=== PATIENT | male | born 1990 | race Two or more races ===

== ENCOUNTER 2017-12-25 10:52 | Inpatient (IN) | payer MEDICAID ==
[~2017-12-25] VITALS: Ht 165.1 cm; Wt 59.4 kg
[2017-12-25 11:51] LABS: BASOPHILS % (AUTO) 0.9 % (0.0-2.0); EOSINOPHILS % (AUTO) 0.2 % (0.0-3.0); HEMATOCRIT 38.4 % (42.0-52.0); HEMOGLOBIN 12.4 G/DL (14.2-18.0); LYMPHOCYTES % (AUTO) 24.7 % (20.0-45.0); MEAN CORPUSCULAR VOLUME 102 FL (80-99); MONOCYTES % (AUTO) 15.6 % (1.0-10.0); NEUTROPHILS % (AUTO) 58.5 % (45.0-75.0); PLATELET COUNT 434 K/UL (150-450); RED BLOOD COUNT 3.77 M/UL (4.70-6.10); RED CELL DISTRIBUTION WIDTH 13.9 % (11.6-14.8); WHITE BLOOD COUNT 6.6 K/UL (4.8-10.8)
[2017-12-25 12:06] LABS: ALANINE AMINOTRANSFERASE 23 U/L (12-78); ALBUMIN 3.9 G/DL (3.4-5.0); ALBUMIN/GLOBULIN RATIO 0.7 (1.0-2.7); ALKALINE PHOSPHATASE 308 U/L (46-116); ASPARTATE AMINO TRANSFERASE 33 U/L (15-37); BILIRUBIN,TOTAL 0.4 MG/DL (0.2-1.0); BLOOD UREA NITROGEN 68 mg/dL (7-18); CALCIUM 9.5 MG/DL (8.5-10.1); CHLORIDE 76 MMOL/L (98-107); CREATININE 1.4 MG/DL (0.55-1.30); SODIUM 133 MMOL/L (136-145)
[2017-12-25 12:25] LABS: POTASSIUM 2.5 MMOL/L (3.5-5.1)
[2017-12-25 12:27] LABS: CARBON DIOXIDE > 45 MMOL/L (21-32)
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
[2017-12-25] MEDS ORDERED: Morphine Sulfate 4mg/ml Inj IVP ONE (14:15)
[2017-12-25 14:47] VITALS: BP 93/63
[2017-12-25] MEDS ORDERED: BENADRYL25 MG ORAL (16:46)
[2017-12-25] MEDS ORDERED: ZYPREXA10 MG ORAL (16:46)
[2017-12-25] MEDS ORDERED: LORazepam Inj 2mg/ml 1ml IV PRN (18:00)
[2017-12-25] MEDS ORDERED: Mylanta II UD 30ml ORAL PRN (18:00)
[2017-12-25] MEDS ORDERED: Miralax 17gm pkt ORAL PRN (18:00)
[2017-12-25] MEDS ORDERED: Nitroglycerin Subl 0.4mg tab SL PRN (18:00)
[2017-12-25] MEDS: D5 1/2NS 1,000 ML IV SCH (18:47)
[2017-12-25 20:00] VITALS: BP 115/68
[2017-12-25] MEDS: Hydromorphone 0.5mg/0.5ml inj IVP PRN (21:36)
[2017-12-25] MEDS: Heparin 5000 units/ml inj SUBQ SCH (21:37)
[2017-12-26] VITALS: BP 135/69
[2017-12-26] MEDS: Hydromorphone 0.5mg/0.5ml inj IVP PRN ×7 (01:13→22:17)
[2017-12-26 04:00] VITALS: BP 120/71
[2017-12-26 07:23] LABS: ALANINE AMINOTRANSFERASE 12 U/L (12-78); ALBUMIN 2.8 G/DL (3.4-5.0); ALBUMIN/GLOBULIN RATIO 0.8 (1.0-2.7); ALKALINE PHOSPHATASE 219 U/L (46-116); AMYLASE 125 U/L (25-115); ASPARTATE AMINO TRANSFERASE 26 U/L (15-37); BILIRUBIN,TOTAL 0.4 MG/DL (0.2-1.0); BLOOD UREA NITROGEN 35 mg/dL (7-18); CALCIUM 7.9 MG/DL (8.5-10.1); CHLORIDE 93 MMOL/L (98-107); CREATININE 0.9 MG/DL (0.55-1.30); SODIUM 140 MMOL/L (136-145)
[2017-12-26 07:34] LABS: BASOPHILS % (AUTO) 1.6 % (0.0-2.0); EOSINOPHILS % (AUTO) 3.6 % (0.0-3.0); HEMATOCRIT 27.8 % (42.0-52.0); HEMOGLOBIN 9.2 G/DL (14.2-18.0); LYMPHOCYTES % (AUTO) 34.1 % (20.0-45.0); MEAN CORPUSCULAR VOLUME 102 FL (80-99); MONOCYTES % (AUTO) 12.1 % (1.0-10.0); NEUTROPHILS % (AUTO) 48.6 % (45.0-75.0); PLATELET COUNT 312 K/UL (150-450); RED BLOOD COUNT 2.72 M/UL (4.70-6.10); RED CELL DISTRIBUTION WIDTH 14.2 % (11.6-14.8); WHITE BLOOD COUNT 4.7 K/UL (4.8-10.8)
[2017-12-26 07:48] LABS: CARBON DIOXIDE > 45 MMOL/L (21-32); POTASSIUM 2.3 MMOL/L (3.5-5.1)
[2017-12-26] MEDS: D5 1/2NS 1,000 ML IV SCH (07:50)
[2017-12-26 08:11] VITALS: BP 127/71
[2017-12-26] MEDS: Pantoprazole Inj IV SCH (08:18)
[2017-12-26] MEDS: Heparin 5000 units/ml inj SUBQ SCH ×2 (08:18→22:19)
[2017-12-26] MEDS ORDERED: DiphenhydrAMINE 50mg/ml Inj IVP PRN (10:00)
[2017-12-26] MEDS: D5 1/2NS w/KCl 20mEq 1,000 ML IV SCH (10:31)
[2017-12-26 12:15] VITALS: BP 125/82
--- NOTE | 2017-12-26 12:43 | Diagnostic Imaging Report ---
Indication: Abdominal pain Technique: Multiplanar grayscale and color Doppler imaging of the abdomen Comparison: Correlation made to concurrent CT of the abdomen and pelvis Findings: Very limited exam given obscuration from overlying bandages. Only parts of the right lobe of the liver and right kidney were visualized. Right lobe liver measures 13 cm in length. Hepatic echogenicity is homogeneous. Portal vein is patent with normal direction of flow. No focal hepatic mass lesion is appreciated however evaluation is limited/incomplete. Right kidney measures 13.5 cm in length. Renal parenchymal echogenicity appears within normal limits. Simple appearing renal cysts are noted. No evidence of hydronephrosis. Color flow to the right kidney is normal. IMPRESSION: Markedly limited, incomplete exam. Per systems technologist, multiple areas of the abdomen were obscured by overlying bandages. Only portions of the right lobe of the liver and right kidney were visualized. No focal liver abnormality appreciated. Right kidney with simple appearing subcentimeter cysts.
[2017-12-26] MEDS ORDERED: Potassium Chloride 40 MEQ in Sodium Chloride 500ML 550 ML IVPB ONE (13:00)
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
[2017-12-26] MEDS: DiphenhydrAMINE 50mg/ml Inj IVP PRN ×2 (15:54→22:17)
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
[2017-12-26 16:00] VITALS: BP 133/87
[2017-12-26] MEDS: Metoclopramide 10mg/10ml Liq GT SCH ×2 (17:46→22:17)
[2017-12-26 20:00] VITALS: BP 145/74
[2017-12-26] MEDS ORDERED: Dyna-Hex 2% Top Sol 2oz TOPIC SCH (20:00)
[2017-12-27] VITALS: BP 128/79
[2017-12-27] MEDS: D5 1/2NS w/KCl 20mEq 1,000 ML IV SCH (00:23)
[2017-12-27] MEDS: Hydromorphone 0.5mg/0.5ml inj IVP PRN ×6 (01:28→17:01)
[2017-12-27 04:00] VITALS: BP 141/89
[2017-12-27] MEDS: DiphenhydrAMINE 50mg/ml Inj IVP PRN ×3 (04:24→16:53)
[2017-12-27] MEDS: Metoclopramide 10mg/10ml Liq GT SCH ×3 (05:41→18:23)
[2017-12-27 07:35] LABS: BASOPHILS % (AUTO) 1.1 % (0.0-2.0); EOSINOPHILS % (AUTO) 5.5 % (0.0-3.0); HEMATOCRIT 33.5 % (42.0-52.0); HEMOGLOBIN 11.2 G/DL (14.2-18.0); LYMPHOCYTES % (AUTO) 30.9 % (20.0-45.0); MEAN CORPUSCULAR VOLUME 102 FL (80-99); MONOCYTES % (AUTO) 16.4 % (1.0-10.0); NEUTROPHILS % (AUTO) 46.1 % (45.0-75.0); PLATELET COUNT 382 K/UL (150-450); RED BLOOD COUNT 3.28 M/UL (4.70-6.10); RED CELL DISTRIBUTION WIDTH 14.4 % (11.6-14.8); WHITE BLOOD COUNT 6.4 K/UL (4.8-10.8)
[2017-12-27 07:47] LABS: INR 1.1 (0.9-1.1)
[2017-12-27 07:53] LABS: AMYLASE 212 U/L (25-115); PHOSPHORUS 3.4 MG/DL (2.5-4.9)
[2017-12-27 08:08] LABS: ALANINE AMINOTRANSFERASE 20 U/L (12-78); ALBUMIN 3.2 G/DL (3.4-5.0); ALBUMIN/GLOBULIN RATIO 0.7 (1.0-2.7); ALKALINE PHOSPHATASE 257 U/L (46-116); ANION GAP 6 mmol/L (5-15); ASPARTATE AMINO TRANSFERASE 35 U/L (15-37); BILIRUBIN,TOTAL 0.4 MG/DL (0.2-1.0); BLOOD UREA NITROGEN 31 mg/dL (7-18); CALCIUM 8.2 MG/DL (8.5-10.1); CARBON DIOXIDE 35 MMOL/L (21-32); CHLORIDE 95 MMOL/L (98-107); FERRITIN 31 NG/ML (8-388); SODIUM 137 MMOL/L (136-145)
[2017-12-27 08:09] LABS: POTASSIUM 2.3 MMOL/L (3.5-5.1)
[2017-12-27 08:20] VITALS: BP 135/82
[2017-12-27 08:34] LABS: % IRON SATURATION 11 % (15-50); IRON 47 ug/dL (50-175); TOTAL IRON BINDING CAPACITY 441 ug/dL (250-450)
[2017-12-27] MEDS: Pantoprazole Inj IV SCH (08:36)
[2017-12-27] MEDS: Heparin 5000 units/ml inj SUBQ SCH (08:37)
[2017-12-27] MEDS ORDERED: Potassium Chloride 50 MEQ in Sodium Chloride 500ML 550 ML IVPB ONE (10:30)
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
[2017-12-27] MEDS ORDERED: Iron Sucrose 100 MG in NS 55 ML IV ONE (12:00)
[2017-12-27 12:20] VITALS: BP 130/91
[2017-12-27] MEDS ORDERED: D5NS w/KCl 40mEq 1000ml 1,000 ML IV SCH (13:00)
[2017-12-27] MEDS ORDERED: Iron Sucrose 200 MG in NS 110 ML IV ONE (13:00)
--- NOTE | 2017-12-27 13:03 | General Surgery Progress Note ---
General Surgery-Progress Note Subjective Additional Comments no acute events. doing well. Objective Last 24 Hour Vital Signs Date Time Temp Pulse Resp B/P (MAP) Pulse Ox O2 Delivery O2 Flow Rate FiO2 12/27/17 08:20 96.9 69 19 135/82 98 Room Air 96.9 12/27/17 04:00 98.3 57 19 141/89 99 Room Air 98.3 12/27/17 00:00 98.1 63 20 128/79 100 98.1 12/26/17 20:00 98.1 59 20 145/74 98 98.1 12/26/17 16:00 98.4 60 20 133/87 99 98.4 I&O Intake and Output 12/26/17 12/27/17 19:00 07:00 Intake Total 1635 ml 825 ml Output Total 400 ml Balance 1635 ml 425 ml Intake Oral 1560 ml IV Total 75 ml 825 ml Stool Total 400 ml # Voids 1 Cardiovascular: RSR Respiratory: clear Abdomen: soft, flat, non-tender Extremities: no cyanosis Laboratory Tests Test 12/27/17 06:00 White Blood Count 6.4 K/UL (4.8-10.8) Red Blood Count 3.28 M/UL (4.70-6.10) L Hemoglobin 11.2 G/DL (14.2-18.0) L Hematocrit 33.5 % (42.0-52.0) L Mean Corpuscular Volume 102 FL (80-99) H Mean Corpuscular Hemoglobin 34.2 PG (27.0-31.0) H Mean Corpuscular Hemoglobin Concent 33.5 G/DL (32.0-36.0) Red Cell Distribution Width 14.4 % (11.6-14.8) Platelet Count 382 K/UL (150-450) Mean Platelet Volume 6.9 FL (6.5-10.1) Neutrophils (%) (Auto) 46.1 % (45.0-75.0) Lymphocytes (%) (Auto) 30.9 % (20.0-45.0) Monocytes (%) (Auto) 16.4 % (1.0-10.0) H Eosinophils (%) (Auto) 5.5 % (0.0-3.0) H Basophils (%) (Auto) 1.1 % (0.0-2.0) Erythrocyte Sedimentation Rate 86 MM/HR (0-15) H Reticulocyte Count Pending Prothrombin Time 11.0 SEC (9.30-11.50) Prothromb Time International Ratio 1.1 (0.9-1.1) Activated Partial Thromboplast Time 24 SEC (23-33) Sodium Level 137 MMOL/L (136-145) Potassium Level 2.3 MMOL/L (3.5-5.1) *L Chloride Level 95 MMOL/L (98-107) L Carbon Dioxide Level 35 MMOL/L (21-32) H Anion Gap 6 mmol/L (5-15) Blood Urea Nitrogen 31 mg/dL (7-18) H Creatinine 1.0 MG/DL (0.55-1.30) Estimat Glomerular Filtration Rate > 60 mL/min (>60) Glucose Level 87 MG/DL (74-106) Calcium Level 8.2 MG/DL (8.5-10.1) L Phosphorus Level 3.4 MG/DL (2.5-4.9) Magnesium Level 2.1 MG/DL (1.8-2.4) Iron Level 47 ug/dL (50-175) L Total Iron Binding Capacity 441 ug/dL (250-450) Percent Iron Saturation 11 % (15-50) L Unsaturated Iron Binding 394 ug/dL (112-346) H Ferritin 31 NG/ML (8-388) Total Bilirubin 0.4 MG/DL (0.2-1.0) Aspartate Amino Transf (AST/SGOT) 35 U/L (15-37) Alanine Aminotransferase (ALT/SGPT) 20 U/L (12-78) Alkaline Phosphatase 257 U/L (46-116) H C-Reactive Protein, Quantitative < 0.4 mg/dL (0.00-0.90) Total Protein 8.0 G/DL (6.4-8.2) Albumin 3.2 G/DL (3.4-5.0) L Globulin 4.8 g/dL Albumin/Globulin Ratio 0.7 (1.0-2.7) L Amylase Level 212 U/L (25-115) H Lipase 104 U/L (73-393) Vitamin B12 Level 1331 PG/ML (193-986) H Folate 61.2 NG/ML (8.6-58.9) H Thyroid Stimulating Hormone (TSH) 3.381 uiU/mL (0.358-3.740) Free Thyroxine 0.95 NG/DL (0.76-1.46) Plan Problems: (1) Acute pancreatitis Assessment & Plan: 27M with complex medical / surgical history. GI intolerant on TPN dependancy. oral intake for comfort. CT very obscure. hx of pancreatitis with intermittent episodes. given history and findings can anticipate intermittent abd pain, nausea, emesis , pancreatitis. dehydration. etc. amylase elevated but clinically no pancreatitis. -TPN -hydration -pain medication -trend labs. no acute surgical intervention necessary. will follow with recs. Davi Dodd Dec 27, 2017 13:03
[2017-12-27 16:05] VITALS: BP 134/93
--- NOTE | 2017-12-27 16:35 | Pulmonology Progress Note ---
Assessment/Plan Problems: (1) Acute pancreatitis (2) Dehydration (3) Hypokalemia (4) Abdominal pain (5) History of nephrectomy (6) H/O splenectomy Assessment/Plan improving respiratory treatment oral feeding for comfort and pleasure pain is controlled K supplelement Subjective ROS Limited/Unobtainable: No Constitutional: Reports: no symptoms Respiratory: Reports: no symptoms Allergies: Coded Allergies: MEPERIDINE (Verified Allergy, Severe, 12/25/17) AMPHOTERICIN B (Verified Allergy, Intermediate, 12/25/17) VORICONAZOLE (Verified Allergy, Intermediate, 12/25/17) MORPHINE (Verified Allergy, Unknown, 12/25/17) Uncoded Allergies: CHAVA (Adverse Reaction, Unknown, 12/25/17) Objective Last 24 Hour Vital Signs Date Time Temp Pulse Resp B/P (MAP) Pulse Ox O2 Delivery O2 Flow Rate FiO2 12/27/17 16:05 98.3 59 21 134/93 99 Room Air 98.3 12/27/17 12:20 98.2 78 17 130/91 Room Air 98.2 12/27/17 12:20 98.4 78 17 130/91 100 Room Air 98.4 12/27/17 08:20 96.9 69 19 135/82 98 Room Air 96.9 12/27/17 04:00 98.3 57 19 141/89 99 Room Air 98.3 12/27/17 00:00 98.1 63 20 128/79 100 98.1 12/26/17 20:00 98.1 59 20 145/74 98 98.1 Intake and Output 12/26/17 12/27/17 19:00 07:00 Intake Total 1635 ml 825 ml Output Total 400 ml Balance 1635 ml 425 ml Intake Oral 1560 ml IV Total 75 ml 825 ml Stool Total 400 ml # Voids 1 General Appearance: WD/WN HEENT: normocephalic, atraumatic Respiratory/Chest: lungs clear, no respiratory distress Cardiovascular: normal peripheral pulses, regular rhythm Genitourinary: normal external genitalia Extremities: no clubbing Skin: no rash, no lesions Laboratory Tests 12/27/17 06:00: White Blood Count 6.4, Red Blood Count 3.28L, Hemoglobin 11.2L, Hematocrit 33.5L , Mean Corpuscular Volume 102H, Mean Corpuscular Hemoglobin 34.2H, Mean Corpuscular Hemoglobin Concent 33.5, Red Cell Distribution Width 14.4, Platelet Count 382, Mean Platelet Volume 6.9, Neutrophils (%) (Auto) 46.1, Lymphocytes (% ) (Auto) 30.9, Monocytes (%) (Auto) 16.4H, Eosinophils (%) (Auto) 5.5H, Basophils (%) (Auto) 1.1, Erythrocyte Sedimentation Rate 86H, Reticulocyte Count 0.5, Prothrombin Time 11.0, Prothromb Time International Ratio 1.1, Activated Partial Thromboplast Time 24, Sodium Level 137, Potassium Level 2.3*L , Chloride Level 95L, Carbon Dioxide Level 35H, Anion Gap 6, Blood Urea Nitrogen 31H, Creatinine 1.0, Estimat Glomerular Filtration Rate > 60, Glucose Level 87, Calcium Level 8.2L, Phosphorus Level 3.4, Magnesium Level 2.1, Iron Level 47L, Total Iron Binding Capacity 441, Percent Iron Saturation 11L, Unsaturated Iron Binding 394H, Ferritin 31, Total Bilirubin 0.4, Aspartate Amino Transf (AST/SGOT) 35, Alanine Aminotransferase (ALT/SGPT) 20, Alkaline Phosphatase 257H, C-Reactive Protein, Quantitative < 0.4, Total Protein 8.0, Albumin 3.2L, Globulin 4.8, Albumin/Globulin Ratio 0.7L, Amylase Level 212H, Lipase 104, Vitamin B12 Level 1331H, Folate 61.2H, Thyroid Stimulating Hormone ( TSH) 3.381, Free Thyroxine 0.95 Current Medications Medications (Trade) Dose Ordered Sig/Serenity Route PRN Reason Start Time Stop Time Status Last Admin Dose Admin Acetaminophen (Tylenol) 650 mg Q4H PRN ORAL fever (temp >100.5F) 12/25/17 18:00 01/24/18 17:59 Chlorhexidine Gluconate (Ashlyn-Hex 2%) 1 applic DAILY@2000 TOPIC 12/26/17 20:00 01/25/18 19:59 12/26/17 22:20 Dextrose (Dextrose 50%) STAT PRN IV Hypoglycemia 12/25/17 18:00 01/24/18 17:59 Dextrose/ Electrolytes 1,000 ml @ 75 mls/hr [id number] IV 12/27/17 13:00 01/26/18 12:59 12/27/17 15:46 Diphenhydramine HCl (Benadryl) 50 mg Q6H PRN IVP Itching 12/26/17 15:30 01/25/18 15:29 12/27/17 10:34 Fat Emulsion Intravenous 143 ml/Amino Acids/ Electrolytes/ Dextrose 2,580 ml @ 0 mls/hr DAILY@2100 IV 12/27/17 21:00 01/26/18 20:59 Heparin Sodium (Porcine) (Heparin 5000 units/ml) 5,000 units EVERY 12 HOURS SUBQ 12/25/17 21:00 01/24/18 20:59 12/27/17 08:37 Hydromorphone HCl (Dilaudid) 1.5 mg Q3H PRN IVP Severe Pain (Pain Scale 7-10) 12/27/17 14:00 01/03/18 13:59 12/27/17 14:00 Lactated Ringer's (Lactated Ringer's 1000ml) 3,500 ml DAILY@2100 IVLG 12/27/17 21:00 01/26/18 20:59 Lorazepam (Ativan 2mg/ml 1ml) 1 mg Q4H PRN IV agitation 12/25/17 18:00 01/01/18 17:59 Metoclopramide HCl (Reglan) 5 mg EVERY 6 HOURS GT 12/26/17 18:00 01/25/18 17:59 12/27/17 05:41 Nitroglycerin (Ntg) 0.4 mg Q5M X 3 DOSES PRN SL Prn Chest Pain 12/25/17 18:00 01/24/18 17:59 Ondansetron HCl (Zofran) 4 mg Q6H PRN IVP Nausea & Vomiting 12/25/17 18:00 01/24/18 17:59 Pantoprazole (Protonix) 40 mg DAILY IV 12/26/17 09:00 01/25/18 08:59 12/27/17 08:36 Potassium Chloride 100 ml @ 50 mls/hr ONCE ONCE IVPB 12/27/17 15:30 12/27/17 17:29 12/27/17 15:42 Temazepam (Restoril) 15 mg HSPRN PRN ORAL Insomnia 12/25/17 18:00 01/01/18 17:59 CHANDRAKANT VARGAS Dec 27, 2017 16:35
[2017-12-27] MEDS ORDERED: NS 275ml ONE (18:59)
[2017-12-27] MEDS ORDERED: Tubing IV Secondary IV ONE ×3 (18:59)
[2017-12-27] MEDS ORDERED: D5 1/2NS 1000ml IV ONE (18:59)
[2017-12-27] MEDS ORDERED: LR 1000ml IVLG SCH (21:00)
[2017-12-27] MEDS ORDERED: FAT EMULSION IV SCH (21:00)
[2017-12-27] MEDS ORDERED: TPN IV SCH (21:00)
--- NOTE | 2017-12-28 15:55 | Discharge Summary ---
Discharge Summary Hospital Course Date of Admission Dec 25, 2017 at 13:45 Date of Discharge Dec 27, 2017 at 19:00 Admitting Diagnosis ABDOMINAL PAIN, DEHYDRATION HPI Severiano Bell is a 27 year old male who was admitted on Dec 25, 2017 at 13:45 for Abdominal Pain, Dehydration Hospital Course [id number] Discharge Discharge Disposition Patient was discharged tO [facility] Discharge Diagnoses: Tita Gordillo NP Dec 28, 2017 15:55
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
== END 2017-12-27 19:00 | disposition home or self-care (01) | DRG 282 ==
LOC: EDBD 10:52 → EMR 12:20 → 4E 13:45 → EDBEDREQ 15:43 → 4E 17:22
DX: K85.90 Acute pancreatitis without necrosis or infection, unspecified (principal); Z43.1 Encounter for attention to gastrostomy; E87.6 Hypokalemia; E86.0 Dehydration; R10.9 Unspecified abdominal pain; Z90.5 Acquired absence of kidney; Z90.81 Acquired absence of spleen; Z88.6 Allergy status to analgesic agent; Z88.8 Allergy status to other drugs, medicaments and biological substances; K86.1 Other chronic pancreatitis; X95.9XXS Assault by unspecified firearm discharge, sequela
CPT/HCPCS: 36415; 74177; 76700; 80053; 82150; 82607; 82728; 82746; 83540; 83550; 83690; 83735; 84100; 84439; 84443; 85025; 85044; 85610; 85651; 85730; 86140; 87040; 87081; 99285; J2405

== ENCOUNTER 2017-12-29 16:55 | Inpatient (IN) | payer MEDICAID ==
[~2017-12-29] VITALS: Ht 165.1 cm; Wt 47.6 kg
[~2017-12-29 16:55] MED LIST: BENADRYL25 MG ORAL; ZYPREXA10 MG ORAL
[2017-12-29] MEDS ORDERED: HYDROmorphone 1mg/ml Carpuject IVP ONE ×2 (17:45→19:30)
[2017-12-29] MEDS ORDERED: Haloperidol 5mg/ml Inj IM ONE (17:45)
[2017-12-29] MEDS ORDERED: DiphenhydrAMINE 50mg/ml Inj IVP ONE (17:45)
[2017-12-29 18:22] LABS: BASOPHILS % (AUTO) 0.6 % (0.0-2.0); EOSINOPHILS % (AUTO) 0.1 % (0.0-3.0); HEMATOCRIT 39.2 % (42.0-52.0); HEMOGLOBIN 12.9 G/DL (14.2-18.0); LYMPHOCYTES % (AUTO) 12.8 % (20.0-45.0); MEAN CORPUSCULAR VOLUME 100 FL (80-99); MONOCYTES % (AUTO) 14.8 % (1.0-10.0); NEUTROPHILS % (AUTO) 71.7 % (45.0-75.0); PLATELET COUNT 395 K/UL (150-450); RED BLOOD COUNT 3.91 M/UL (4.70-6.10); RED CELL DISTRIBUTION WIDTH 13.4 % (11.6-14.8); WHITE BLOOD COUNT 12.6 K/UL (4.8-10.8)
[2017-12-29 18:27] LABS: ALANINE AMINOTRANSFERASE 21 U/L (12-78); ALBUMIN 4.5 G/DL (3.4-5.0); ALBUMIN/GLOBULIN RATIO 0.7 (1.0-2.7); ALKALINE PHOSPHATASE 327 U/L (46-116); AMYLASE 120 U/L (25-115); ASPARTATE AMINO TRANSFERASE 29 U/L (15-37); BLOOD UREA NITROGEN 44 mg/dL (7-18); CALCIUM 10.1 MG/DL (8.5-10.1); CHLORIDE 84 MMOL/L (98-107); CREATININE 2.1 MG/DL (0.55-1.30); SODIUM 138 MMOL/L (136-145)
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
[2017-12-29 18:43] LABS: POTASSIUM 2.4 MMOL/L (3.5-5.1)
[2017-12-29 18:45] LABS: CARBON DIOXIDE > 45 MMOL/L (21-32)
[2017-12-29] MEDS ORDERED: Potassium Chloride 40 MEQ in Sodium Chloride 500ML 550 ML IVPB ONE (18:45)
[2017-12-29 20:36] VITALS: BP 93/72
[2017-12-29] MEDS ORDERED: FENTANYL1 EAC3 TDERMAL (20:43)
[2017-12-29] MEDS ORDERED: TPN ELECTROLYTE20 M1 IV (21:21)
[2017-12-29] MEDS ORDERED: Miralax 17gm pkt ORAL PRN (23:30)
[2017-12-29] MEDS ORDERED: LORazepam Inj 2mg/ml 1ml IV PRN (23:30)
[2017-12-29] MEDS ORDERED: Mylanta II UD 30ml ORAL PRN (23:30)
[2017-12-29] MEDS ORDERED: Morphine Sulfate 2mg/ml Inj IVP PRN (23:30)
[2017-12-29] MEDS ORDERED: Nitroglycerin Subl 0.4mg tab SL PRN (23:30)
[2017-12-30] VITALS (7 sets, daily range): BP systolic 96–107; BP diastolic 56–80
[2017-12-30] MEDS: Potassium Chloride 40 MEQ in D5 1/2NS 1,000 ML IV SCH ×2 (01:55→09:36)
[2017-12-30 06:16] LABS: BASOPHILS % (AUTO) 0.9 % (0.0-2.0); EOSINOPHILS % (AUTO) 0.5 % (0.0-3.0); HEMATOCRIT 38.5 % (42.0-52.0); LYMPHOCYTES % (AUTO) 19.2 % (20.0-45.0); MEAN CORPUSCULAR VOLUME 101 FL (80-99); MONOCYTES % (AUTO) 18.9 % (1.0-10.0); NEUTROPHILS % (AUTO) 60.5 % (45.0-75.0); PLATELET COUNT 367 K/UL (150-450); RED BLOOD COUNT 3.82 M/UL (4.70-6.10); RED CELL DISTRIBUTION WIDTH 13.6 % (11.6-14.8); WHITE BLOOD COUNT 10.3 K/UL (4.8-10.8)
[2017-12-30 06:43] LABS: ALANINE AMINOTRANSFERASE 20 U/L (12-78); ALBUMIN 4.5 G/DL (3.4-5.0); ALBUMIN/GLOBULIN RATIO 0.8 (1.0-2.7); ALKALINE PHOSPHATASE 320 U/L (46-116); AMYLASE 95 U/L (25-115); ASPARTATE AMINO TRANSFERASE 30 U/L (15-37); BILIRUBIN,TOTAL 0.7 MG/DL (0.2-1.0); BLOOD UREA NITROGEN 50 mg/dL (7-18); CALCIUM 9.6 MG/DL (8.5-10.1); CHLORIDE 81 MMOL/L (98-107); CREATININE 3.5 MG/DL (0.55-1.30); POTASSIUM 3.3 MMOL/L (3.5-5.1); SODIUM 137 MMOL/L (136-145)
[2017-12-30 06:48] LABS: CARBON DIOXIDE > 45 MMOL/L (21-32)
[2017-12-30] MEDS ORDERED: DiphenhydrAMINE 50mg/ml Inj IVP PRN ×3 (08:30→15:45)
[2017-12-30] MEDS ORDERED: Pantoprazole Inj IV SCH ×2 (09:00→18:00)
[2017-12-30] MEDS ORDERED: Hydromorphone 0.5mg/0.5ml inj IVP PRN ×2 (09:00→17:00)
[2017-12-30] MEDS ORDERED: Heparin 5000 units/ml inj SUBQ SCH (09:00)
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
[2017-12-30] MEDS ORDERED: Sodium Chloride 500ML 500 ML IV ONE (11:30)
[2017-12-30] MEDS: D5NS w/KCl 40mEq 1000ml 1,000 ML IV SCH ×4 (12:22→21:23)
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
--- NOTE | 2017-12-30 14:53 | General Progress Note ---
Assessment/Plan Assessment/Plan GI CONSULT Dictated Will resume TPN tomorrow. Thank you Mode Martines MD Subjective Allergies: Coded Allergies: MEPERIDINE (Verified Allergy, Severe, 12/25/17) AMPHOTERICIN B (Verified Allergy, Intermediate, 12/25/17) VORICONAZOLE (Verified Allergy, Intermediate, 12/25/17) MORPHINE (Verified Allergy, Unknown, 12/25/17) Uncoded Allergies: CHAVA (Adverse Reaction, Unknown, 12/25/17) Objective Last 24 Hour Vital Signs Date Time Temp Pulse Resp B/P (MAP) Pulse Ox O2 Delivery O2 Flow Rate FiO2 12/30/17 12:00 91 12/30/17 12:00 97.9 89 18 107/56 99 Room Air 97.9 12/30/17 08:00 94 12/30/17 08:00 97.5 104 18 96/70 95 Room Air 97.5 12/30/17 04:00 96 12/30/17 04:00 97.2 105 18 96/74 96 Room Air 97.2 12/30/17 01:15 97.7 90 18 97/80 97 Room Air 97.7 12/30/17 01:00 92 12/30/17 00:50 98.5 107 12 99/74 98 Room Air 98.5 12/30/17 00:46 98.5 107 12 99/74 98 Room Air 98.5 12/29/17 20:36 98.5 103 14 93/72 97 Room Air 98.5 12/29/17 20:13 100.1 12/29/17 19:43 100.1 12/29/17 17:54 100.1 12/29/17 17:06 100.1 126 23 104/71 95 Room Air 100.0 Intake and Output 12/29/17 12/30/17 19:00 07:00 Intake Total 533 ml Output Total 3200 ml Balance -2667 ml Intake Oral 25 ml IV Total 508 ml Output Stool Total 3200 ml Laboratory Tests 12/29/17 17:49: White Blood Count 12.6H, Red Blood Count 3.91L, Hemoglobin 12.9L, Hematocrit 39.2L, Mean Corpuscular Volume 100H, Mean Corpuscular Hemoglobin 32.9H, Mean Corpuscular Hemoglobin Concent 32.9, Red Cell Distribution Width 13.4, Platelet Count 395, Mean Platelet Volume 7.5, Neutrophils (%) (Auto) 71.7, Lymphocytes (% ) (Auto) 12.8L, Monocytes (%) (Auto) 14.8H, Eosinophils (%) (Auto) 0.1, Basophils (%) (Auto) 0.6, Sodium Level 138, Potassium Level 2.4*L, Chloride Level 84L, Carbon Dioxide Level > 45*H, Blood Urea Nitrogen 44H, Creatinine 2.1H , Estimat Glomerular Filtration Rate 38.4, Glucose Level 122H, Calcium Level 10.1, Total Bilirubin 1.0, Aspartate Amino Transf (AST/SGOT) 29, Alanine Aminotransferase (ALT/SGPT) 21, Alkaline Phosphatase 327H, Total Protein 10.6H, Albumin 4.5, Globulin 6.1, Albumin/Globulin Ratio 0.7L, Amylase Level 120H, Lipase 98 12/30/17 05:30: White Blood Count 10.3, Red Blood Count 3.82L, Hemoglobin 13.0L, Hematocrit 38.5L, Mean Corpuscular Volume 101H, Mean Corpuscular Hemoglobin 34.1H, Mean Corpuscular Hemoglobin Concent 33.8, Red Cell Distribution Width 13.6, Platelet Count 367, Mean Platelet Volume 7.4, Neutrophils (%) (Auto) 60.5, Lymphocytes (% ) (Auto) 19.2L, Monocytes (%) (Auto) 18.9H, Eosinophils (%) (Auto) 0.5, Basophils (%) (Auto) 0.9, Sodium Level 137, Potassium Level 3.3L, Chloride Level 81L, Carbon Dioxide Level > 45*H, Blood Urea Nitrogen 50H, Creatinine 3.5# H, Estimat Glomerular Filtration Rate 21.3, Glucose Level 143H, Calcium Level 9.6, Total Bilirubin 0.7, Aspartate Amino Transf (AST/SGOT) 30, Alanine Aminotransferase (ALT/SGPT) 20, Alkaline Phosphatase 320H, Total Protein 10.5H, Albumin 4.5, Globulin 6.0, Albumin/Globulin Ratio 0.8L, Amylase Level 95, Lipase 81, Activated Partial Thromboplast Time 27, C-Reactive Protein, Quantitative 7.4H Height (Feet): 5 Height (Inches): 5.00 Weight (Pounds): 105 MODE MARTINES Dec 30, 2017 14:53
[2017-12-30] MEDS ORDERED: Nitroglycerin Subl 0.4mg tab SL PRN (16:30)
[2017-12-30] MEDS ORDERED: LORazepam Inj 2mg/ml 1ml IV PRN (17:00)
[2017-12-30] MEDS ORDERED: Miralax 17gm pkt ORAL PRN (17:00)
[2017-12-30] MEDS: DiphenhydrAMINE 50mg/ml Inj IVP PRN (18:46)
[2017-12-30] MEDS: Pantoprazole Inj IV SCH (18:46)
[2017-12-30] MEDS: Hydromorphone 0.5mg/0.5ml inj IVP PRN ×2 (18:47→22:51)
[2017-12-30] MEDS ORDERED: Dyna-Hex 2% Top Sol 2oz TOPIC SCH (20:00)
[2017-12-30] MEDS: Dyna-Hex 2% Top Sol 2oz TOPIC SCH (21:22)
[2017-12-30] MEDS: Heparin 5000 units/ml inj SUBQ SCH (21:25)
[2017-12-31] VITALS: BP 91/61
[2017-12-31 01:58] LABS: BILIRUBIN, URINE NEGATIVE (NEGATIVE); GLUCOSE, URINE (UA) NEGATIVE (NEGATIVE); KETONES,URINE NEGATIVE (NEGATIVE); LEUKOCYTE ESTERASE ,URINE 1+ (NEGATIVE); NITRITE,URINE NEGATIVE (NEGATIVE); PH,URINE 8 (4.5-8.0); PROTEIN,URINE 2+ (NEGATIVE); UROBILINOGEN,URINE NORMAL MG/DL (0.0-1.0)
[2017-12-31 02:05] LABS: APPEARANCE,URINE SLIGHTLY CLOUDY; COLOR,URINE YELLOW
[2017-12-31] MEDS: Hydromorphone 0.5mg/0.5ml inj IVP PRN ×6 (02:55→23:49)
[2017-12-31] MEDS: DiphenhydrAMINE 50mg/ml Inj IVP PRN ×3 (02:56→21:11)
[2017-12-31] MEDS: D5NS w/KCl 40mEq 1000ml 1,000 ML IV SCH ×4 (03:00→18:09)
[2017-12-31 04:00] VITALS: BP 114/78
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
[2017-12-31 06:40] LABS: HEMATOCRIT 26.8 % (42.0-52.0); HEMOGLOBIN 8.9 G/DL (14.2-18.0); MEAN CORPUSCULAR VOLUME 102 FL (80-99); PLATELET COUNT 271 K/UL (150-450); RED BLOOD COUNT 2.62 M/UL (4.70-6.10); RED CELL DISTRIBUTION WIDTH 13.4 % (11.6-14.8); WHITE BLOOD COUNT 5.8 K/UL (4.8-10.8)
[2017-12-31 07:30] LABS: ALANINE AMINOTRANSFERASE 15 U/L (12-78); ALBUMIN 2.7 G/DL (3.4-5.0); ALBUMIN/GLOBULIN RATIO 0.7 (1.0-2.7); ALKALINE PHOSPHATASE 198 U/L (46-116); ANION GAP 4 mmol/L (5-15); ASPARTATE AMINO TRANSFERASE 18 U/L (15-37); BILIRUBIN,TOTAL 0.4 MG/DL (0.2-1.0); BLOOD UREA NITROGEN 35 mg/dL (7-18); CALCIUM 7.9 MG/DL (8.5-10.1); CARBON DIOXIDE 36 MMOL/L (21-32); CHLORIDE 103 MMOL/L (98-107); CHOLESTEROL 146 MG/DL (< 200); CREATININE 1.9 MG/DL (0.55-1.30); FERRITIN 237 NG/ML (8-388); HDL CHOLESTEROL 41 MG/DL (40-60); PHOSPHORUS 3.1 MG/DL (2.5-4.9); POTASSIUM 3.4 MMOL/L (3.5-5.1); SODIUM 143 MMOL/L (136-145); TRIGLYCERIDES 62 MG/DL (30-150)
[2017-12-31 07:33] LABS: % IRON SATURATION 17 % (15-50); IRON 46 ug/dL (50-175); TOTAL IRON BINDING CAPACITY 276 ug/dL (250-450)
[2017-12-31 08:00] VITALS: BP 102/60
[2017-12-31] MEDS: Heparin 5000 units/ml inj SUBQ SCH ×2 (09:07→21:00)
[2017-12-31] MEDS: Pantoprazole Inj IV SCH ×2 (09:10→18:09)
[2017-12-31] MEDS ORDERED: Iron Sucrose 200 MG in NS 50 ML IV ONE (10:00)
--- NOTE | 2017-12-31 10:22 | Diagnostic Imaging Report ---
Indication:Abdominal pain Technique: Grayscale and duplex Doppler imaging of the abdomen performed. Comparison: None Findings: Study is incomplete. Patient asked to stop scanning during the examination which only barely commenced. Visualized part of the liver is unremarkable. IMPRESSION: Incomplete study.
--- NOTE | 2017-12-31 10:51 | Nephrology Progress Note ---
Assessment/Plan Problem List: (1) Acute kidney injury (2) Dehydration (3) Hypokalemia Assessment (1) Acute renal failure resolving (2) Dehydration resolving (3) Hypokalemia resolving (4) h/o Abdominal pain (5) History of nephrectomy (6) H/O splenectomy Plan Plan: D%NS with K 200 cc hour until TPN starts Urine studies Monitor renal parameters Per orders Subjective ROS Limited/Unobtainable: No Objective Objective Last 24 Hour Vital Signs Date Time Temp Pulse Resp B/P (MAP) Pulse Ox O2 Delivery O2 Flow Rate FiO2 12/31/17 08:00 97.4 59 18 102/60 99 97.4 12/31/17 04:00 98.4 64 21 114/78 98 98.4 12/31/17 00:00 97.2 67 20 91/61 98 97.2 12/30/17 20:15 97.0 76 18 99/68 95 Room Air 97.0 12/30/17 16:33 98.1 74 18 100/69 98 Room Air 98.1 12/30/17 12:00 91 12/30/17 12:00 97.9 89 18 107/56 99 Room Air 97.9 Intake and Output 12/30/17 12/31/17 19:00 07:00 Intake Total 800 ml 2000 ml Output Total 2000 ml Balance 800 ml 0 ml Intake Oral 600 ml 600 ml IV Total 200 ml 1400 ml Output Stool Total 2000 ml Laboratory Tests 12/31/17 01:00: Urine Color Yellow, Urine Appearance Slightly cloudy, Urine pH 8, Urine Specific [place] 1.010, Urine Protein 2+H, Urine Glucose (UA) Negative, Urine Ketones Negative, Urine Occult Blood 4+H, Urine Nitrite Negative, Urine Bilirubin Negative, Urine Urobilinogen Normal, Urine Leukocyte Esterase 1+H, Urine RBC TntcH, Urine WBC 2-4, Urine Squamous Epithelial Cells Few, Urine Bacteria Few, Urine Hyaline Casts 0-2H, Urine Fine Granular Casts 2-4H, Urine Random Sodium 58, Urine Opiates Screen PositiveH, Urine Barbiturates Screen Negative, Phencyclidine (PCP) Screen Negative, Urine Amphetamines Screen Negative, Urine Benzodiazepines Screen Negative, Urine Cocaine Screen Negative, Urine Marijuana (THC) Screen PositiveH 12/31/17 06:00: White Blood Count 5.8, Red Blood Count 2.62L, Hemoglobin 8.9#L, Hematocrit 26.8# L, Mean Corpuscular Volume 102H, Mean Corpuscular Hemoglobin 34.1H, Mean Corpuscular Hemoglobin Concent 33.3, Red Cell Distribution Width 13.4, Platelet Count 271, Mean Platelet Volume 7.9, Neutrophils (%) (Auto) , Lymphocytes (%) ( Auto) , Monocytes (%) (Auto) , Eosinophils (%) (Auto) , Basophils (%) (Auto) , Sodium Level 143, Potassium Level 3.4L, Chloride Level 103, Carbon Dioxide Level 36H, Anion Gap 4L, Blood Urea Nitrogen 35H, Creatinine 1.9H, Estimat Glomerular Filtration Rate 43.1, Glucose Level 92, Uric Acid 7.7H, Calcium Level 7.9L, Phosphorus Level 3.1, Magnesium Level 1.8, Iron Level 46L, Total Iron Binding Capacity 276, Percent Iron Saturation 17, Unsaturated Iron Binding 230, Ferritin 237, Total Bilirubin 0.4, Aspartate Amino Transf (AST/SGOT) 18, Alanine Aminotransferase (ALT/SGPT) 15, Alkaline Phosphatase 198H, Pro-B-Type Natriuretic Peptide 26, Total Protein 6.8#, Albumin 2.7L, Globulin 4.1, Albumin/ Globulin Ratio 0.7L, Triglycerides Level 62, Cholesterol Level 146, LDL Cholesterol 92, HDL Cholesterol 41, Cholesterol/HDL Ratio 3.6, Vitamin B12 Level 995H, Folate 44.9 Height (Feet): 5 Height (Inches): 5.00 Weight (Pounds): 105 General Appearance: no apparent distress Objective no change LANDEN CEBALLOS Dec 31, 2017 10:51
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
[2017-12-31 12:00] VITALS: BP 108/78
[2017-12-31] MEDS ORDERED: Potassium Chloride 40 MEQ in Sodium Chloride 500ML 550 ML IVPB ONE (12:00)
[2017-12-31] MEDS ORDERED: NS 500ML ONE (15:05)
[2017-12-31 16:15] VITALS: BP 108/65
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
[2017-12-31 20:00] VITALS: BP_SYST 101; BP_SYST 132; BP_DIAS 66; BP_DIAS 74
[2017-12-31] MEDS: Dyna-Hex 2% Top Sol 2oz TOPIC SCH (20:00)
[2017-12-31] MEDS ORDERED: TPN IV SCH (21:00)
[2017-12-31] MEDS ORDERED: FAT EMULSION 20% IV SCH (21:00)
[2018-01-01] VITALS: BP 105/66
[2018-01-01] MEDS: DiphenhydrAMINE 50mg/ml Inj IVP PRN ×4 (03:41→21:49)
[2018-01-01 04:00] VITALS: BP 106/68
[2018-01-01] MEDS: Hydromorphone 0.5mg/0.5ml inj IVP PRN ×4 (04:11→16:18)
[2018-01-01 07:10] LABS: HEMATOCRIT 27.5 % (42.0-52.0); HEMOGLOBIN 8.8 G/DL (14.2-18.0); MEAN CORPUSCULAR VOLUME 105 FL (80-99); PLATELET COUNT 183 K/UL (150-450); RED BLOOD COUNT 2.61 M/UL (4.70-6.10); RED CELL DISTRIBUTION WIDTH 14.3 % (11.6-14.8); WHITE BLOOD COUNT 5.2 K/UL (4.8-10.8)
[2018-01-01 07:35] LABS: ALANINE AMINOTRANSFERASE 17 U/L (12-78); ALBUMIN 2.9 G/DL (3.4-5.0); ALBUMIN/GLOBULIN RATIO 0.7 (1.0-2.7); ALKALINE PHOSPHATASE 202 U/L (46-116); ANION GAP 7 mmol/L (5-15); ASPARTATE AMINO TRANSFERASE 24 U/L (15-37); BILIRUBIN,TOTAL 0.4 MG/DL (0.2-1.0); BLOOD UREA NITROGEN 19 mg/dL (7-18); CALCIUM 8.5 MG/DL (8.5-10.1); CARBON DIOXIDE 25 MMOL/L (21-32); CHLORIDE 109 MMOL/L (98-107); GAMMA GLUTAMYL TRANSPEPTIDASE 289 U/L (5-85); PHOSPHORUS 3.2 MG/DL (2.5-4.9); POTASSIUM 5.6 MMOL/L (3.5-5.1); SODIUM 141 MMOL/L (136-145)
[2018-01-01 08:00] VITALS: BP 113/71
[2018-01-01] MEDS: Heparin 5000 units/ml inj SUBQ SCH ×2 (09:00→21:00)
[2018-01-01] MEDS: Pantoprazole Inj IV SCH (09:34)
[2018-01-01 12:00] VITALS: BP 123/76
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
--- NOTE | 2018-01-01 14:53 | Nephrology Progress Note ---
Assessment/Plan Problem List: (1) Acute kidney injury (2) Dehydration (3) Hypokalemia Assessment (1) Acute renal failure resolving (2) Dehydration resolving (3) Hypokalemia resolving (4) h/o Abdominal pain (5) History of nephrectomy (6) H/O splenectomy Plan Plan: D%NS with K 200 cc hour until TPN starts Urine studies Monitor renal parameters Per orders Subjective ROS Limited/Unobtainable: No Constitutional: Reports: malaise Objective Objective Last 24 Hour Vital Signs Date Time Temp Pulse Resp B/P (MAP) Pulse Ox O2 Delivery O2 Flow Rate FiO2 01/01/18 12:00 99.2 68 20 123/76 98 99.2 01/01/18 08:00 98.2 69 20 113/71 98 98.2 01/01/18 04:41 97.3 01/01/18 04:00 97.3 60 21 106/68 99 97.3 01/01/18 00:00 97.3 53 18 105/66 99 97.3 12/31/17 23:49 97.6 12/31/17 20:00 97.6 66 20 101/74 100 97.6 12/31/17 16:15 97.6 57 18 108/65 99 Room Air 97.6 Intake and Output 12/31/17 01/01/18 19:00 07:00 Intake Total 240 ml 2340 ml Output Total 400 ml Balance 240 ml 1940 ml Intake Oral 240 ml 1000 ml IV Total 1340 ml Output Urine Total 400 ml # Voids 5 Laboratory Tests 01/01/18 06:00: White Blood Count 5.2, Red Blood Count 2.61L, Hemoglobin 8.8L, Hematocrit 27.5L , Mean Corpuscular Volume 105H, Mean Corpuscular Hemoglobin 33.5H, Mean Corpuscular Hemoglobin Concent 31.8L, Red Cell Distribution Width 14.3, Platelet Count 183, Mean Platelet Volume 7.0, Neutrophils (%) (Auto) , Lymphocytes (%) (Auto) , Monocytes (%) (Auto) , Eosinophils (%) (Auto) , Basophils (%) (Auto) , Differential Total Cells Counted 100, Neutrophils % ( Manual) 40L, Lymphocytes % (Manual) 32, Monocytes % (Manual) 22H, Eosinophils % (Manual) 6H, Basophils % (Manual) 0, Band Neutrophils 0, Platelet Estimate Adequate, Platelet Morphology Normal, Hypochromasia 2+, Anisocytosis 1+, Macrocytosis 1+, Erythrocyte Sedimentation Rate 77H, Sodium Level 141, Potassium Level 5.6#H, Chloride Level 109H, Carbon Dioxide Level 25, Anion Gap 7 , Blood Urea Nitrogen 19H, Creatinine 1.0, Estimat Glomerular Filtration Rate > 60, Glucose Level 53L, Uric Acid 4.8, Calcium Level 8.5, Phosphorus Level 3.2, Magnesium Level 2.1, Total Bilirubin 0.4, Gamma Glutamyl Transpeptidase 289H, Aspartate Amino Transf (AST/SGOT) 24, Alanine Aminotransferase (ALT/SGPT) 17, Alkaline Phosphatase 202H, C-Reactive Protein, Quantitative 1.7H, Total Protein 7.2, Albumin 2.9L, Globulin 4.3, Albumin/Globulin Ratio 0.7L, Amylase Level 86, Lipase 82 01/01/18 12:01: Sodium Level [Pending], Potassium Level [Pending], Chloride Level [Pending], Carbon Dioxide Level [Pending], Blood Urea Nitrogen [Pending], Creatinine [ Pending], Estimat Glomerular Filtration Rate [Pending], Glucose Level [Pending] , Calcium Level [Pending] Height (Feet): 5 Height (Inches): 5.00 Weight (Pounds): 105 General Appearance: no apparent distress Objective no change LANDEN CEBALLOS Jan 01, 2018 14:52
[2018-01-01 15:50] VITALS: BP 133/74
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
[2018-01-01] MEDS: Pantoprazole Inj IVP SCH (16:17)
[2018-01-01 17:14] LABS: ANION GAP 6 mmol/L (5-15); BLOOD UREA NITROGEN 25 mg/dL (7-18); CALCIUM 9.3 MG/DL (8.5-10.1); CARBON DIOXIDE 27 MMOL/L (21-32); CHLORIDE 107 MMOL/L (98-107); POTASSIUM 4.6 MMOL/L (3.5-5.1); SODIUM 140 MMOL/L (136-145)
[2018-01-01 20:00] VITALS: BP 118/77
[2018-01-01] MEDS: Dyna-Hex 2% Top Sol 2oz TOPIC SCH (20:12)
[2018-01-01] MEDS ORDERED: FAT EMULSION 20% IV SCH (21:00)
[2018-01-01] MEDS ORDERED: TPN IV SCH (21:00)
[2018-01-02] VITALS: BP 111/69
[2018-01-02] MEDS: DiphenhydrAMINE 50mg/ml Inj IVP PRN ×4 (03:52→22:07)
[2018-01-02 04:00] VITALS: BP 108/73
[2018-01-02 08:00] VITALS: BP 115/79
[2018-01-02] MEDS: Pantoprazole Inj IVP SCH (08:24)
[2018-01-02] MEDS: Heparin 5000 units/ml inj SUBQ SCH ×2 (08:33→20:36)
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
[2018-01-02 10:10] LABS: ALANINE AMINOTRANSFERASE 16 U/L (12-78); ALBUMIN 3.3 G/DL (3.4-5.0); ALBUMIN/GLOBULIN RATIO 0.7 (1.0-2.7); ALKALINE PHOSPHATASE 227 U/L (46-116); ANION GAP 10 mmol/L (5-15); ASPARTATE AMINO TRANSFERASE 20 U/L (15-37); BILIRUBIN,TOTAL 0.4 MG/DL (0.2-1.0); BLOOD UREA NITROGEN 33 mg/dL (7-18); CARBON DIOXIDE 24 MMOL/L (21-32); CHLORIDE 104 MMOL/L (98-107); CREATININE 1.1 MG/DL (0.55-1.30); PHOSPHORUS 4.2 MG/DL (2.5-4.9); POTASSIUM 3.9 MMOL/L (3.5-5.1); SODIUM 137 MMOL/L (136-145)
[2018-01-02 12:00] VITALS: BP 125/82
--- NOTE | 2018-01-02 12:42 | Nephrology Progress Note ---
Assessment/Plan Problem List: (1) Acute kidney injury (2) Dehydration (3) Hypokalemia Assessment (1) Acute renal failure resolving (2) Dehydration resolving (3) Hypokalemia resolving (4) h/o Abdominal pain (5) History of nephrectomy (6) H/O splenectomy Plan Plan: D%NS with K 200 cc hour until TPN starts Urine studies Monitor renal parameters Per orders Subjective ROS Limited/Unobtainable: No Constitutional: Reports: malaise Objective Objective Last 24 Hour Vital Signs Date Time Temp Pulse Resp B/P (MAP) Pulse Ox O2 Delivery O2 Flow Rate FiO2 01/02/18 08:00 98.6 76 20 115/79 97 98.6 01/02/18 04:00 98.4 71 18 108/73 97 98.4 01/02/18 00:00 97.9 64 20 111/69 98 97.9 01/01/18 20:00 97.5 70 20 118/77 100 97.5 01/01/18 15:50 98.3 68 22 133/74 99 Room Air 98.3 Intake and Output 01/01/18 01/02/18 19:00 07:00 Intake Total 2240 ml 1740 ml Output Total 1075 ml Balance 1165 ml 1740 ml Intake Oral 1600 ml 400 ml IV Total 640 ml 1340 ml Output Urine Total 1075 ml Laboratory Tests 01/01/18 16:00: Sodium Level 140, Potassium Level 4.6, Chloride Level 107, Carbon Dioxide Level 27, Anion Gap 6, Blood Urea Nitrogen 25H, Creatinine 1.0, Estimat Glomerular Filtration Rate > 60, Glucose Level 65L, Calcium Level 9.3 01/02/18 09:00: Sodium Level 137, Potassium Level 3.9, Chloride Level 104, Carbon Dioxide Level 24, Anion Gap 10, Blood Urea Nitrogen 33H, Creatinine 1.1, Estimat Glomerular Filtration Rate > 60, Glucose Level 75, Calcium Level 9.0, Phosphorus Level 4.2 , Magnesium Level 1.7L, Total Bilirubin 0.4, Aspartate Amino Transf (AST/SGOT) 20, Alanine Aminotransferase (ALT/SGPT) 16, Alkaline Phosphatase 227H, Total Protein 8.0, Albumin 3.3L, Globulin 4.7, Albumin/Globulin Ratio 0.7L Height (Feet): 5 Height (Inches): 5.00 Weight (Pounds): 105 General Appearance: no apparent distress Objective no change LANDEN CEBALLOS Jan 02, 2018 12:42
[2018-01-02] MEDS ORDERED: Cathflo Alteplase 2mg Inj INJ ONE ×2 (14:30→14:45)
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
[2018-01-02 16:00] VITALS: BP 128/90
[2018-01-02 20:00] VITALS: BP 122/82
[2018-01-02] MEDS: Dyna-Hex 2% Top Sol 2oz TOPIC SCH (20:31)
[2018-01-02] MEDS: TPN IV SCH (20:40)
[2018-01-02] MEDS: FAT EMULSION 20% IV SCH (20:40)
[2018-01-03] VITALS: BP 133/69
[2018-01-03 04:00] VITALS: BP 122/86
[2018-01-03] MEDS: DiphenhydrAMINE 50mg/ml Inj IVP PRN ×4 (04:05→22:38)
[2018-01-03 07:11] LABS: BASOPHILS % (AUTO) 1.3 % (0.0-2.0); EOSINOPHILS % (AUTO) 2.8 % (0.0-3.0); HEMATOCRIT 30.5 % (42.0-52.0); HEMOGLOBIN 10.2 G/DL (14.2-18.0); LYMPHOCYTES % (AUTO) 22.1 % (20.0-45.0); MEAN CORPUSCULAR VOLUME 103 FL (80-99); MONOCYTES % (AUTO) 13.4 % (1.0-10.0); NEUTROPHILS % (AUTO) 60.4 % (45.0-75.0); PLATELET COUNT 302 K/UL (150-450); RED BLOOD COUNT 2.98 M/UL (4.70-6.10); RED CELL DISTRIBUTION WIDTH 14.1 % (11.6-14.8); WHITE BLOOD COUNT 7.2 K/UL (4.8-10.8)
[2018-01-03 07:22] LABS: ANION GAP 12 mmol/L (5-15); BLOOD UREA NITROGEN 40 mg/dL (7-18); CALCIUM 8.9 MG/DL (8.5-10.1); CARBON DIOXIDE 21 MMOL/L (21-32); CHLORIDE 102 MMOL/L (98-107); PHOSPHORUS 3.9 MG/DL (2.5-4.9); POTASSIUM 3.8 MMOL/L (3.5-5.1); SODIUM 135 MMOL/L (136-145)
[2018-01-03 08:00] VITALS: BP 110/68
[2018-01-03] MEDS: Heparin 5000 units/ml inj SUBQ SCH ×2 (09:00→21:00)
[2018-01-03] MEDS: Pantoprazole Inj IVP SCH (09:15)
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
[2018-01-03] MEDS: Magnesium Sulfate 1gm/100ml IVPB SCH ×2 (12:30→14:06)
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
[2018-01-03 16:00] VITALS: BP 136/94
--- NOTE | 2018-01-03 17:13 | Nephrology Progress Note ---
Assessment/Plan Problem List: (1) Acute kidney injury (2) Dehydration (3) Hypokalemia Assessment (1) Acute renal failure resolving (2) Dehydration resolving (3) Hypokalemia resolving (4) h/o Abdominal pain (5) History of nephrectomy (6) H/O splenectomy Plan Plan: D%NS with K 200 cc hour until TPN starts Urine studies Monitor renal parameters Per orders Subjective ROS Limited/Unobtainable: No Constitutional: Reports: malaise Objective Objective Last 24 Hour Vital Signs Date Time Temp Pulse Resp B/P (MAP) Pulse Ox O2 Delivery O2 Flow Rate FiO2 01/03/18 16:00 98.2 80 20 136/94 97 Room Air 98.2 01/03/18 08:00 97.6 64 20 110/68 99 97.6 01/03/18 04:00 98.1 81 20 122/86 98 98.1 01/03/18 00:00 97.9 66 18 133/69 99 Room Air 97.9 01/02/18 20:00 98.0 75 18 122/82 97 Room Air 98.0 Intake and Output 01/02/18 01/03/18 19:00 07:00 Intake Total 1405 ml 1590 ml Output Total 1100 ml 2000 ml Balance 305 ml -410 ml Intake Oral 800 ml 240 ml IV Total 605 ml 1350 ml Stool Total 1100 ml 2000 ml # Voids 3 Laboratory Tests 01/03/18 05:40: White Blood Count 7.2, Red Blood Count 2.98L, Hemoglobin 10.2L, Hematocrit 30.5L , Mean Corpuscular Volume 103H, Mean Corpuscular Hemoglobin 34.2H, Mean Corpuscular Hemoglobin Concent 33.3, Red Cell Distribution Width 14.1, Platelet Count 302, Mean Platelet Volume 7.3, Neutrophils (%) (Auto) 60.4, Lymphocytes (% ) (Auto) 22.1, Monocytes (%) (Auto) 13.4H, Eosinophils (%) (Auto) 2.8, Basophils (%) (Auto) 1.3, Sodium Level 135L, Potassium Level 3.8, Chloride Level 102, Carbon Dioxide Level 21, Anion Gap 12, Blood Urea Nitrogen 40H, Creatinine 1.0, Estimat Glomerular Filtration Rate > 60, Glucose Level 37*L, Calcium Level 8.9, Phosphorus Level 3.9, Magnesium Level 1.7L 01/03/18 08:25: Glucose Level 115H Height (Feet): 5 Height (Inches): 5.00 Weight (Pounds): 105 General Appearance: no apparent distress Objective no change LANDEN CEBALLOS 1, 2018 17:13
[2018-01-03 20:00] VITALS: BP 122/89
[2018-01-03] MEDS: Dyna-Hex 2% Top Sol 2oz TOPIC SCH (20:00)
[2018-01-03] MEDS: FAT EMULSION 20% IV SCH (21:34)
[2018-01-03] MEDS: TPN IV SCH (21:34)
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
[2018-01-04] VITALS: BP 119/88
[2018-01-04 04:00] VITALS: BP 127/72
[2018-01-04] MEDS: DiphenhydrAMINE 50mg/ml Inj IVP PRN ×4 (04:34→23:07)
[2018-01-04 08:00] VITALS: BP 123/63
[2018-01-04 08:13] LABS: ANION GAP 11 mmol/L (5-15); BLOOD UREA NITROGEN 49 mg/dL (7-18); CALCIUM 9.4 MG/DL (8.5-10.1); CARBON DIOXIDE 22 MMOL/L (21-32); CHLORIDE 101 MMOL/L (98-107); CREATININE 1.2 MG/DL (0.55-1.30); PHOSPHORUS 4.8 MG/DL (2.5-4.9); POTASSIUM 3.9 MMOL/L (3.5-5.1); SODIUM 134 MMOL/L (136-145)
[2018-01-04] MEDS: Heparin 5000 units/ml inj SUBQ SCH ×2 (09:00→21:00)
[2018-01-04] MEDS: Pantoprazole Inj IVP SCH (09:36)
[2018-01-04 12:00] VITALS: BP 128/88
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
[2018-01-04 16:00] VITALS: BP 108/81
--- NOTE | 2018-01-04 16:31 | Nephrology Progress Note ---
Assessment/Plan Problem List: (1) Acute kidney injury (2) Dehydration (3) Hypokalemia Assessment (1) Acute renal failure resolving (2) Dehydration resolving (3) Hypokalemia resolving (4) h/o Abdominal pain (5) History of nephrectomy (6) H/O splenectomy Plan Plan: TPN Urine studies Monitor renal parameters Per orders DC planning Subjective ROS Limited/Unobtainable: No Constitutional: Reports: malaise Objective Objective Last 24 Hour Vital Signs Date Time Temp Pulse Resp B/P (MAP) Pulse Ox O2 Delivery O2 Flow Rate FiO2 01/04/18 12:00 97.8 78 18 128/88 100 Room Air 97.8 01/04/18 08:00 97.4 71 18 123/63 100 Room Air 97.4 01/04/18 04:00 97.5 18 127/72 99 Room Air 97.5 01/04/18 00:00 98.2 86 18 119/88 97 Room Air 98.2 01/04/18 00:00 Room Air 01/03/18 20:00 Room Air 01/03/18 20:00 97.7 83 18 122/89 100 Room Air 97.7 Intake and Output 01/03/18 01/04/18 19:00 07:00 Intake Total 2000 ml 2850 ml Output Total 2000 ml Balance 2000 ml 850 ml Intake Oral 2000 ml 1500 ml IV Total 1350 ml Stool Total 2000 ml # Voids 8 5 Laboratory Tests 01/04/18 07:00: Sodium Level 134L, Potassium Level 3.9, Chloride Level 101, Carbon Dioxide Level 22, Anion Gap 11, Blood Urea Nitrogen 49H, Creatinine 1.2, Estimat Glomerular Filtration Rate > 60, Glucose Level 52L, Calcium Level 9.4, Phosphorus Level 4.8, Magnesium Level 2.4 Height (Feet): 5 Height (Inches): 5.00 Weight (Pounds): 105 General Appearance: no apparent distress Objective no change LANDEN CEBALLOS Jan 04, 2018 16:31
[2018-01-04 20:00] VITALS: BP 103/78
[2018-01-04] MEDS: Dyna-Hex 2% Top Sol 2oz TOPIC SCH (21:08)
[2018-01-04] MEDS: TPN IV SCH (21:11)
[2018-01-04] MEDS: FAT EMULSION 20% IV SCH (21:11)
[2018-01-05] VITALS: BP 125/75
[2018-01-05 04:00] VITALS: BP 123/78
[2018-01-05] MEDS: DiphenhydrAMINE 50mg/ml Inj IVP PRN ×4 (05:18→23:44)
[2018-01-05 06:27] LABS: BASOPHILS % (AUTO) 1.2 % (0.0-2.0); EOSINOPHILS % (AUTO) 1.8 % (0.0-3.0); HEMATOCRIT 38.4 % (42.0-52.0); HEMOGLOBIN 12.5 G/DL (14.2-18.0); LYMPHOCYTES % (AUTO) 45.2 % (20.0-45.0); MEAN CORPUSCULAR VOLUME 102 FL (80-99); MONOCYTES % (AUTO) 13.4 % (1.0-10.0); NEUTROPHILS % (AUTO) 38.5 % (45.0-75.0); PLATELET COUNT 350 K/UL (150-450); RED BLOOD COUNT 3.76 M/UL (4.70-6.10); RED CELL DISTRIBUTION WIDTH 13.8 % (11.6-14.8); WHITE BLOOD COUNT 9.6 K/UL (4.8-10.8)
[2018-01-05 06:38] LABS: ANION GAP 12 mmol/L (5-15); BLOOD UREA NITROGEN 62 mg/dL (7-18); CALCIUM 9.8 MG/DL (8.5-10.1); CARBON DIOXIDE 21 MMOL/L (21-32); CHLORIDE 98 MMOL/L (98-107); CREATININE 1.3 MG/DL (0.55-1.30); POTASSIUM 3.6 MMOL/L (3.5-5.1); SODIUM 131 MMOL/L (136-145)
[2018-01-05 08:00] VITALS: BP 102/81
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
[2018-01-05] MEDS: Pantoprazole Inj IVP SCH (08:44)
[2018-01-05] MEDS: Heparin 5000 units/ml inj SUBQ SCH ×2 (08:46→20:51)
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
[2018-01-05 12:00] VITALS: BP 160/86
--- NOTE | 2018-01-05 12:37 | Nephrology Progress Note ---
Assessment/Plan Problem List: (1) Acute kidney injury (2) Dehydration (3) Hypokalemia Assessment (1) Acute renal failure resolving (2) Dehydration resolving (3) Hypokalemia resolving (4) h/o Abdominal pain (5) History of nephrectomy (6) H/O splenectomy Plan Plan: 3% saline TPN Urine studies Monitor renal parameters Per orders DC planning Subjective ROS Limited/Unobtainable: No Objective Objective Last 24 Hour Vital Signs Date Time Temp Pulse Resp B/P (MAP) Pulse Ox O2 Delivery O2 Flow Rate FiO2 01/05/18 12:00 98.9 94 22 160/86 97 Room Air 98.9 01/05/18 08:00 98.2 94 22 102/81 97 Room Air 98.2 01/05/18 04:00 98.4 90 18 123/78 99 98.4 01/05/18 00:00 98.6 92 19 125/75 97 98.6 01/04/18 20:00 98.8 81 20 103/78 98 98.8 01/04/18 16:00 98.7 89 18 108/81 100 Room Air 98.7 Intake and Output 01/04/18 01/05/18 19:00 07:00 Intake Total 2434.2 ml Output Total 1200 ml Balance 1234.2 ml Intake Oral 960 ml IV Total 1474.2 ml Stool Total 1200 ml # Voids 2 Laboratory Tests 01/05/18 05:25: White Blood Count 9.6, Red Blood Count 3.76L, Hemoglobin 12.5L, Hematocrit 38.4L , Mean Corpuscular Volume 102H, Mean Corpuscular Hemoglobin 33.3H, Mean Corpuscular Hemoglobin Concent 32.6, Red Cell Distribution Width 13.8, Platelet Count 350, Mean Platelet Volume 7.2, Neutrophils (%) (Auto) 38.5L, Lymphocytes ( %) (Auto) 45.2H, Monocytes (%) (Auto) 13.4H, Eosinophils (%) (Auto) 1.8, Basophils (%) (Auto) 1.2, Sodium Level 131L, Potassium Level 3.6, Chloride Level 98, Carbon Dioxide Level 21, Anion Gap 12, Blood Urea Nitrogen 62H, Creatinine 1.3, Estimat Glomerular Filtration Rate > 60, Glucose Level 67L, Calcium Level 9.8 Height (Feet): 5 Height (Inches): 5.00 Weight (Pounds): 105 General Appearance: no apparent distress Objective no change LANDEN CEBALLOS Jan 05, 2018 12:37
[2018-01-05] MEDS ORDERED: NaCl 3% 500ml 250 ML IV ONE (13:00)
[2018-01-05 16:00] VITALS: BP 106/77
[2018-01-05 19:53] VITALS: BP 113/82
[2018-01-05] MEDS: Dyna-Hex 2% Top Sol 2oz TOPIC SCH (20:50)
[2018-01-05] MEDS ORDERED: TPN IV SCH (21:00)
[2018-01-05] MEDS ORDERED: FAT EMULSION 20% IV SCH (21:00)
[2018-01-06] VITALS: BP 110/73
[2018-01-06 04:00] VITALS: BP 108/74
[2018-01-06] MEDS: DiphenhydrAMINE 50mg/ml Inj IVP PRN ×3 (05:55→17:56)
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
[2018-01-06] MEDS: Heparin 5000 units/ml inj SUBQ SCH ×2 (07:57→20:31)
[2018-01-06 08:00] VITALS: BP 122/88
[2018-01-06 08:02] LABS: ALANINE AMINOTRANSFERASE 26 U/L (12-78); ALBUMIN 3.6 G/DL (3.4-5.0); ALBUMIN/GLOBULIN RATIO 0.7 (1.0-2.7); ALKALINE PHOSPHATASE 327 U/L (46-116); ANION GAP 8 mmol/L (5-15); ASPARTATE AMINO TRANSFERASE 26 U/L (15-37); BILIRUBIN,TOTAL 0.4 MG/DL (0.2-1.0); BLOOD UREA NITROGEN 63 mg/dL (7-18); CALCIUM 9.2 MG/DL (8.5-10.1); CARBON DIOXIDE 22 MMOL/L (21-32); CHLORIDE 98 MMOL/L (98-107); CREATININE 1.2 MG/DL (0.55-1.30); POTASSIUM 3.9 MMOL/L (3.5-5.1); SODIUM 128 MMOL/L (136-145)
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
[2018-01-06] MEDS ORDERED: LORazepam Inj 2mg/ml 1ml IV PRN (09:30)
--- NOTE | 2018-01-06 12:37 | Nephrology Progress Note ---
Assessment/Plan Problem List: (1) Acute kidney injury (2) Dehydration (3) Hypokalemia Assessment (1) Acute renal failure resolving (2) Dehydration resolving (3) Hypokalemia resolving (4) h/o Abdominal pain (5) History of nephrectomy (6) H/O splenectomy Plan Plan: 3% saline for low Na TPN Urine studies Monitor renal parameters Per orders DC planning Subjective ROS Limited/Unobtainable: No Constitutional: Reports: malaise Objective Objective Last 24 Hour Vital Signs Date Time Temp Pulse Resp B/P (MAP) Pulse Ox O2 Delivery O2 Flow Rate FiO2 01/06/18 08:00 98.9 91 18 122/88 100 98.9 01/06/18 04:00 97.5 67 20 108/74 100 97.5 01/06/18 00:00 97.9 89 21 110/73 98 97.9 01/05/18 19:53 98.3 94 21 113/82 100 98.3 01/05/18 16:00 98.7 89 21 106/77 99 Room Air 98.7 Intake and Output 01/05/18 01/06/18 19:00 07:00 Intake Total 1253.8 ml 2838.0 ml Output Total 780 ml 1500 ml Balance 473.8 ml 1338.0 ml Intake Oral 1000 ml 1200 ml IV Total 253.8 ml 1638.0 ml Stool Total 780 ml 1500 ml # Voids 2 2 Laboratory Tests 01/06/18 06:05: Sodium Level 128L, Potassium Level 3.9, Chloride Level 98, Carbon Dioxide Level 22, Anion Gap 8, Blood Urea Nitrogen 63H, Creatinine 1.2, Estimat Glomerular Filtration Rate > 60, Glucose Level 87, Uric Acid 5.7, Calcium Level 9.2, Phosphorus Level 5.0H, Magnesium Level 2.5H, Total Bilirubin 0.4, Aspartate Amino Transf (AST/SGOT) 26, Alanine Aminotransferase (ALT/SGPT) 26, Alkaline Phosphatase 327H, Total Protein 8.7H, Albumin 3.6, Globulin 5.1, Albumin/ Globulin Ratio 0.7L Height (Feet): 5 Height (Inches): 5.00 Weight (Pounds): 105 General Appearance: no apparent distress Objective no change LANDEN CEBALLOS Jan 06, 2018 12:37
[2018-01-06] MEDS ORDERED: NaCl 3% 500ml 500 ML IV ONE (13:00)
[2018-01-06 16:15] VITALS: BP 136/87
[2018-01-06] MEDS ORDERED: NS 275ml ONE (17:58)
[2018-01-06] MEDS ORDERED: Tubing IV Secondary IV ONE (17:58)
[2018-01-06 20:00] VITALS: BP 115/74
[2018-01-06] MEDS: Dyna-Hex 2% Top Sol 2oz TOPIC SCH (20:00)
[2018-01-06] MEDS: TPN IV SCH (20:24)
[2018-01-06] MEDS: FAT EMULSION 20% IV SCH (20:24)
[2018-01-07] VITALS: BP 106/67
[2018-01-07] MEDS: DiphenhydrAMINE 50mg/ml Inj IVP PRN ×4 (00:08→18:53)
[2018-01-07 03:59] VITALS: BP 107/77
[2018-01-07 05:19] LABS: BASOPHILS % (AUTO) 1.3 % (0.0-2.0); EOSINOPHILS % (AUTO) 0.7 % (0.0-3.0); HEMATOCRIT 32.2 % (42.0-52.0); HEMOGLOBIN 10.9 G/DL (14.2-18.0); LYMPHOCYTES % (AUTO) 32.9 % (20.0-45.0); MEAN CORPUSCULAR VOLUME 100 FL (80-99); MONOCYTES % (AUTO) 19.6 % (1.0-10.0); NEUTROPHILS % (AUTO) 45.5 % (45.0-75.0); PLATELET COUNT 314 K/UL (150-450); RED BLOOD COUNT 3.21 M/UL (4.70-6.10); RED CELL DISTRIBUTION WIDTH 13.5 % (11.6-14.8); WHITE BLOOD COUNT 5.1 K/UL (4.8-10.8)
[2018-01-07 05:34] LABS: ANION GAP 6 mmol/L (5-15); BLOOD UREA NITROGEN 60 mg/dL (7-18); CARBON DIOXIDE 34 MMOL/L (21-32); CHLORIDE 101 MMOL/L (98-107); CREATININE 1.1 MG/DL (0.55-1.30); SODIUM 141 MMOL/L (136-145)
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
[2018-01-07 08:00] VITALS: BP 112/78
[2018-01-07] MEDS: Heparin 5000 units/ml inj SUBQ SCH ×2 (09:00→20:49)
[2018-01-07] MEDS ORDERED: Tubing IV Secondary IV ONE (09:54)
[2018-01-07 12:00] VITALS: BP 103/67
[2018-01-07] MEDS ORDERED: Potassium Chloride 40 MEQ in Sodium Chloride 500ML 550 ML IVPB ONE (12:00)
--- NOTE | 2018-01-07 13:03 | Nephrology Progress Note ---
Assessment/Plan Problem List: (1) Acute kidney injury (2) Dehydration (3) Hypokalemia Assessment (1) Acute renal failure resolving (2) Dehydration resolving (3) Hypokalemia resolving (4) h/o Abdominal pain (5) History of nephrectomy (6) H/O splenectomy Plan Plan: Na normalized- K supplement today TPN Urine studies Monitor renal parameters Per orders DC planning Subjective ROS Limited/Unobtainable: No Objective Objective Last 24 Hour Vital Signs Date Time Temp Pulse Resp B/P (MAP) Pulse Ox O2 Delivery O2 Flow Rate FiO2 01/07/18 12:12 98.1 01/07/18 08:38 98.1 01/07/18 08:08 98.1 01/07/18 08:00 97.6 75 20 112/78 99 Room Air 97.6 01/07/18 03:59 98.1 81 17 107/77 100 Room Air 98.1 01/07/18 00:00 97.3 79 18 106/67 100 Room Air 97.3 01/06/18 20:00 97.7 90 20 115/74 97 Room Air 97.7 01/06/18 16:15 98.4 89 18 136/87 100 Room Air 98.4 Intake and Output 01/06/18 01/07/18 19:00 07:00 Intake Total 30 ml 2845 ml Output Total 1350 ml Balance 30 ml 1495 ml Intake Oral 1200 ml IV Total 30 ml 1645 ml Stool Total 1350 ml # Voids 5 2 Laboratory Tests 01/07/18 05:05: White Blood Count 5.1, Red Blood Count 3.21L, Hemoglobin 10.9L, Hematocrit 32.2L , Mean Corpuscular Volume 100H, Mean Corpuscular Hemoglobin 34.1H, Mean Corpuscular Hemoglobin Concent 34.0, Red Cell Distribution Width 13.5, Platelet Count 314, Mean Platelet Volume 7.1, Neutrophils (%) (Auto) 45.5, Lymphocytes (% ) (Auto) 32.9, Monocytes (%) (Auto) 19.6H, Eosinophils (%) (Auto) 0.7, Basophils (%) (Auto) 1.3, Sodium Level 141#, Potassium Level 3.0L, Chloride Level 101, Carbon Dioxide Level 34H, Anion Gap 6, Blood Urea Nitrogen 60H, Creatinine 1.1, Estimat Glomerular Filtration Rate > 60, Glucose Level 64L, Calcium Level 9.0 Height (Feet): 5 Height (Inches): 5.00 Weight (Pounds): 105 General Appearance: no apparent distress Objective no change LANDEN CEBALLOS 5, 2018 13:03
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
[2018-01-07 16:00] VITALS: BP 112/73
[2018-01-07 20:00] VITALS: BP 146/79
[2018-01-07] MEDS: Dyna-Hex 2% Top Sol 2oz TOPIC SCH (20:00)
[2018-01-07] MEDS: TPN IV SCH (20:49)
[2018-01-07] MEDS: FAT EMULSION 20% IV SCH (20:49)
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
[2018-01-08] VITALS: BP 116/68
[2018-01-08] MEDS: DiphenhydrAMINE 50mg/ml Inj IVP PRN ×3 (01:08→13:04)
[2018-01-08 04:00] VITALS: BP 105/70
[2018-01-08 06:09] LABS: HEMATOCRIT 29.7 % (42.0-52.0); HEMOGLOBIN 9.8 G/DL (14.2-18.0); MEAN CORPUSCULAR VOLUME 102 FL (80-99); PLATELET COUNT 251 K/UL (150-450); RED CELL DISTRIBUTION WIDTH 13.6 % (11.6-14.8); WHITE BLOOD COUNT 6.1 K/UL (4.8-10.8)
[2018-01-08 06:17] LABS: ANION GAP 0 mmol/L (5-15); BLOOD UREA NITROGEN 46 mg/dL (7-18); CHLORIDE 98 MMOL/L (98-107); CREATININE 0.9 MG/DL (0.55-1.30); PHOSPHORUS 3.2 MG/DL (2.5-4.9); SODIUM 144 MMOL/L (136-145)
[2018-01-08 06:20] LABS: POTASSIUM 2.7 MMOL/L (3.5-5.1)
[2018-01-08 06:21] LABS: CARBON DIOXIDE 45 MMOL/L (21-32)
[2018-01-08 08:00] VITALS: BP 94/65
[2018-01-08] MEDS: Heparin 5000 units/ml inj SUBQ SCH (08:04)
[2018-01-08] MEDS ORDERED: Potassium Chloride 40 MEQ in Sodium Chloride 500ML 550 ML IVPB ONE (10:00)
[2018-01-08] MEDS ORDERED: TPN IV SCH ×2 (11:30→21:00)
[2018-01-08] MEDS ORDERED: FAT EMULSION 20% IV SCH ×2 (11:30→21:00)
[2018-01-08] MEDS ORDERED: LORazepam Inj 2mg/ml 1ml IM PRN (11:45)
[2018-01-08 12:00] VITALS: BP 126/88
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
[2018-01-08] MEDS ORDERED: Heparin 2000 units/Ns 1000ml INJ ONE (13:00)
[2018-01-08] MEDS ORDERED: LORazepam Inj 2mg/ml 1ml IV SCH (13:00)
[2018-01-08] MEDS ORDERED: Lidocaine 1% MPF 10mg/ml 5ml INJ ONE (13:15)
--- NOTE | 2018-01-08 15:12 | Diagnostic Imaging Report ---
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 The right upper extremity was prepped with alcohol. All elements of maximal sterile barrier technique were followed including usage of a cap, mask, sterile gown, sterile gloves, hand hygiene and a large sterile sheet. Sonographic evaluation of the upper extremity was performed demonstrating a patent and compressible brachial vein. Access was obtained under real-time ultrasound guidance (with utilization of sterile gel and sterile probe cover) and digital image was saved and archived. An .018 wire was introduced. Needle exchanged for a 5 [place] peel-away sheath. Measurements were obtained. A 5 [place] dual-lumen Power PICC line catheter was cut to 40 cm and introduced over the wire. Peel-away sheath and wire were removed.Catheter was secured to the skin using 2-0 Prolene suture. Both ports aspirate and flush easily. Fluoroscopic images show distal tip in the superior vena cava. Total fluoroscopic time 0.4 minutes Impression: Successful placement of an upper extremity PICC line catheter
--- NOTE | 2018-01-08 15:17 | Nephrology Progress Note ---
Assessment/Plan Problem List: (1) Acute kidney injury (2) Dehydration (3) Hypokalemia Assessment (1) Acute renal failure resolving (2) Dehydration resolving (3) Hypokalemia resolving (4) h/o Abdominal pain (5) History of nephrectomy (6) H/O splenectomy Plan Plan: Na normalized- K supplement today TPN Urine studies Monitor renal parameters Per orders DC planning Subjective ROS Limited/Unobtainable: No Objective Objective Last 24 Hour Vital Signs Date Time Temp Pulse Resp B/P (MAP) Pulse Ox O2 Delivery O2 Flow Rate FiO2 01/08/18 13:04 98.7 01/08/18 12:00 99.3 98 20 126/88 96 Room Air 99.3 01/08/18 10:32 98.7 01/08/18 10:02 98.7 01/08/18 08:00 98.7 78 20 94/65 97 Room Air 98.7 01/08/18 04:00 97.5 73 21 105/70 100 97.5 01/08/18 00:00 97.8 78 21 116/68 96 97.8 01/08/18 00:00 Room Air 01/07/18 20:00 97.1 70 21 146/79 100 97.1 01/07/18 20:00 Room Air 01/07/18 18:53 98.2 01/07/18 16:00 98.2 77 20 112/73 100 98.2 Intake and Output 01/07/18 01/08/18 19:00 07:00 Intake Total 3150.0 ml 1195 ml Output Total 3000 ml 800 ml Balance 150.0 ml 395 ml Intake Oral 1960 ml IV Total 1190.0 ml 1195 ml Output Urine Total 800 ml Stool Total 3000 ml Laboratory Tests 01/08/18 05:55: White Blood Count 6.1, Red Blood Count 2.90L, Hemoglobin 9.8L, Hematocrit 29.7L , Mean Corpuscular Volume 102H, Mean Corpuscular Hemoglobin 33.8H, Mean Corpuscular Hemoglobin Concent 33.1, Red Cell Distribution Width 13.6, Platelet Count 251, Mean Platelet Volume 6.9, Neutrophils (%) (Auto) , Lymphocytes (%) ( Auto) , Monocytes (%) (Auto) , Eosinophils (%) (Auto) , Basophils (%) (Auto) , Sodium Level 144, Potassium Level 2.7*L, Chloride Level 98, Carbon Dioxide Level 45*H, Anion Gap 0L, Blood Urea Nitrogen 46H, Creatinine 0.9, Estimat Glomerular Filtration Rate > 60, Glucose Level 44L, Calcium Level 9.0, Phosphorus Level 3.2, Magnesium Level 1.5L Height (Feet): 5 Height (Inches): 5.00 Weight (Pounds): 105 General Appearance: no apparent distress Objective no change LANDEN CEBALLOS 6, 2018 15:17
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
--- NOTE | 2018-01-08 17:58 | General Progress Note ---
Assessment/Plan Status: stable Assessment/Plan mdd insomnia anxiety remeron 15mg qhs ativan prn script in chart Subjective Date patient seen: Jan 08, 2018 Neurologic/Psychiatric: Reports: anxiety, depressed, emotional problems Allergies: Coded Allergies: MEPERIDINE (Verified Allergy, Severe, 12/25/17) AMPHOTERICIN B (Verified Allergy, Intermediate, 12/25/17) VORICONAZOLE (Verified Allergy, Intermediate, 12/25/17) MORPHINE (Verified Allergy, Unknown, 12/25/17) Uncoded Allergies: CHAVA (Adverse Reaction, Unknown, 12/25/17) Subjective insomnia, depressed remeron [place] tab not on formulary Objective Last 24 Hour Vital Signs Date Time Temp Pulse Resp B/P (MAP) Pulse Ox O2 Delivery O2 Flow Rate FiO2 01/08/18 16:34 98.7 01/08/18 16:04 98.7 01/08/18 13:04 98.7 01/08/18 12:00 99.3 98 20 126/88 96 Room Air 99.3 01/08/18 10:32 98.7 01/08/18 10:02 98.7 01/08/18 08:00 98.7 78 20 94/65 97 Room Air 98.7 01/08/18 04:00 97.5 73 21 105/70 100 97.5 01/08/18 00:00 97.8 78 21 116/68 96 97.8 01/08/18 00:00 Room Air 01/07/18 20:00 97.1 70 21 146/79 100 97.1 01/07/18 20:00 Room Air 01/07/18 18:53 98.2 Intake and Output 01/07/18 01/08/18 19:00 07:00 Intake Total 3150.0 ml 1195 ml Output Total 3000 ml 800 ml Balance 150.0 ml 395 ml Intake Oral 1960 ml IV Total 1190.0 ml 1195 ml Output Urine Total 800 ml Stool Total 3000 ml Laboratory Tests 01/08/18 05:55: White Blood Count 6.1, Red Blood Count 2.90L, Hemoglobin 9.8L, Hematocrit 29.7L , Mean Corpuscular Volume 102H, Mean Corpuscular Hemoglobin 33.8H, Mean Corpuscular Hemoglobin Concent 33.1, Red Cell Distribution Width 13.6, Platelet Count 251, Mean Platelet Volume 6.9, Neutrophils (%) (Auto) , Lymphocytes (%) ( Auto) , Monocytes (%) (Auto) , Eosinophils (%) (Auto) , Basophils (%) (Auto) , Sodium Level 144, Potassium Level 2.7*L, Chloride Level 98, Carbon Dioxide Level 45*H, Anion Gap 0L, Blood Urea Nitrogen 46H, Creatinine 0.9, Estimat Glomerular Filtration Rate > 60, Glucose Level 44L, Calcium Level 9.0, Phosphorus Level 3.2, Magnesium Level 1.5L Height (Feet): 5 Height (Inches): 5.00 Weight (Pounds): 105 General Appearance: no apparent distress, alert Neurologic: alert, oriented x 3, depressed affect Jaqui Sofia M.D. Jan 08, 2018 17:58
[2018-01-08] MEDS ORDERED: PARoxetine 20mg tab ORAL SCH (21:00)
--- NOTE | 2018-01-10 16:30 | Discharge Summary ---
Discharge Summary Hospital Course Date of Admission Dec 29, 2017 at 19:25 Date of Discharge Jan 08, 2018 at 18:12 Admitting Diagnosis hypokalemia, short gut syndrome REINALDO Bell is a 28 year old male who was admitted on Dec 29, 2017 at 19:25 for Hypokalemia, Short Gut Syndrome Hospital Course [id number] Discharge Discharge Disposition Patient was discharged to Home with Home Health(06) Discharge Diagnoses: Tita Gordillo NP Jan 10, 2018 16:30
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
== END 2018-01-08 18:12 | disposition home health service (06) | DRG 469 ==
LOC: EMR 17:44 → 2E 19:25 → EDBEDREQ 20:36 → 4E 12-30 16:32
PROC: B518ZZA Fluoroscopy of Superior Vena Cava, Guidance (ICD-10-PCS; principal; 2018-01-08)
PROC: 02HV33Z Insertion of Infusion Device into Superior Vena Cava, Percutaneous Approach (ICD-10-PCS; principal; 2018-01-08)
DX: N17.9 Acute kidney failure, unspecified (principal); E43 Unspecified severe protein-calorie malnutrition; K85.90 Acute pancreatitis without necrosis or infection, unspecified; K91.2 Postsurgical malabsorption, not elsewhere classified; E86.0 Dehydration; E87.6 Hypokalemia; Z90.5 Acquired absence of kidney; Z90.81 Acquired absence of spleen; Z93.1 Gastrostomy status; X95.9XXS Assault by unspecified firearm discharge, sequela; F32.9 Major depressive disorder, single episode, unspecified; F41.9 Anxiety disorder, unspecified; G47.00 Insomnia, unspecified; E87.1 Hypo-osmolality and hyponatremia; E16.2 Hypoglycemia, unspecified
CPT/HCPCS: 36415; 36569; 76700; 76937; 80048; 80053; 80061; 80307; 81001; 82150; 82607; 82728; 82746; 82947; 82962; 82977; 83540; 83550; 83690; 83735; 83880; 84100; 84300; 84550; 85007; 85025; 85651; 85730; 86140; 99285; J2405

== ENCOUNTER 2018-01-09 10:17 | Inpatient (IN) | payer MEDICAID ==
[~2018-01-09] VITALS: Ht 162.6 cm; Wt 54.0 kg
[2018-01-09] VITALS (12 sets, daily range): BP systolic 94–132; BP diastolic 38–85
[~2018-01-09 10:17] MED LIST changes: +FENTANYL1 EAC3 TDERMAL; +TPN ELECTROLYTE20 M1 IV
[2018-01-09] MEDS ORDERED: Hydromorphone 0.5mg/0.5ml inj IVP ONE (11:00)
[2018-01-09] MEDS ORDERED: Adenosine 6mg/2ml Inj ONE (11:03)
[2018-01-09] MEDS ORDERED: Adenosine 6mg/2ml Inj IVP ONE ×2 (11:15→11:30)
[2018-01-09 11:19] LABS: BASOPHILS % (AUTO) 0.7 % (0.0-2.0); EOSINOPHILS % (AUTO) 0.1 % (0.0-3.0); HEMATOCRIT 38.8 % (42.0-52.0); HEMOGLOBIN 12.7 G/DL (14.2-18.0); LYMPHOCYTES % (AUTO) 34.8 % (20.0-45.0); MEAN CORPUSCULAR VOLUME 102 FL (80-99); MONOCYTES % (AUTO) 14.7 % (1.0-10.0); NEUTROPHILS % (AUTO) 49.7 % (45.0-75.0); PLATELET COUNT 352 K/UL (150-450); RED CELL DISTRIBUTION WIDTH 13.8 % (11.6-14.8); WHITE BLOOD COUNT 10.2 K/UL (4.8-10.8)
[2018-01-09] MEDS ORDERED: LORazepam Inj 2mg/ml 1ml IV ONE (11:30)
[2018-01-09 12:06] LABS: BLOOD UREA NITROGEN 51 mg/dL (7-18); CALCIUM 9.2 MG/DL (8.5-10.1); CARBON DIOXIDE > 45 MMOL/L (21-32); CHLORIDE 76 MMOL/L (98-107); CREATININE 2.3 MG/DL (0.55-1.30); SODIUM 139 MMOL/L (136-145)
[2018-01-09] MEDS ORDERED: Acetaminophen 650 MG SUPP RECTAL ONE (12:09)
[2018-01-09 12:10] LABS: ALANINE AMINOTRANSFERASE 22 U/L (12-78); ALBUMIN 4.6 G/DL (3.4-5.0); ALBUMIN/GLOBULIN RATIO 0.8 (1.0-2.7); ALKALINE PHOSPHATASE 329 U/L (46-116); ASPARTATE AMINO TRANSFERASE 30 U/L (15-37); BILIRUBIN,TOTAL 0.7 MG/DL (0.2-1.0)
[2018-01-09] MEDS ORDERED: Vancomycin 1 GM in D5W 275 ML IVPB ONE (12:45)
[2018-01-09] MEDS ORDERED: DiphenhydrAMINE 50mg/ml Inj ONE (12:54)
[2018-01-09] MEDS ORDERED: Vancomycin 1gm inj IVPB ONE (12:54)
[2018-01-09] MEDS ORDERED: D5W 275 ML ONE (13:00)
--- NOTE | 2018-01-09 16:09 | Emergency Room Report ---
History of Present Illness General Chief Complaint: General Complaint Source: Patient, Medical Record Present Illness HPI 28-year-old presents ED for evaluation. Patient brought in by EMS from [facility] patient states he feels very dehydrated and weak. Was supposed to get TPN delivered today but did not happen. Patient presenting with diffuse body pain, nausea and vomiting. History of short gut syndrome. Was recently discharged from [facility]. Pain is 10 out of 10, throbbing, nonradiating. Denies chest pain or shortness of breath. Denies fevers or chills. No other aggravating or relieving factors. Denies any other associated symptoms Allergies: Coded Allergies: MEPERIDINE (Verified Allergy, Severe, 12/25/17) AMPHOTERICIN B (Verified Allergy, Intermediate, 12/25/17) VORICONAZOLE (Verified Allergy, Intermediate, 12/25/17) MORPHINE (Verified Allergy, Unknown, 12/25/17) Uncoded Allergies: CHAVA (Adverse Reaction, Unknown, 12/25/17) Patient History Past Medical History: asthma, other - shortgut Past Surgical History: none Pertinent Family History: none Social History: Denies: smoking, alcohol use, drug use Immunizations: UTD Reviewed Nursing Documentation: PMH: Agreed, PSxH: Agreed Nursing Documentation-PMH Past Medical History: No History, Except For Hx Cardiac Problems: Yes Hx Asthma: Yes Hx Cancer: No Hx Gastrointestinal Problems: Yes - no small and large intestine Hx Neurological Problems: Yes Hx Seizures: Yes - 12/2016 Review of Systems All Other Systems: negative except mentioned in HPI Physical Exam Vital Signs Date Time Temp Pulse Resp B/P (MAP) Pulse Ox O2 Delivery O2 Flow Rate FiO2 01/09/18 10:17 98.1 56 18 107/50 98 Room Air 98.1 01/09/18 11:00 2.0 Sp02 EP Interpretation: reviewed, normal General Appearance: moderate distress, cachetic Head: normocephalic Eyes: bilateral eye normal inspection, bilateral eye PERRL ENT: normal ENT inspection Neck: normal inspection Respiratory: chest non-tender, lungs clear, normal breath sounds, speaking full sentences Cardiovascular #1: tachycardia Gastrointestinal: normal bowel sounds, soft, non-distended, no guarding, no rebound, tenderness Rectal: deferred Genitourinary: no CVA tenderness Musculoskeletal: normal inspection Neurologic: alert, oriented x3, responsive, motor strength/tone normal, sensory intact, speech normal Psychiatric: anxious Skin: normal inspection Lymphatic: normal inspection Procedures Critical Care Time Critical Care Time i. I feel this is a highly complex case requiring extensive working including EKG/Rhythm strip, Xray/CT/US, Blood/urine lab work, repeat exams while in ED, and administration of strong opiates/narcotics for pain control, admission to hospital or close patient follow up. Total time: 30 min bedside evaluation and treatment excludes procedures (EKG). Reason for critical care: SVT Possible complications: hypotension, hypertension, VT, shock, arrhythmias, metabolic acidosis, end organ damage, respiratory failure. Interventions: Labs, IV fluids, EKG, Ativan, adenosine, pain medications Course: Patient presenting with weakness, history of short gut syndrome. Tachycardic to the 170s. Questionable SVT. Given adenosine 2 without resolution. Given Ativan, IV fluids, pain medications with tachycardia slowly resolving Consultations: nursing staff, EMS, family Performed by: Dr Mendoza Tolerated well condition = serious j. because of unstable vital signs this patient had a condition that could potentially threaten life or limb. I feel this is a critical patient who required my full attention while patient was considered critical. Total Critical Care Time excluding procedures was greater than 35 minutes Medical Decision Making Diagnostic Impression: Primary Impression: SVT (supraventricular tachycardia) Additional Impressions: Short gut syndrome Dehydration Sepsis Qualified Codes: A41.9 - Sepsis, unspecified organism ER Course Hospital Course 28-year-old male presents to the ED with weakness, tachycardic, pain. History of short gut syndrome Differential diagnoses include: Pneumonia, UTI, sepsis, dehydration, VT/ unstable angina Clinical course Patient placed on stretcher. 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 After initial history and physical, I ordered labs, IV fluids, EKG, chest x-ray, blood cultures, UA. Labs - BUN/Cr elevated, no leukocytosis, troponins negative, lactae > 15 Patient unable to provide urine at this time EKGtachycardic to 170s, questionable SVT versus sinus tachycardia Given adenosine 2 without resolution. Given IV fluids, Ativan, pain medications with tachycardia slowly resolving Has temp of 101.5, refuses Tylenol and Motrin. Ice packs provided. broad spectrum abx given Case discussed with Dr Ahmadi and they agreed to admit patient to their service for further care and support I feel this is a highly complex case requiring extensive working including EKG/ Rhythm strip, Xray/CT/US, Blood/urine lab work, repeat exams while in ED, and administration of strong opiates/narcotics for pain control, admission to hospital or close patient follow up. Diagnosis - SVT, short gut syndrome, dehydration, sepsis Patient admitted to telemetry in serious condition Labs Test 01/09/18 10:42 01/09/18 12:55 01/09/18 15:40 White Blood Count 10.2 K/UL (4.8-10.8) Red Blood Count 3.80 M/UL (4.70-6.10) Hemoglobin 12.7 G/DL (14.2-18.0) Hematocrit 38.8 % (42.0-52.0) Mean Corpuscular Volume 102 FL (80-99) Mean Corpuscular Hemoglobin 33.5 PG (27.0-31.0) Mean Corpuscular Hemoglobin Concent 32.7 G/DL (32.0-36.0) Red Cell Distribution Width 13.8 % (11.6-14.8) Platelet Count 352 K/UL (150-450) Mean Platelet Volume 6.8 FL (6.5-10.1) Neutrophils (%) (Auto) 49.7 % (45.0-75.0) Lymphocytes (%) (Auto) 34.8 % (20.0-45.0) Monocytes (%) (Auto) 14.7 % (1.0-10.0) Eosinophils (%) (Auto) 0.1 % (0.0-3.0) Basophils (%) (Auto) 0.7 % (0.0-2.0) Sodium Level 139 MMOL/L (136-145) Potassium Level 4.0 MMOL/L (3.5-5.1) Chloride Level 76 MMOL/L (98-107) Carbon Dioxide Level > 45 MMOL/L (21-32) Blood Urea Nitrogen 51 mg/dL (7-18) Creatinine 2.3 MG/DL (0.55-1.30) Estimat Glomerular Filtration Rate 34.3 mL/min (>60) Glucose Level 172 MG/DL (74-106) Calcium Level 9.2 MG/DL (8.5-10.1) Total Bilirubin 0.7 MG/DL (0.2-1.0) Aspartate Amino Transf (AST/SGOT) 30 U/L (15-37) Alanine Aminotransferase (ALT/SGPT) 22 U/L (12-78) Alkaline Phosphatase 329 U/L (46-116) Total Protein 10.5 G/DL (6.4-8.2) Albumin 4.6 G/DL (3.4-5.0) Globulin 5.9 g/dL Albumin/Globulin Ratio 0.8 (1.0-2.7) Lipase 68 U/L (73-393) Lactic Acid Level 15.80 mmol/L (0.66-2.22) EKG Diagnostic Results Rate: tachycardiac Rhythm: NSR ST Segments: no acute changes ASA given to the pt in ED: No Rhythm Strip Diag. Results EP Interpretation: yes Rhythm: NSR, no PVC's, no ectopy Last Vital Signs Date Time Temp Pulse Resp B/P (MAP) Pulse Ox O2 Delivery O2 Flow Rate FiO2 01/09/18 15:30 98.1 83 18 96/64 99 Nasal Cannula 2.0 98.1 Status: improved Disposition: ADMITTED INPATIENT Condition: Serious Referrals: NON PHYSICIAN (PCP) LORETTA MENDOZA M.D. Jan 09, 2018 16:09
[2018-01-09] MEDS: DiphenhydrAMINE 50mg/ml Inj IVP PRN (17:45)
[2018-01-09] MEDS ORDERED: Dyna-Hex 2% Top Sol 2oz TOPIC SCH (20:00)
[2018-01-10] MEDS: D5 1/2NS w/KCl 20mEq 1,000 ML IV SCH ×2 (00:03→23:25)
[2018-01-10] MEDS: DiphenhydrAMINE 50mg/ml Inj IVP PRN ×4 (00:17→18:28)
[2018-01-10 08:00] VITALS: BP 98/66
[2018-01-10 09:52] LABS: BASOPHILS % (AUTO) 0.6 % (0.0-2.0); EOSINOPHILS % (AUTO) 0.3 % (0.0-3.0); HEMATOCRIT 32.1 % (42.0-52.0); HEMOGLOBIN 10.8 G/DL (14.2-18.0); LYMPHOCYTES % (AUTO) 19.1 % (20.0-45.0); MEAN CORPUSCULAR VOLUME 102 FL (80-99); MONOCYTES % (AUTO) 13.4 % (1.0-10.0); NEUTROPHILS % (AUTO) 66.6 % (45.0-75.0); PLATELET COUNT 296 K/UL (150-450); RED BLOOD COUNT 3.16 M/UL (4.70-6.10); RED CELL DISTRIBUTION WIDTH 13.8 % (11.6-14.8); WHITE BLOOD COUNT 8.8 K/UL (4.8-10.8)
[2018-01-10 10:06] LABS: ALANINE AMINOTRANSFERASE 31 U/L (12-78); ALBUMIN 3.7 G/DL (3.4-5.0); ALBUMIN/GLOBULIN RATIO 0.8 (1.0-2.7); ALKALINE PHOSPHATASE 252 U/L (46-116); ASPARTATE AMINO TRANSFERASE 143 U/L (15-37); BILIRUBIN,TOTAL 0.7 MG/DL (0.2-1.0); BLOOD UREA NITROGEN 46 mg/dL (7-18); CALCIUM 7.7 MG/DL (8.5-10.1); CHLORIDE 81 MMOL/L (98-107); CREATININE 2.4 MG/DL (0.55-1.30); SODIUM 140 MMOL/L (136-145); TRIGLYCERIDES 111 MG/DL (30-150)
[2018-01-10 10:13] LABS: CARBON DIOXIDE > 45 MMOL/L (21-32); POTASSIUM 2.2 MMOL/L (3.5-5.1)
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
[2018-01-10 12:00] VITALS: BP 92/53
[2018-01-10] MEDS ORDERED: NovoLOG Insulin Flexpen SUBQ SCH ×2 (12:00→18:00)
[2018-01-10 16:00] VITALS: BP 114/73
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
[2018-01-10] MEDS ORDERED: Dextrose 10% 1,000 ML IV PRN ×2 (20:00→20:54)
[2018-01-10 20:24] VITALS: BP 114/80
[2018-01-10] MEDS ORDERED: D5 1/2NS w/KCl 20mEq 1,000 ML IV SCH (20:45)
[2018-01-10] MEDS ORDERED: TPN IV SCH ×6 (21:00)
[2018-01-10] MEDS ORDERED: FAT EMULSION 20% IV SCH ×6 (21:00)
[2018-01-11] VITALS (11 sets, daily range): BP systolic 93–124; BP diastolic 65–94
[2018-01-11] MEDS: DiphenhydrAMINE 50mg/ml Inj IVP PRN ×4 (00:53→20:39)
[2018-01-11] MEDS: NovoLOG Insulin Flexpen SUBQ SCH ×4 (00:55→20:48)
[2018-01-11 07:05] LABS: ALANINE AMINOTRANSFERASE 34 U/L (12-78); ALBUMIN 3.8 G/DL (3.4-5.0); ALBUMIN/GLOBULIN RATIO 0.7 (1.0-2.7); ALKALINE PHOSPHATASE 257 U/L (46-116); ASPARTATE AMINO TRANSFERASE 147 U/L (15-37); BILIRUBIN,TOTAL 0.6 MG/DL (0.2-1.0); BLOOD UREA NITROGEN 55 mg/dL (7-18); CALCIUM 7.8 MG/DL (8.5-10.1); CHLORIDE 75 MMOL/L (98-107); CREATININE 3.8 MG/DL (0.55-1.30); POTASSIUM 3.1 MMOL/L (3.5-5.1); SODIUM 138 MMOL/L (136-145)
[2018-01-11 07:12] LABS: CARBON DIOXIDE > 45 MMOL/L (21-32)
[2018-01-11 07:24] LABS: BASOPHILS % (AUTO) 0.7 % (0.0-2.0); EOSINOPHILS % (AUTO) 0.2 % (0.0-3.0); HEMATOCRIT 35.9 % (42.0-52.0); HEMOGLOBIN 11.6 G/DL (14.2-18.0); LYMPHOCYTES % (AUTO) 26.3 % (20.0-45.0); MEAN CORPUSCULAR VOLUME 103 FL (80-99); MONOCYTES % (AUTO) 15.9 % (1.0-10.0); NEUTROPHILS % (AUTO) 56.9 % (45.0-75.0); PLATELET COUNT 302 K/UL (150-450); RED CELL DISTRIBUTION WIDTH 13.4 % (11.6-14.8); WHITE BLOOD COUNT 9.5 K/UL (4.8-10.8)
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
--- NOTE | 2018-01-11 10:19 | Consultation ---
Consult Note Consult Note asked to eval for rising Cr asked to eval for acute renal failure 28-year-old presents ED for evaluation. [facility] patient states he feels very dehydrated and weak. Was supposed to get TPN delivered today but did not happen. Patient presenting with diffuse body pain, nausea and vomiting. History of short gut syndrome. Was recently discharged from [facility]. Pain is 10 out of 10, throbbing, nonradiating. Denies chest pain or shortness of breath. Denies fevers or chills. No other aggravating or relieving factors. Denies any other associated symptoms Allergies: Coded Allergies: MEPERIDINE (Verified Allergy, Severe, 12/25/17) AMPHOTERICIN B (Verified Allergy, Intermediate, 12/25/17) VORICONAZOLE (Verified Allergy, Intermediate, 12/25/17) MORPHINE (Verified Allergy, Unknown, 12/25/17) Uncoded Allergies: CHAVA (Adverse Reaction, Unknown, 12/25/17) Hx Cardiac Problems: Yes Hx Asthma: Yes Hx Gastrointestinal Problems: Yes - no small and large intestine Hx Neurological Problems: Yes Hx Seizures: Yes - 12/2016 . Assessment/Plan (1) Acute renal failure (2) Dehydration (3) Hypokalemia (4) h/o Abdominal pain (5) History of nephrectomy (6) H/O splenectomy Plan: 1/2NS with K 150 cc hour TPN down to 50 cc hour now down to pain meds Urine studies Monitor renal parameters avoid nephrotoxics Per orders LANDEN CEBALLOS Jan 11, 2018 10:19
[2018-01-11] MEDS ORDERED: TPN IV SCH ×5 (10:30→21:00)
[2018-01-11] MEDS ORDERED: FAT EMULSION 20% IV SCH ×5 (10:30→21:00)
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
[2018-01-11] MEDS: Gabapentin 300 MG/6 ML Soln ORAL SCH ×3 (10:44→20:20)
[2018-01-11] MEDS: Potassium Chloride 40 MEQ in 1/2 NS 1000ml 1,000 ML IV SCH ×3 (11:49→21:00)
[2018-01-11] MEDS ORDERED: Propofol 200mg/20ml IV ONE (13:21)
--- NOTE | 2018-01-11 16:02 | Consultation ---
Consult Note Consult Note [id number] NADER WALL M.D. Jan 11, 2018 16:01
[2018-01-11] MEDS ORDERED: cefTRIAXone 1 GM in D5W 55 ML IVPB SCH (17:00)
[2018-01-11] MEDS ORDERED: Metoprolol 25mg tab ORAL ONE (17:15)
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
[2018-01-11] MEDS ORDERED: LORazepam Inj 2mg/ml 1ml IV PRN ×2 (18:00→22:00)
[2018-01-11] MEDS ORDERED: DAPTOmycin 350 MG in NS 55 ML IV SCH (18:00)
--- NOTE | 2018-01-11 18:48 | Cardiology Progress Note ---
Assessment/Plan Assessment/Plan narrow complex tachy ? profound sinus vs svt dyspnea transient loc on arrival to icu with excellent cartoid pulse checked personally short gut syndrome s/p splenectomy s/p nephrectomy s/p bowel resection tpn dependence pain syndrome ivf , tpn, pain med, watch for withdrawal from pain meds , [id number] Objective Last 24 Hour Vital Signs Date Time Temp Pulse Resp B/P (MAP) Pulse Ox O2 Delivery O2 Flow Rate FiO2 01/11/18 16:00 99.1 99 20 117/81 93 99.1 01/11/18 13:39 98.2 01/11/18 12:06 98.2 85 20 110/75 95 98.2 01/11/18 08:19 97.9 89 20 106/79 95 97.9 01/11/18 04:00 98.4 100 19 103/71 91 Room Air 98.4 01/11/18 00:30 97.9 99 20 103/76 92 Room Air 97.9 01/10/18 20:24 98.8 118 20 114/80 91 Room Air 98.8 Intake and Output 01/10/18 01/11/18 19:00 07:00 Intake Total 950 ml Output Total 3300 ml 2350 ml Balance -2350 ml -2350 ml Intake Oral 300 ml IV Total 650 ml Output Urine Total 300 ml 1250 ml Other 3000 ml 1100 ml Laboratory Tests Test 01/11/18 06:00 White Blood Count 9.5 K/UL (4.8-10.8) Red Blood Count 3.50 M/UL (4.70-6.10) L Hemoglobin 11.6 G/DL (14.2-18.0) L Hematocrit 35.9 % (42.0-52.0) L Mean Corpuscular Volume 103 FL (80-99) H Mean Corpuscular Hemoglobin 33.2 PG (27.0-31.0) H Mean Corpuscular Hemoglobin Concent 32.4 G/DL (32.0-36.0) Red Cell Distribution Width 13.4 % (11.6-14.8) Platelet Count 302 K/UL (150-450) Mean Platelet Volume 7.5 FL (6.5-10.1) Neutrophils (%) (Auto) 56.9 % (45.0-75.0) Lymphocytes (%) (Auto) 26.3 % (20.0-45.0) Monocytes (%) (Auto) 15.9 % (1.0-10.0) H Eosinophils (%) (Auto) 0.2 % (0.0-3.0) Basophils (%) (Auto) 0.7 % (0.0-2.0) Sodium Level 138 MMOL/L (136-145) Potassium Level 3.1 MMOL/L (3.5-5.1) L Chloride Level 75 MMOL/L (98-107) L Carbon Dioxide Level > 45 MMOL/L (21-32) *H Blood Urea Nitrogen 55 mg/dL (7-18) H Creatinine 3.8 MG/DL (0.55-1.30) #H Estimat Glomerular Filtration Rate 19.2 mL/min (>60) Glucose Level 54 MG/DL (74-106) L Calcium Level 7.8 MG/DL (8.5-10.1) L Total Bilirubin 0.6 MG/DL (0.2-1.0) Aspartate Amino Transf (AST/SGOT) 147 U/L (15-37) H Alanine Aminotransferase (ALT/SGPT) 34 U/L (12-78) Alkaline Phosphatase 257 U/L (46-116) H C-Reactive Protein, Quantitative 1.9 mg/dL (0.00-0.90) H Total Protein 9.0 G/DL (6.4-8.2) H Albumin 3.8 G/DL (3.4-5.0) Globulin 5.2 g/dL Albumin/Globulin Ratio 0.7 (1.0-2.7) L Hepatitis A IgM Antibody Pending Hepatitis B Surface Antigen Pending Hepatitis B Core IgM Antibody Pending Hepatitis C Antibody Pending Microbiology Date/Time Source Procedure Growth Status 01/09/18 12:55 Blood Blood Culture - Preliminary NO GROWTH AFTER 24 HOURS Resulted 01/09/18 12:50 Blood Blood Culture - Preliminary NO GROWTH AFTER 24 HOURS Resulted 01/09/18 12:25 Rectum VRE Culture - Final Enterococcus Faecalis - Vre Complete EDDI JARA Jan 11, 2018 18:48
[2018-01-11] MEDS ORDERED: Metoprolol 5mg/5ml Inj IVP PRN ×2 (19:00→23:00)
[2018-01-11] MEDS ORDERED: Metoprolol 5mg/5ml Inj IVP ONE (19:20)
[2018-01-11] MEDS ORDERED: Dyna-Hex 2% Top Sol 2oz TOPIC SCH (20:00)
[2018-01-11] MEDS ORDERED: Dextrose 10% 1,000 ML IV PRN (21:00)
[2018-01-11] MEDS ORDERED: DiphenhydrAMINE 50mg/ml Inj IVP PRN (22:30)
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
[2018-01-12] VITALS (16 sets, daily range): BP systolic 87–123; BP diastolic 60–84
[2018-01-12] MEDS: NovoLOG Insulin Flexpen SUBQ SCH ×5 (00:02→23:29)
[2018-01-12] MEDS: Potassium Chloride 40 MEQ in 1/2 NS 1000ml 1,000 ML IV SCH (02:09)
[2018-01-12 05:21] LABS: BASOPHILS % (AUTO) 0.7 % (0.0-2.0); HEMATOCRIT 31.3 % (42.0-52.0); HEMOGLOBIN 10.6 G/DL (14.2-18.0); LYMPHOCYTES % (AUTO) 14.9 % (20.0-45.0); MEAN CORPUSCULAR VOLUME 102 FL (80-99); MONOCYTES % (AUTO) 13.4 % (1.0-10.0); PLATELET COUNT 266 K/UL (150-450); RED BLOOD COUNT 3.07 M/UL (4.70-6.10); RED CELL DISTRIBUTION WIDTH 13.7 % (11.6-14.8); WHITE BLOOD COUNT 10.7 K/UL (4.8-10.8)
[2018-01-12 05:39] LABS: % IRON SATURATION 21 % (15-50); IRON 60 ug/dL (50-175); TOTAL IRON BINDING CAPACITY 281 ug/dL (250-450)
[2018-01-12 05:47] LABS: GAMMA GLUTAMYL TRANSPEPTIDASE 352 U/L (5-85); PHOSPHORUS 8.1 MG/DL (2.5-4.9)
[2018-01-12 06:12] LABS: ALANINE AMINOTRANSFERASE 38 U/L (12-78); ALBUMIN 3.2 G/DL (3.4-5.0); ALBUMIN/GLOBULIN RATIO 0.7 (1.0-2.7); ALKALINE PHOSPHATASE 226 U/L (46-116); ASPARTATE AMINO TRANSFERASE 180 U/L (15-37); BILIRUBIN,TOTAL 0.5 MG/DL (0.2-1.0); BLOOD UREA NITROGEN 65 mg/dL (7-18); CALCIUM 7.2 MG/DL (8.5-10.1); CHLORIDE 77 MMOL/L (98-107); CREATININE 4.6 MG/DL (0.55-1.30); FERRITIN 433 NG/ML (8-388); POTASSIUM 3.5 MMOL/L (3.5-5.1); SODIUM 138 MMOL/L (136-145)
[2018-01-12 06:13] LABS: CARBON DIOXIDE > 45 MMOL/L (21-32)
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
--- NOTE | 2018-01-12 07:45 | Pulmonolgy Critical Care Note ---
Critical Care - Asmt/Plan Problems: (1) SVT (supraventricular tachycardia) (2) History of nephrectomy (3) H/O splenectomy (4) Short gut syndrome Respiratory: monitor respiratory rate, adjust FIO2 Cardiac: continue to monitor HR/BP Renal: F/U I&O, keep IV fluid Infectious Disease: check cultures Gastrointestinal: other - continue TPN Endocrine: monitor blood sugar Hematologic: monitor H/H, transfuse if hgb<8.5 Neurologic: PRN Ativan, keep patient comfortable Affect: PRN ativan Prophylaxis: Protonix Notes Reviewed: cardio, renal Discussed with: nurses, consultants, assistant case managercommodities manager - Objective Last 24 Hour Vital Signs Date Time Temp Pulse Resp B/P (MAP) Pulse Ox O2 Delivery O2 Flow Rate FiO2 01/12/18 07:01 Room Air 21 01/12/18 07:01 100 Room Air 21 01/12/18 07:00 81 16 91/74 97 Room Air 01/12/18 06:00 83 16 93/66 97 Room Air 01/12/18 05:00 82 16 100/62 97 Venturi Mask 50 01/12/18 04:00 98.0 87 15 88/62 97 Venturi Mask 50 98.0 01/12/18 03:00 87 15 103/76 94 Venturi Mask 50 01/12/18 02:00 90 17 100/68 99 Venturi Mask 50 01/12/18 01:00 88 15 108/68 99 Venturi Mask 50 01/12/18 00:00 98.2 86 17 92/67 94 Venturi Mask 50 98.2 01/11/18 23:00 83 17 94/65 100 Venturi Mask 50 01/11/18 22:00 83 17 101/72 100 Venturi Mask 50 01/11/18 21:00 88 20 93/65 100 Non-Rebreather 100 01/11/18 20:20 117 106/70 01/11/18 20:00 98.0 90 94/65 100 Non-Rebreather 100 98.0 01/11/18 19:35 Venturi Mask 12.0 50 01/11/18 19:35 100 Venturi Mask 12.0 50 01/11/18 19:00 124 116/80 100 Non-Rebreather 01/11/18 18:30 96.6 136 124/94 100 Non-Rebreather 96.6 01/11/18 16:00 99.1 99 20 117/81 93 99.1 01/11/18 13:39 98.2 01/11/18 12:06 98.2 85 20 110/75 95 98.2 01/11/18 08:19 97.9 89 20 106/79 95 97.9 Status: awake HEENT: atraumatic Neck: full ROM Heart: HR/BP stable Abdomen: soft, active bowel sounds, feeding tube Extremities: edema Decubiti: location Micro: Microbiology Date/Time Source Procedure Growth Status 01/09/18 12:55 Blood Blood Culture - Preliminary NO GROWTH AFTER 48 HOURS Resulted 01/09/18 12:50 Blood Blood Culture - Preliminary NO GROWTH AFTER 48 HOURS Resulted 01/11/18 21:20 Nasopharynx Influenza Types A,B Antigen (GIL) - Final Complete 01/10/18 04:00 Nasal Nares MRSA Culture - Final NO METHICILLIN RESISTANT STAPH AUREUS... Complete 01/09/18 12:25 Rectum VRE Culture - Final Enterococcus Faecalis - Vre Complete Accucheck: 129 Critical Care - Subjective ROS Limited/Unobtainable: No ICU Day: 2 Condition: critical EKG Rhythm: Sinus Rhythm FI02: 21 I&O: Intake and Output 01/11/18 01/12/18 19:00 07:00 Intake Total 2180 ml 2520 ml Output Total 1025 ml 1350 ml Balance 1155 ml 1170 ml Intake Oral 1130 ml 120 ml IV Total 1050 ml 2400 ml Output Urine Total 450 ml Gastric Drainage Total 1025 ml 900 ml # Voids 3 Labs: Laboratory Tests Test 01/12/18 04:25 White Blood Count 10.7 K/UL (4.8-10.8) Red Blood Count 3.07 M/UL (4.70-6.10) L Hemoglobin 10.6 G/DL (14.2-18.0) L Hematocrit 31.3 % (42.0-52.0) L Mean Corpuscular Volume 102 FL (80-99) H Mean Corpuscular Hemoglobin 34.4 PG (27.0-31.0) H Mean Corpuscular Hemoglobin Concent 33.7 G/DL (32.0-36.0) Red Cell Distribution Width 13.7 % (11.6-14.8) Platelet Count 266 K/UL (150-450) Mean Platelet Volume 7.7 FL (6.5-10.1) Neutrophils (%) (Auto) 71.0 % (45.0-75.0) Lymphocytes (%) (Auto) 14.9 % (20.0-45.0) L Monocytes (%) (Auto) 13.4 % (1.0-10.0) H Eosinophils (%) (Auto) 0.0 % (0.0-3.0) Basophils (%) (Auto) 0.7 % (0.0-2.0) Sodium Level 138 MMOL/L (136-145) Potassium Level 3.5 MMOL/L (3.5-5.1) Chloride Level 77 MMOL/L (98-107) L Carbon Dioxide Level > 45 MMOL/L (21-32) *H Blood Urea Nitrogen 65 mg/dL (7-18) H Creatinine 4.6 MG/DL (0.55-1.30) H Estimat Glomerular Filtration Rate 15.4 mL/min (>60) Glucose Level 118 MG/DL (74-106) H Uric Acid 15.1 MG/DL (2.6-7.2) H Calcium Level 7.2 MG/DL (8.5-10.1) L Phosphorus Level 8.1 MG/DL (2.5-4.9) H Magnesium Level 1.7 MG/DL (1.8-2.4) L Iron Level 60 ug/dL (50-175) Total Iron Binding Capacity 281 ug/dL (250-450) Percent Iron Saturation 21 % (15-50) Unsaturated Iron Binding 221 ug/dL (112-346) Ferritin 433 NG/ML (8-388) H Total Bilirubin 0.5 MG/DL (0.2-1.0) Gamma Glutamyl Transpeptidase 352 U/L (5-85) H Aspartate Amino Transf (AST/SGOT) 180 U/L (15-37) H Alanine Aminotransferase (ALT/SGPT) 38 U/L (12-78) Alkaline Phosphatase 226 U/L (46-116) H Troponin I 0.027 ng/mL (0.000-0.056) Pro-B-Type Natriuretic Peptide 231 pg/mL (0-125) H Total Protein 8.0 G/DL (6.4-8.2) Albumin 3.2 G/DL (3.4-5.0) L Globulin 4.8 g/dL Albumin/Globulin Ratio 0.7 (1.0-2.7) L Vitamin B12 Level 1289 PG/ML (193-986) H Folate 50.1 NG/ML (8.6-58.9) Cortisol AM Sample Pending CHANDRAKANT VARGAS Jan 12, 2018 07:45
--- NOTE | 2018-01-12 08:31 | Nephrology Progress Note ---
Assessment/Plan Problem List: (1) Acute renal failure (ARF) Assessment (1) Acute renal failure (2) Dehydration (3) Hypokalemia (4) h/o Abdominal pain (5) History of nephrectomy (6) H/O splenectomy Plan Plan: D5NS 200 cc hour TPN hold Frost down to pain meds Urine studies Monitor renal parameters avoid nephrotoxics Per orders Subjective ROS Limited/Unobtainable: No Interval Events/Complaints in icu Constitutional: Reports: malaise Objective Objective Last 24 Hour Vital Signs Date Time Temp Pulse Resp B/P (MAP) Pulse Ox O2 Delivery O2 Flow Rate FiO2 01/12/18 08:25 97.6 01/12/18 07:01 Room Air 21 01/12/18 07:01 100 Room Air 21 01/12/18 07:00 81 16 91/74 97 Room Air 01/12/18 06:00 83 16 93/66 97 Room Air 01/12/18 05:00 82 16 100/62 97 Venturi Mask 50 01/12/18 04:00 98.0 87 15 88/62 97 Venturi Mask 50 98.0 01/12/18 03:00 87 15 103/76 94 Venturi Mask 50 01/12/18 02:00 90 17 100/68 99 Venturi Mask 50 01/12/18 01:00 88 15 108/68 99 Venturi Mask 50 01/12/18 00:00 98.2 86 17 92/67 94 Venturi Mask 50 98.2 01/11/18 23:00 83 17 94/65 100 Venturi Mask 50 01/11/18 22:00 83 17 101/72 100 Venturi Mask 50 01/11/18 21:00 88 20 93/65 100 Non-Rebreather 100 01/11/18 20:20 117 106/70 01/11/18 20:00 98.0 90 94/65 100 Non-Rebreather 100 98.0 01/11/18 19:35 Venturi Mask 12.0 50 01/11/18 19:35 100 Venturi Mask 12.0 50 01/11/18 19:00 124 116/80 100 Non-Rebreather 01/11/18 18:30 96.6 136 124/94 100 Non-Rebreather 96.6 01/11/18 16:00 99.1 99 20 117/81 93 99.1 01/11/18 13:39 98.2 01/11/18 12:06 98.2 85 20 110/75 95 98.2 Intake and Output 01/11/18 01/12/18 18:59 06:59 Intake Total 2180 ml 2320 ml Output Total 1025 ml 1350 ml Balance 1155 ml 970 ml Intake Oral 1130 ml 120 ml IV Total 1050 ml 2200 ml Output Urine Total 450 ml Gastric Drainage Total 1025 ml 900 ml # Voids 3 Laboratory Tests 01/12/18 04:25: White Blood Count 10.7, Red Blood Count 3.07L, Hemoglobin 10.6L, Hematocrit 31.3L, Mean Corpuscular Volume 102H, Mean Corpuscular Hemoglobin 34.4H, Mean Corpuscular Hemoglobin Concent 33.7, Red Cell Distribution Width 13.7, Platelet Count 266, Mean Platelet Volume 7.7, Neutrophils (%) (Auto) 71.0, Lymphocytes (% ) (Auto) 14.9L, Monocytes (%) (Auto) 13.4H, Eosinophils (%) (Auto) 0.0, Basophils (%) (Auto) 0.7, Sodium Level 138, Potassium Level 3.5, Chloride Level 77L, Carbon Dioxide Level > 45*H, Blood Urea Nitrogen 65H, Creatinine 4.6H, Estimat Glomerular Filtration Rate 15.4, Glucose Level 118H, Uric Acid 15.1H, Calcium Level 7.2L, Phosphorus Level 8.1H, Magnesium Level 1.7L, Iron Level 60, Total Iron Binding Capacity 281, Percent Iron Saturation 21, Unsaturated Iron Binding 221, Ferritin 433H, Total Bilirubin 0.5, Gamma Glutamyl Transpeptidase 352H, Aspartate Amino Transf (AST/SGOT) 180H, Alanine Aminotransferase (ALT/SGPT ) 38, Alkaline Phosphatase 226H, Troponin I 0.027, Pro-B-Type Natriuretic Peptide 231H, Total Protein 8.0, Albumin 3.2L, Globulin 4.8, Albumin/Globulin Ratio 0.7L, Vitamin B12 Level 1289H, Folate 50.1, Cortisol AM Sample [Pending] Height (Feet): 5 Height (Inches): 4.00 Weight (Pounds): 130 General Appearance: no apparent distress, lethargic Respiratory/Chest: lungs clear Abdomen: soft LANDEN CEBALLOS Jan 12, 2018 08:31
[2018-01-12] MEDS ORDERED: Pantoprazole Inj IVP SCH (09:00)
[2018-01-12] MEDS: Gabapentin 300 MG/6 ML Soln ORAL SCH ×2 (09:01→12:36)
[2018-01-12] MEDS ORDERED: D5NS 1,000 ML IV SCH (09:30)
--- NOTE | 2018-01-12 10:03 | Diagnostic Imaging Report ---
Indication: Altered mental status Technique: Continuous helical CT scanning of the head was performed utilizing automated exposure control without intravenous contrast material. Axial and coronal reconstructions were obtained. Comparison: None CT dose: Total DLP 1428 mGycm; CTDI vol 70.4 mGy Findings: There is no acute intracranial hemorrhage, mass effect or cortical edema. The ventricles, cisterns and sulci are within normal limits. Periventricular hypoattenuation is seen, a nonspecific finding. The posterior fossa and fourth ventricle are unremarkable. Sellar and suprasellar regions are grossly unremarkable. There is minimal mucoperiosteal thickening of the left maxillary sinus. Mastoid air cells are clear. No focal lesions of the bony calvarium or soft tissues of the scalp are seen. Impression: No evidence of acute intracranial hemorrhage, mass effect or cortical edema. MRI may be obtained for more sensitive evaluation as clinically indicated. The CT scanner at [facility] is accredited by the [employer] and the scans are performed using protocols designed to limit radiation exposure to as low as reasonably achievable to attain images of sufficient resolution adequate for diagnostic evaluation.
--- NOTE | 2018-01-12 10:08 | Diagnostic Imaging Report ---
Indication: Shortness of breath Technique: XRAY Chest 1v Comparison: None Findings: Cardiomediastinal silhouette is within normal limits. There is no consolidation or pleural effusion. Right PICC line is in satisfactory position. Surgical changes of the upper abdomen are noted. Impression: Satisfactory right PICC line. No focal consolidation.
[2018-01-12] MEDS ORDERED: TPN IV SCH (10:30)
[2018-01-12] MEDS ORDERED: FAT EMULSION 20% IV SCH (10:30)
[2018-01-12] MEDS ORDERED: LORazepam Inj 2mg/ml 1ml IV PRN (14:00)
[2018-01-12] MEDS: D5NS 1,000 ML IV SCH ×3 (14:07→21:06)
[2018-01-12] MEDS ORDERED: Metoprolol 5mg/5ml Inj IVP PRN (15:00)
[2018-01-12] MEDS ORDERED: cefTRIAXone 1 GM in D5W 55 ML IVPB SCH (17:00)
[2018-01-12] MEDS: cefTRIAXone 1 GM in D5W 55 ML IVPB SCH (17:37)
[2018-01-12] MEDS: DiphenhydrAMINE 50mg/ml Inj IVP PRN (17:37)
[2018-01-12] MEDS ORDERED: DAPTOmycin 350 MG in NS 55 ML IV SCH (18:00)
[2018-01-12] MEDS: DAPTOmycin 350 MG in NS 55 ML IV SCH (18:25)
[2018-01-12] MEDS ORDERED: Dyna-Hex 2% Top Sol 2oz TOPIC SCH (20:00)
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
[2018-01-12] MEDS ORDERED: Dextrose 10% 1,000 ML IV PRN (21:00)
[2018-01-12] MEDS: Dyna-Hex 2% Top Sol 2oz TOPIC SCH (21:07)
[2018-01-13] VITALS: BP 99/65
[2018-01-13 04:00] VITALS: BP 96/64
[2018-01-13] MEDS: D5NS 1,000 ML IV SCH ×5 (04:07→23:08)
[2018-01-13 05:30] LABS: HEMATOCRIT 26.5 % (42.0-52.0); HEMOGLOBIN 8.9 G/DL (14.2-18.0); MEAN CORPUSCULAR VOLUME 102 FL (80-99); PLATELET COUNT 205 K/UL (150-450); RED BLOOD COUNT 2.61 M/UL (4.70-6.10); RED CELL DISTRIBUTION WIDTH 13.3 % (11.6-14.8)
[2018-01-13 05:34] LABS: WHITE BLOOD COUNT 28.9 K/UL (4.8-10.8)
[2018-01-13] MEDS: NovoLOG Insulin Flexpen SUBQ SCH ×3 (05:46→17:35)
[2018-01-13 06:22] LABS: PHOSPHORUS 4.5 MG/DL (2.5-4.9)
[2018-01-13 08:00] VITALS: BP 103/72
[2018-01-13 08:07] LABS: ALANINE AMINOTRANSFERASE 37 U/L (12-78); ALBUMIN 3.1 G/DL (3.4-5.0); ALBUMIN/GLOBULIN RATIO 0.9 (1.0-2.7); ALKALINE PHOSPHATASE 163 U/L (46-116); ASPARTATE AMINO TRANSFERASE 174 U/L (15-37); BILIRUBIN,TOTAL 0.6 MG/DL (0.2-1.0); BLOOD UREA NITROGEN 50 mg/dL (7-18); CALCIUM 7.4 MG/DL (8.5-10.1); CHLORIDE 88 MMOL/L (98-107); CREATININE 3.8 MG/DL (0.55-1.30); SODIUM 140 MMOL/L (136-145)
[2018-01-13 08:12] LABS: POTASSIUM 2.5 MMOL/L (3.5-5.1)
[2018-01-13 08:13] LABS: CARBON DIOXIDE > 45 MMOL/L (21-32)
[2018-01-13] MEDS ORDERED: Pantoprazole Inj IVP SCH (09:00)
[2018-01-13] MEDS ORDERED: Potassium Chloride 50 MEQ in Sodium Chloride 500ML 550 ML IVPB ONE (10:30)
[2018-01-13] MEDS ORDERED: Albumin Human 5% 250ml IV ONE (11:00)
[2018-01-13] MEDS: DiphenhydrAMINE 50mg/ml Inj IVP PRN ×2 (11:07→18:13)
--- NOTE | 2018-01-13 11:45 | Pulmonology Progress Note ---
Assessment/Plan Problems: (1) Dehydration (2) SVT (supraventricular tachycardia) (3) Hypoglycemia (4) Hypokalemia (5) Pain (6) H/O splenectomy (7) History of nephrectomy Assessment/Plan TPN pain management trial of Marionol K supplement Subjective ROS Limited/Unobtainable: No Constitutional: Reports: no symptoms HEENT: Repors: no symptoms Allergies: Coded Allergies: MEPERIDINE (Verified Allergy, Severe, 12/25/17) AMPHOTERICIN B (Verified Allergy, Intermediate, 12/25/17) VORICONAZOLE (Verified Allergy, Intermediate, 12/25/17) MORPHINE (Verified Allergy, Unknown, 12/25/17) Uncoded Allergies: CHAVA (Adverse Reaction, Unknown, 12/25/17) Objective Last 24 Hour Vital Signs Date Time Temp Pulse Resp B/P (MAP) Pulse Ox O2 Delivery O2 Flow Rate FiO2 01/13/18 08:00 98.2 90 20 103/72 100 98.2 01/13/18 04:00 99.6 83 20 96/64 100 99.6 01/13/18 01:20 99.2 01/13/18 00:50 99.2 01/13/18 00:00 99.2 94 20 99/65 97 99.2 01/12/18 20:00 100.5 93 20 94/60 90 100.5 01/12/18 19:00 98 Room Air 21 01/12/18 19:00 Room Air 21 01/12/18 16:00 97.4 84 18 123/71 84 Room Air 97.4 01/12/18 13:00 80 15 97/84 100 Room Air 01/12/18 12:40 97.6 01/12/18 12:00 98.0 69 16 97/84 100 Room Air 98.0 01/12/18 12:00 69 Intake and Output 01/12/18 01/13/18 19:00 07:00 Intake Total 1150 ml 1400 ml Output Total 1380 ml 1000 ml Balance -230 ml 400 ml Intake Oral 200 ml IV Total 950 ml 1400 ml Output Urine Total 1380 ml 1000 ml # Voids 1 Objective HEENT: atraumatic Neck: full ROM Heart: HR/BP stable Abdomen: soft, active bowel sounds, feeding tube Extremities: edema Decubiti: location Microbiology Date/Time Source Procedure Growth Status 01/11/18 21:20 Nasopharynx Influenza Types A,B Antigen (GIL) - Final Complete Laboratory Tests 01/13/18 04:00: White Blood Count 28.9#*H, Red Blood Count 2.61L, Hemoglobin 8.9L, Hematocrit 26.5L, Mean Corpuscular Volume 102H, Mean Corpuscular Hemoglobin 34.3H, Mean Corpuscular Hemoglobin Concent 33.8, Red Cell Distribution Width 13.3, Platelet Count 205, Mean Platelet Volume 7.5, Neutrophils (%) (Auto) , Lymphocytes (%) ( Auto) , Monocytes (%) (Auto) , Eosinophils (%) (Auto) , Basophils (%) (Auto) , Differential Total Cells Counted 100, Neutrophils % (Manual) 91H, Lymphocytes % (Manual) 6L, Monocytes % (Manual) 3, Eosinophils % (Manual) 0, Basophils % ( Manual) 0, Band Neutrophils 0, Platelet Estimate Adequate, Platelet Morphology Normal, Hypochromasia 2+, Anisocytosis 1+, Macrocytosis 1+, Sodium Level 140, Potassium Level 2.5*L, Chloride Level 88L, Carbon Dioxide Level > 45*H, Blood Urea Nitrogen 50H, Creatinine 3.8H, Estimat Glomerular Filtration Rate 19.2, Glucose Level 97, Uric Acid 9.3H, Calcium Level 7.4L, Phosphorus Level 4.5, Magnesium Level 1.5L, Total Bilirubin 0.6, Aspartate Amino Transf (AST/SGOT) 174H, Alanine Aminotransferase (ALT/SGPT) 37, Alkaline Phosphatase 163H, Pro-B- Type Natriuretic Peptide 174H, Total Protein 6.6, Albumin 3.1L, Globulin 3.5, Albumin/Globulin Ratio 0.9L Current Medications Medications (Trade) Dose Ordered Sig/Serenity Route PRN Reason Start Time Stop Time Status Last Admin Dose Admin Acetaminophen (Tylenol) 650 mg Q4H PRN ORAL Mild Pain/Temp > 100.5 01/12/18 13:15 02/08/18 17:14 Acetazolamide (Diamox) 250 mg TWICE A DAY ORAL 01/13/18 18:00 02/12/18 17:59 Ceftriaxone Sodium 1 gm/ Dextrose 55 ml @ 110 mls/hr Q24H IVPB 01/12/18 17:00 01/18/18 16:59 01/12/18 17:37 Chlorhexidine Gluconate (Ashlyn-Hex 2%) 1 applic DAILY@2000 TOPIC 01/12/18 20:00 02/08/18 19:59 01/12/18 21:07 Daptomycin 350 mg/ Sodium Chloride 55 ml @ 100 mls/hr Q24H IV 01/12/18 18:00 01/18/18 17:59 01/12/18 18:25 Dextrose (Dextrose 50%) STAT PRN IV Hypoglycemia 01/12/18 21:00 02/09/18 20:52 Dextrose/Sodium Chloride 1,000 ml @ 200 mls/hr Q5H IV 01/12/18 13:00 02/11/18 09:29 01/13/18 09:27 Diphenhydramine HCl (Benadryl) 25 mg Q6H PRN IVP Itching 01/12/18 16:30 02/10/18 10:29 01/13/18 11:07 Gabapentin (Neurontin) 300 mg THREE TIMES A DAY ORAL 01/12/18 18:00 02/10/18 17:59 01/13/18 09:24 Hydromorphone HCl (Dilaudid) 1 mg Q4H PRN IVP Severe Pain (Pain Scale 7-10) 01/12/18 14:15 01/17/18 20:51 01/13/18 09:27 Insulin Aspart (NovoLOG) Q6HR SUBQ 01/12/18 18:00 02/09/18 17:59 Lorazepam (Ativan 2mg/ml 1ml) 1 mg Q4H PRN IV For Anxiety 01/12/18 14:00 01/18/18 17:59 Micafungin Sodium 100 mg/Sodium Chloride 110 ml @ 110 mls/hr Q24H IVPB 01/13/18 12:00 01/20/18 11:59 Mirtazapine (Remeron) 15 mg BEDTIME ORAL 01/12/18 21:00 02/08/18 20:59 Ondansetron HCl (Zofran) 4 mg Q6H PRN IVP Nausea & Vomiting 01/12/18 15:00 02/08/18 20:55 01/13/18 11:07 Pantoprazole (Protonix) 40 mg DAILY IVP 01/13/18 09:00 02/12/18 08:59 01/13/18 09:24 Potassium Chloride 10 meq/ Sodium Chloride 115 ml @ 115 mls/hr ONCE ONCE IVPB 01/13/18 13:30 01/13/18 14:29 Potassium Chloride 100 ml @ 100 mls/hr Q1H IVPB 01/13/18 11:30 01/13/18 13:29 01/13/18 11:07 Temazepam (Restoril) 15 mg HSPRN PRN ORAL Insomnia 01/12/18 21:00 01/17/18 20:55 CHANDRAKANT VARGAS Jan 13, 2018 11:45
[2018-01-13 12:00] VITALS: BP 106/69
[2018-01-13] MEDS ORDERED: Micafungin 100 MG in NS 110 ML IVPB SCH (12:00)
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
[2018-01-13] MEDS ORDERED: Potassium Chloride 10 MEQ in NS 110 ML IVPB ONE (13:30)
[2018-01-13] MEDS: Dronabinol 2.5mg Cap ORAL SCH ×2 (13:50→17:16)
--- NOTE | 2018-01-13 15:10 | Nephrology Progress Note ---
Assessment/Plan Problem List: (1) Acute renal failure (ARF) Assessment: cr lowering Assessment (1) Acute renal failure (2) Dehydration (3) Hypokalemia (4) h/o Abdominal pain (5) History of nephrectomy (6) H/O splenectomy Plan Plan: D5NS 200 cc hour TPN hold Frost down to pain meds Urine studies Monitor renal parameters avoid nephrotoxics Per orders Subjective ROS Limited/Unobtainable: No Constitutional: Reports: malaise, other - vomiting Objective Objective Last 24 Hour Vital Signs Date Time Temp Pulse Resp B/P (MAP) Pulse Ox O2 Delivery O2 Flow Rate FiO2 01/13/18 12:00 98.6 95 18 106/69 99 98.6 01/13/18 08:41 Room Air 01/13/18 08:37 98 Room Air 01/13/18 08:00 98.2 90 20 103/72 100 98.2 01/13/18 04:00 99.6 83 20 96/64 100 99.6 01/13/18 01:20 99.2 01/13/18 00:50 99.2 01/13/18 00:00 99.2 94 20 99/65 97 99.2 01/12/18 20:00 100.5 93 20 94/60 90 100.5 01/12/18 19:00 98 Room Air 21 01/12/18 19:00 Room Air 21 01/12/18 16:00 97.4 84 18 123/71 84 Room Air 97.4 Intake and Output 01/12/18 01/13/18 19:00 07:00 Intake Total 1150 ml 1400 ml Output Total 1380 ml 1000 ml Balance -230 ml 400 ml Intake Oral 200 ml IV Total 950 ml 1400 ml Output Urine Total 1380 ml 1000 ml # Voids 1 Laboratory Tests 01/13/18 04:00: White Blood Count 28.9#*H, Red Blood Count 2.61L, Hemoglobin 8.9L, Hematocrit 26.5L, Mean Corpuscular Volume 102H, Mean Corpuscular Hemoglobin 34.3H, Mean Corpuscular Hemoglobin Concent 33.8, Red Cell Distribution Width 13.3, Platelet Count 205, Mean Platelet Volume 7.5, Neutrophils (%) (Auto) , Lymphocytes (%) ( Auto) , Monocytes (%) (Auto) , Eosinophils (%) (Auto) , Basophils (%) (Auto) , Differential Total Cells Counted 100, Neutrophils % (Manual) 91H, Lymphocytes % (Manual) 6L, Monocytes % (Manual) 3, Eosinophils % (Manual) 0, Basophils % ( Manual) 0, Band Neutrophils 0, Platelet Estimate Adequate, Platelet Morphology Normal, Hypochromasia 2+, Anisocytosis 1+, Macrocytosis 1+, Sodium Level 140, Potassium Level 2.5*L, Chloride Level 88L, Carbon Dioxide Level > 45*H, Blood Urea Nitrogen 50H, Creatinine 3.8H, Estimat Glomerular Filtration Rate 19.2, Glucose Level 97, Uric Acid 9.3H, Calcium Level 7.4L, Phosphorus Level 4.5, Magnesium Level 1.5L, Total Bilirubin 0.6, Aspartate Amino Transf (AST/SGOT) 174H, Alanine Aminotransferase (ALT/SGPT) 37, Alkaline Phosphatase 163H, Pro-B- Type Natriuretic Peptide 174H, Total Protein 6.6, Albumin 3.1L, Globulin 3.5, Albumin/Globulin Ratio 0.9L Height (Feet): 5 Height (Inches): 4.00 Weight (Pounds): 119 General Appearance: mild distress Cardiovascular: tachycardia Respiratory/Chest: decreased breath sounds LANDEN CEBALLOS Jan 13, 2018 15:10
[2018-01-13] MEDS: Micafungin 100 MG in NS 110 ML IVPB SCH (15:15)
[2018-01-13 16:00] VITALS: BP 92/62
--- NOTE | 2018-01-13 16:24 | Cardiology Report ---
APPROVED REPORT EKG Measurement Heart [id number] NM [id number] Sinus tachycardia with short NM Marked ST abnormality, possible inferior subendocardial injury Abnormal ECG
[2018-01-13] MEDS: cefTRIAXone 1 GM in D5W 55 ML IVPB SCH (17:15)
[2018-01-13] MEDS: DAPTOmycin 350 MG in NS 55 ML IV SCH (17:16)
[2018-01-13 20:00] VITALS: BP 100/59
[2018-01-13] MEDS: Dyna-Hex 2% Top Sol 2oz TOPIC SCH (21:01)
[2018-01-14] VITALS: BP 102/67
[2018-01-14] MEDS: DiphenhydrAMINE 50mg/ml Inj IVP PRN ×4 (00:15→20:29)
[2018-01-14] MEDS: NovoLOG Insulin Flexpen SUBQ SCH ×5 (00:17→23:57)
[2018-01-14 04:00] VITALS: BP 105/66
[2018-01-14] MEDS: D5NS 1,000 ML IV SCH ×4 (04:38→21:35)
[2018-01-14 07:34] LABS: BASOPHILS % (AUTO) 0.3 % (0.0-2.0); EOSINOPHILS % (AUTO) 0.5 % (0.0-3.0); HEMATOCRIT 24.7 % (42.0-52.0); HEMOGLOBIN 8.2 G/DL (14.2-18.0); LYMPHOCYTES % (AUTO) 7.9 % (20.0-45.0); MEAN CORPUSCULAR VOLUME 102 FL (80-99); MONOCYTES % (AUTO) 7.4 % (1.0-10.0); PLATELET COUNT 183 K/UL (150-450); RED BLOOD COUNT 2.42 M/UL (4.70-6.10); RED CELL DISTRIBUTION WIDTH 13.5 % (11.6-14.8); WHITE BLOOD COUNT 15.1 K/UL (4.8-10.8)
[2018-01-14 07:49] LABS: ALANINE AMINOTRANSFERASE 29 U/L (12-78); ALBUMIN 2.6 G/DL (3.4-5.0); ALBUMIN/GLOBULIN RATIO 0.7 (1.0-2.7); ALKALINE PHOSPHATASE 131 U/L (46-116); ANION GAP 4 mmol/L (5-15); ASPARTATE AMINO TRANSFERASE 88 U/L (15-37); BLOOD UREA NITROGEN 39 mg/dL (7-18); CARBON DIOXIDE 37 MMOL/L (21-32); CHLORIDE 99 MMOL/L (98-107); CREATININE 3.2 MG/DL (0.55-1.30); PHOSPHORUS 2.9 MG/DL (2.5-4.9); SODIUM 140 MMOL/L (136-145)
[2018-01-14 07:50] LABS: POTASSIUM 2.7 MMOL/L (3.5-5.1)
[2018-01-14 08:00] VITALS: BP 98/66
[2018-01-14] MEDS ORDERED: Potassium Chloride 50 MEQ in Sodium Chloride 500ML 550 ML IVPB ONE (09:00)
--- NOTE | 2018-01-14 09:49 | Cardiology Report ---
APPROVED REPORT EXAM: Two-dimensional and M-mode echocardiogram with Doppler and color Doppler. INDICATION Tachycardia M-Mode DIMENSIONS IVSd0.6 (0.7-1.1cm)Left Atrium (MM)2.3 (1.6-4.0cm) LVDd4.5 (3.5-5.6cm)Aortic Root2.6 (2.0-3.7cm) PWd0.8 (0.7-1.1cm)Aortic Cusp Exc.2.0 (1.5-2.0cm) LVDs3.8 (2.5-4.0cm) PWs0.8 cm Technically difficult study due to poor acoustical windows. Normal left ventricular chamber size, systolic function and wall motion. Left ventricular ejection fraction estimated to be 55%. No evidence of left ventricular hypertrophy. No evidence of pericardial or pleural effusion. All other cardiac chamber sizes are within normal limits. Focal aortic valve sclerosis with adequate cusp excursion. Normal mitral valve leaflets with normal excursion. Normal mitral annulus and aortic root. Pulmonic valve not well visualized. Normal tricuspid valve structure. IVC no obtainable. A color flow and spectral Doppler study was performed and revealed: No aortic regurgitation. No mitral regurgitation. Normal mitral diastolic function. Trace tricuspid regurgitation.
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
--- NOTE | 2018-01-14 10:39 | Nephrology Progress Note ---
Assessment/Plan Problem List: (1) Acute renal failure (ARF) Assessment: cr lowering (2) Intractable vomiting (3) Dehydration (4) Hypokalemia Assessment (1) Acute renal failure (2) Dehydration (3) Hypokalemia (4) h/o Abdominal pain (5) History of nephrectomy (6) H/O splenectomy Plan Plan: D5NS 250 cc hour KCL IV 100meq stop Marinol for vomiting TPN hold Frost down to pain meds Urine studies Monitor renal parameters avoid nephrotoxics Per orders Subjective ROS Limited/Unobtainable: No Constitutional: Reports: malaise, weakness Objective Objective Last 24 Hour Vital Signs Date Time Temp Pulse Resp B/P (MAP) Pulse Ox O2 Delivery O2 Flow Rate FiO2 01/14/18 08:12 Venturi Mask 12.0 50 01/14/18 08:12 98 Venturi Mask 12.0 50 01/14/18 04:00 98.5 84 20 105/66 95 98.5 01/14/18 00:00 98.4 89 20 102/67 94 98.4 01/13/18 20:00 98.5 78 20 100/59 95 98.5 01/13/18 20:00 Venturi Mask 15.0 01/13/18 16:00 98.0 90 16 92/62 99 98.0 01/13/18 12:00 98.6 95 18 106/69 99 98.6 Intake and Output 01/13/18 01/14/18 19:00 07:00 Intake Total 3000 ml Output Total 2500 ml Balance 500 ml Intake Oral 1000 ml IV Total 2000 ml Output Urine Total 900 ml Stool Total 1600 ml # Voids 3 Laboratory Tests 01/14/18 06:40: White Blood Count 15.1H, Red Blood Count 2.42L, Hemoglobin 8.2L, Hematocrit 24.7L, Mean Corpuscular Volume 102H, Mean Corpuscular Hemoglobin 34.1H, Mean Corpuscular Hemoglobin Concent 33.4, Red Cell Distribution Width 13.5, Platelet Count 183, Mean Platelet Volume 8.3, Neutrophils (%) (Auto) 84.0H, Lymphocytes ( %) (Auto) 7.9L, Monocytes (%) (Auto) 7.4, Eosinophils (%) (Auto) 0.5, Basophils (%) (Auto) 0.3, Sodium Level 140, Potassium Level 2.7*L, Chloride Level 99, Carbon Dioxide Level 37H, Anion Gap 4L, Blood Urea Nitrogen 39H, Creatinine 3.2H , Estimat Glomerular Filtration Rate 23.4, Glucose Level 91, Uric Acid 8.3H, Calcium Level 8.0L, Phosphorus Level 2.9, Magnesium Level 1.2L, Total Bilirubin 1.0, Aspartate Amino Transf (AST/SGOT) 88H, Alanine Aminotransferase (ALT/SGPT) 29, Alkaline Phosphatase 131H, C-Reactive Protein, Quantitative 18.3H, Pro-B- Type Natriuretic Peptide 228H, Total Protein 6.5, Albumin 2.6L, Globulin 3.9, Albumin/Globulin Ratio 0.7L Height (Feet): 5 Height (Inches): 4.00 Weight (Pounds): 119 General Appearance: lethargic Cardiovascular: tachycardia Respiratory/Chest: decreased breath sounds LANDEN CEBALLOS Jan 14, 2018 10:38
[2018-01-14] MEDS: Pantoprazole Inj IVP SCH ×2 (11:19→20:28)
[2018-01-14 12:00] VITALS: BP 97/61
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
[2018-01-14] MEDS: Micafungin 100 MG in NS 110 ML IVPB SCH (15:35)
[2018-01-14 16:00] VITALS: BP 106/71
--- NOTE | 2018-01-14 17:24 | Pulmonology Progress Note ---
Assessment/Plan Problems: (1) Dehydration (2) SVT (supraventricular tachycardia) (3) Hypoglycemia (4) Hypokalemia (5) Pain (6) H/O splenectomy (7) History of nephrectomy Assessment/Plan wbc lower all ntoed ID to see TPN pain management trial of Marionol K supplement Subjective ROS Limited/Unobtainable: No Allergies: Coded Allergies: MEPERIDINE (Verified Allergy, Severe, 12/25/17) AMPHOTERICIN B (Verified Allergy, Intermediate, 12/25/17) VORICONAZOLE (Verified Allergy, Intermediate, 12/25/17) MORPHINE (Verified Allergy, Unknown, 12/25/17) Uncoded Allergies: CHAVA (Adverse Reaction, Unknown, 12/25/17) Objective Last 24 Hour Vital Signs Date Time Temp Pulse Resp B/P (MAP) Pulse Ox O2 Delivery O2 Flow Rate FiO2 01/14/18 16:00 98.2 78 20 106/71 95 98.2 01/14/18 12:00 98.4 98 21 97/61 95 98.4 01/14/18 08:12 Venturi Mask 12.0 50 01/14/18 08:12 98 Venturi Mask 12.0 50 01/14/18 08:00 98.0 98 20 98/66 95 98.0 01/14/18 04:00 98.5 84 20 105/66 95 98.5 01/14/18 00:00 98.4 89 20 102/67 94 98.4 01/13/18 20:00 98.5 78 20 100/59 95 98.5 01/13/18 20:00 Venturi Mask 15.0 Intake and Output 01/13/18 01/14/18 19:00 07:00 Intake Total 3000 ml Output Total 2500 ml Balance 500 ml Intake Oral 1000 ml IV Total 2000 ml Output Urine Total 900 ml Stool Total 1600 ml # Voids 3 Objective HEENT: atraumatic Neck: full ROM Heart: HR/BP stable Abdomen: soft, active bowel sounds, feeding tube Extremities: no edema Microbiology Date/Time Source Procedure Growth Status 01/11/18 21:20 Nasopharynx Influenza Types A,B Antigen (GIL) - Final Complete Laboratory Tests 01/14/18 06:40: White Blood Count 15.1H, Red Blood Count 2.42L, Hemoglobin 8.2L, Hematocrit 24.7L, Mean Corpuscular Volume 102H, Mean Corpuscular Hemoglobin 34.1H, Mean Corpuscular Hemoglobin Concent 33.4, Red Cell Distribution Width 13.5, Platelet Count 183, Mean Platelet Volume 8.3, Neutrophils (%) (Auto) 84.0H, Lymphocytes ( %) (Auto) 7.9L, Monocytes (%) (Auto) 7.4, Eosinophils (%) (Auto) 0.5, Basophils (%) (Auto) 0.3, Sodium Level 140, Potassium Level 2.7*L, Chloride Level 99, Carbon Dioxide Level 37H, Anion Gap 4L, Blood Urea Nitrogen 39H, Creatinine 3.2H , Estimat Glomerular Filtration Rate 23.4, Glucose Level 91, Uric Acid 8.3H, Calcium Level 8.0L, Phosphorus Level 2.9, Magnesium Level 1.2L, Total Bilirubin 1.0, Aspartate Amino Transf (AST/SGOT) 88H, Alanine Aminotransferase (ALT/SGPT) 29, Alkaline Phosphatase 131H, C-Reactive Protein, Quantitative 18.3H, Pro-B- Type Natriuretic Peptide 228H, Total Protein 6.5, Albumin 2.6L, Globulin 3.9, Albumin/Globulin Ratio 0.7L Current Medications Medications (Trade) Dose Ordered Sig/Serenity Route PRN Reason Start Time Stop Time Status Last Admin Dose Admin Acetaminophen (Tylenol) 650 mg Q4H PRN ORAL Mild Pain/Temp > 100.5 01/12/18 13:15 02/08/18 17:14 Acetazolamide (Diamox) 250 mg TWICE A DAY ORAL 01/13/18 18:00 02/12/18 17:59 01/14/18 11:19 Ceftriaxone Sodium 1 gm/ Dextrose 55 ml @ 110 mls/hr Q24H IVPB 01/12/18 17:00 01/18/18 16:59 01/13/18 17:15 Chlorhexidine Gluconate (Ashlyn-Hex 2%) 1 applic DAILY@2000 TOPIC 01/12/18 20:00 02/08/18 19:59 01/13/18 21:01 Daptomycin 350 mg/ Sodium Chloride 55 ml @ 100 mls/hr Q24H IV 01/12/18 18:00 01/18/18 17:59 01/13/18 17:16 Dextrose (Dextrose 50%) STAT PRN IV Hypoglycemia 01/12/18 21:00 4/7/18 20:52 Dextrose/Sodium Chloride 1,000 ml @ 250 mls/hr Q4H IV 01/14/18 13:00 02/13/18 12:59 01/14/18 13:11 Diphenhydramine HCl (Benadryl) 25 mg Q6H PRN IVP Itching 01/12/18 16:30 02/10/18 10:29 01/14/18 13:11 Hydromorphone HCl (Dilaudid) 1 mg Q4H PRN IVP Severe Pain (Pain Scale 7-10) 01/12/18 14:15 01/17/18 20:51 01/14/18 15:35 Insulin Aspart (NovoLOG) Q6HR SUBQ 01/12/18 18:00 02/09/18 17:59 01/14/18 05:45 Lorazepam (Ativan 2mg/ml 1ml) 1 mg Q4H PRN IV For Anxiety 01/12/18 14:00 01/18/18 17:59 Micafungin Sodium 100 mg/Sodium Chloride 110 ml @ 110 mls/hr Q24H IVPB 01/13/18 15:00 01/20/18 14:59 01/14/18 15:35 Mirtazapine (Remeron) 15 mg BEDTIME ORAL 01/12/18 21:00 02/08/18 20:59 Ondansetron HCl (Zofran) 4 mg Q6H PRN IVP Nausea & Vomiting 01/12/18 15:00 02/08/18 20:55 01/13/18 22:14 Pantoprazole (Protonix) 40 mg Q12HR IVP 01/14/18 09:30 02/12/18 09:29 01/14/18 11:19 Temazepam (Restoril) 15 mg HSPRN PRN ORAL Insomnia 01/12/18 21:00 01/17/18 20:55 CHANDRAKANT VARGAS Jan 14, 2018 17:24
[2018-01-14] MEDS: HYDROmorphone 1mg/ml Carpuject IVP PRN ×3 (17:36→23:48)
[2018-01-14] MEDS: cefTRIAXone 1 GM in D5W 55 ML IVPB SCH (17:36)
[2018-01-14] MEDS: DAPTOmycin 350 MG in NS 55 ML IV SCH (18:21)
[2018-01-14 20:00] VITALS: BP 127/72
[2018-01-14] MEDS: Dyna-Hex 2% Top Sol 2oz TOPIC SCH (20:00)
[2018-01-15] VITALS: BP 104/65
[2018-01-15] MEDS: D5NS 1,000 ML IV SCH ×6 (01:08→23:49)
[2018-01-15] MEDS: DiphenhydrAMINE 50mg/ml Inj IVP PRN ×4 (02:52→21:33)
[2018-01-15] MEDS: HYDROmorphone 1mg/ml Carpuject IVP PRN ×7 (02:53→21:23)
[2018-01-15 04:00] VITALS: BP 107/58
[2018-01-15] MEDS: NovoLOG Insulin Flexpen SUBQ SCH ×4 (06:00→22:59)
[2018-01-15 07:02] LABS: HEMATOCRIT 24.2 % (42.0-52.0); HEMOGLOBIN 7.9 G/DL (14.2-18.0); MEAN CORPUSCULAR VOLUME 104 FL (80-99); PLATELET COUNT 178 K/UL (150-450); RED BLOOD COUNT 2.32 M/UL (4.70-6.10); RED CELL DISTRIBUTION WIDTH 13.8 % (11.6-14.8); WHITE BLOOD COUNT 9.2 K/UL (4.8-10.8)
[2018-01-15 07:32] LABS: ALANINE AMINOTRANSFERASE 25 U/L (12-78); ALBUMIN 2.3 G/DL (3.4-5.0); ALBUMIN/GLOBULIN RATIO 0.6 (1.0-2.7); ALKALINE PHOSPHATASE 124 U/L (46-116); ANION GAP 9 mmol/L (5-15); ASPARTATE AMINO TRANSFERASE 51 U/L (15-37); BILIRUBIN,TOTAL 0.6 MG/DL (0.2-1.0); BLOOD UREA NITROGEN 27 mg/dL (7-18); CALCIUM 8.1 MG/DL (8.5-10.1); CARBON DIOXIDE 26 MMOL/L (21-32); CHLORIDE 109 MMOL/L (98-107); CREATININE 2.4 MG/DL (0.55-1.30); PHOSPHORUS 2.5 MG/DL (2.5-4.9); POTASSIUM 3.2 MMOL/L (3.5-5.1); SODIUM 143 MMOL/L (136-145)
[2018-01-15 08:00] VITALS: BP 100/60
[2018-01-15] MEDS: Pantoprazole Inj IVP SCH ×2 (09:04→19:47)
[2018-01-15 12:00] VITALS: BP 120/80
[2018-01-15] MEDS ORDERED: Potassium Chloride 50 MEQ in Sodium Chloride 500ML 550 ML IVPB ONE (13:00)
--- NOTE | 2018-01-15 15:06 | Nephrology Progress Note ---
Assessment/Plan Problem List: (1) Acute renal failure (ARF) Assessment: cr lowering (2) Intractable vomiting (3) Dehydration (4) Hypokalemia Assessment (1) Acute renal failure cr lowering (2) Dehydration (3) Hypokalemia improving (4) h/o Abdominal pain (5) History of nephrectomy (6) H/O splenectomy Plan Plan: D5NS 200 cc hour KCL IV 50 meq Mag IV stop Marinol for vomiting TPN resume Frost down to pain meds Urine studies Monitor renal parameters avoid nephrotoxics Per orders Subjective ROS Limited/Unobtainable: No Constitutional: Reports: malaise Objective Objective Last 24 Hour Vital Signs Date Time Temp Pulse Resp B/P (MAP) Pulse Ox O2 Delivery O2 Flow Rate FiO2 01/15/18 12:00 97.3 58 18 120/80 100 Nasal Cannula 5.0 97.3 01/15/18 08:00 97.7 107 18 100/60 100 Venturi Mask 15.0 97.7 01/15/18 04:00 Room Air 01/15/18 04:00 97.6 68 18 107/58 98 97.6 01/15/18 00:00 Venturi Mask 15.0 01/15/18 00:00 97.7 64 18 104/65 100 97.7 01/14/18 20:00 98.8 79 22 127/72 98 98.8 01/14/18 20:00 Venturi Mask 15.0 01/14/18 18:40 Venturi Mask 12.0 50 01/14/18 18:40 98 Venturi Mask 12.0 50 01/14/18 17:36 98.2 01/14/18 16:00 98.2 78 20 106/71 95 98.2 Intake and Output 01/14/18 01/15/18 19:00 07:00 Intake Total 480 ml 2480 ml Output Total 2000 ml Balance -1520 ml 2480 ml Intake Oral 480 ml 480 ml IV Total 2000 ml Stool Total 2000 ml Laboratory Tests 01/15/18 06:10: White Blood Count 9.2, Red Blood Count 2.32L, Hemoglobin 7.9L, Hematocrit 24.2L , Mean Corpuscular Volume 104H, Mean Corpuscular Hemoglobin 34.2H, Mean Corpuscular Hemoglobin Concent 32.8, Red Cell Distribution Width 13.8, Platelet Count 178, Mean Platelet Volume 9.2, Neutrophils (%) (Auto) , Lymphocytes (%) ( Auto) , Monocytes (%) (Auto) , Eosinophils (%) (Auto) , Basophils (%) (Auto) , Differential Total Cells Counted 100, Neutrophils % (Manual) 77H, Lymphocytes % (Manual) 11L, Monocytes % (Manual) 7, Eosinophils % (Manual) 5H, Basophils % ( Manual) 0, Band Neutrophils 0, Platelet Estimate Adequate, Platelet Morphology Normal, Hypochromasia 1+, Macrocytosis 1+, Sodium Level 143, Potassium Level 3.2L, Chloride Level 109H, Carbon Dioxide Level 26, Anion Gap 9, Blood Urea Nitrogen 27H, Creatinine 2.4H, Estimat Glomerular Filtration Rate 32.6, Glucose Level 94, Uric Acid 5.8, Calcium Level 8.1L, Phosphorus Level 2.5, Magnesium Level 1.7L, Total Bilirubin 0.6, Aspartate Amino Transf (AST/SGOT) 51H, Alanine Aminotransferase (ALT/SGPT) 25, Alkaline Phosphatase 124H, Pro-B-Type Natriuretic Peptide 526H, Total Protein 6.2L, Albumin 2.3L, Globulin 3.9, Albumin/Globulin Ratio 0.6L Height (Feet): 5 Height (Inches): 4.00 Weight (Pounds): 119 General Appearance: no apparent distress LANDEN CEBALLOS Jan 15, 2018 15:06
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
[2018-01-15] MEDS: Micafungin 100 MG in NS 110 ML IVPB SCH (15:21)
[2018-01-15 15:53] VITALS: BP 121/73
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
[2018-01-15] MEDS: cefTRIAXone 1 GM in D5W 55 ML IVPB SCH (17:02)
[2018-01-15] MEDS: DAPTOmycin 350 MG in NS 55 ML IV SCH (17:48)
[2018-01-15 20:00] VITALS: BP 116/80
[2018-01-15] MEDS: Dyna-Hex 2% Top Sol 2oz TOPIC SCH (20:06)
--- NOTE | 2018-01-15 21:04 | Pulmonology Progress Note ---
Assessment/Plan Problems: (1) Dehydration (2) SVT (supraventricular tachycardia) (3) Hypoglycemia (4) Hypokalemia (5) Pain (6) H/O splenectomy (7) History of nephrectomy Assessment/Plan wbc lower all ntoed ID to see TPN pain management trial of Marionol K supplement Subjective ROS Limited/Unobtainable: No HEENT: Repors: no symptoms Respiratory: Reports: no symptoms Allergies: Coded Allergies: MEPERIDINE (Verified Allergy, Severe, 12/25/17) AMPHOTERICIN B (Verified Allergy, Intermediate, 12/25/17) VORICONAZOLE (Verified Allergy, Intermediate, 12/25/17) MORPHINE (Verified Allergy, Unknown, 12/25/17) Uncoded Allergies: CHAVA (Adverse Reaction, Unknown, 12/25/17) Objective Last 24 Hour Vital Signs Date Time Temp Pulse Resp B/P (MAP) Pulse Ox O2 Delivery O2 Flow Rate FiO2 01/15/18 20:00 98.2 61 20 116/80 100 98.2 01/15/18 15:53 98.0 60 23 121/73 99 Nasal Cannula 5.0 98.0 01/15/18 12:00 97.3 58 18 120/80 100 Nasal Cannula 5.0 97.3 01/15/18 08:00 97.7 107 18 100/60 100 Venturi Mask 15.0 97.7 01/15/18 04:00 Room Air 01/15/18 04:00 97.6 68 18 107/58 98 97.6 01/15/18 00:00 Venturi Mask 15.0 01/15/18 00:00 97.7 64 18 104/65 100 97.7 Intake and Output 01/14/18 01/15/18 19:00 07:00 Intake Total 480 ml 2480 ml Output Total 2000 ml Balance -1520 ml 2480 ml Intake Oral 480 ml 480 ml IV Total 2000 ml Stool Total 2000 ml Objective HEENT: atraumatic Neck: full ROM Heart: HR/BP stable Abdomen: soft, active bowel sounds, feeding tube Extremities: no edema Laboratory Tests 01/15/18 06:10: White Blood Count 9.2, Red Blood Count 2.32L, Hemoglobin 7.9L, Hematocrit 24.2L , Mean Corpuscular Volume 104H, Mean Corpuscular Hemoglobin 34.2H, Mean Corpuscular Hemoglobin Concent 32.8, Red Cell Distribution Width 13.8, Platelet Count 178, Mean Platelet Volume 9.2, Neutrophils (%) (Auto) , Lymphocytes (%) ( Auto) , Monocytes (%) (Auto) , Eosinophils (%) (Auto) , Basophils (%) (Auto) , Differential Total Cells Counted 100, Neutrophils % (Manual) 77H, Lymphocytes % (Manual) 11L, Monocytes % (Manual) 7, Eosinophils % (Manual) 5H, Basophils % ( Manual) 0, Band Neutrophils 0, Platelet Estimate Adequate, Platelet Morphology Normal, Hypochromasia 1+, Macrocytosis 1+, Sodium Level 143, Potassium Level 3.2L, Chloride Level 109H, Carbon Dioxide Level 26, Anion Gap 9, Blood Urea Nitrogen 27H, Creatinine 2.4H, Estimat Glomerular Filtration Rate 32.6, Glucose Level 94, Uric Acid 5.8, Calcium Level 8.1L, Phosphorus Level 2.5, Magnesium Level 1.7L, Total Bilirubin 0.6, Aspartate Amino Transf (AST/SGOT) 51H, Alanine Aminotransferase (ALT/SGPT) 25, Alkaline Phosphatase 124H, Pro-B-Type Natriuretic Peptide 526H, Total Protein 6.2L, Albumin 2.3L, Globulin 3.9, Albumin/Globulin Ratio 0.6L Current Medications Medications (Trade) Dose Ordered Sig/Serenity Route PRN Reason Start Time Stop Time Status Last Admin Dose Admin Acetaminophen (Tylenol) 650 mg Q4H PRN ORAL Mild Pain/Temp > 100.5 01/12/18 13:15 02/08/18 17:14 Ceftriaxone Sodium 1 gm/ Dextrose 55 ml @ 110 mls/hr Q24H IVPB 01/12/18 17:00 01/18/18 16:59 01/15/18 17:02 Chlorhexidine Gluconate (Ashlyn-Hex 2%) 1 applic DAILY@2000 TOPIC 01/12/18 20:00 02/08/18 19:59 01/15/18 20:06 Daptomycin 350 mg/ Sodium Chloride 55 ml @ 100 mls/hr Q24H IV 01/12/18 18:00 01/18/18 17:59 01/15/18 17:48 Dextrose (Dextrose 50%) STAT PRN IV Hypoglycemia 01/12/18 21:00 02/09/18 20:52 Dextrose/Sodium Chloride 1,000 ml @ 200 mls/hr Q5H IV 01/15/18 13:00 02/14/18 12:59 01/15/18 13:59 Diphenhydramine HCl (Benadryl) 25 mg Q6H PRN IVP Itching 01/12/18 16:30 02/10/18 10:29 01/15/18 15:19 Fat Emulsion Intravenous 144 ml/Amino Acids/ Electrolytes/ Dextrose 1,200 ml @ 50 mls/hr Q24H IV 01/16/18 20:00 02/15/18 19:59 Future Hold Hydromorphone HCl (Dilaudid) 1 mg Q3H PRN IVP Severe Pain (Pain Scale 7-10) 01/14/18 17:30 01/21/18 17:29 01/15/18 18:33 Insulin Aspart (NovoLOG) Q6HR SUBQ 01/12/18 18:00 02/09/18 17:59 01/14/18 23:57 Lorazepam (Ativan 2mg/ml 1ml) 1 mg Q4H PRN IV For Anxiety 01/12/18 14:00 01/18/18 17:59 Micafungin Sodium 100 mg/Sodium Chloride 110 ml @ 110 mls/hr Q24H IVPB 01/13/18 15:00 01/20/18 14:59 01/15/18 15:21 Mirtazapine (Remeron) 15 mg BEDTIME ORAL 01/12/18 21:00 02/08/18 20:59 01/15/18 19:48 Ondansetron HCl (Zofran) 4 mg Q6H PRN IVP Nausea & Vomiting 01/12/18 15:00 02/08/18 20:55 01/13/18 22:14 Pantoprazole (Protonix) 40 mg Q12HR IVP 01/14/18 09:30 02/12/18 09:29 01/15/18 19:47 Temazepam (Restoril) 15 mg HSPRN PRN ORAL Insomnia 01/12/18 21:00 01/17/18 20:55 Wendi Ahmadi MD Jan 15, 2018 21:04
[2018-01-16] VITALS: BP 128/75
[2018-01-16] MEDS: HYDROmorphone 1mg/ml Carpuject IVP PRN ×8 (00:33→22:00)
[2018-01-16] MEDS: DiphenhydrAMINE 50mg/ml Inj IVP PRN ×4 (03:30→21:59)
[2018-01-16 04:00] VITALS: BP 109/71
[2018-01-16] MEDS: NovoLOG Insulin Flexpen SUBQ SCH ×3 (05:49→18:00)
[2018-01-16] MEDS: D5NS 1,000 ML IV SCH ×4 (05:50→20:16)
[2018-01-16 08:00] VITALS: BP 115/79
[2018-01-16] MEDS: Pantoprazole Inj IVP SCH ×2 (09:32→21:44)
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
[2018-01-16] MEDS ORDERED: Tubing IV Secondary IV ONE ×2 (11:04→14:09)
[2018-01-16] MEDS ORDERED: D5NS 1000ml IV ONE ×3 (11:04→14:09)
[2018-01-16 12:00] VITALS: BP 124/88
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
--- NOTE | 2018-01-16 12:35 | Nephrology Progress Note ---
Assessment/Plan Problem List: (1) Acute renal failure (ARF) Assessment: cr lowering (2) Intractable vomiting (3) Dehydration (4) Hypokalemia Assessment (1) Acute renal failure cr lowering (2) Dehydration (3) Hypokalemia improving (4) h/o Abdominal pain (5) History of nephrectomy (6) H/O splenectomy Plan Plan: no labs today yet D5NS 200 cc hour stop Marinol for vomiting TPN resume Frost down to pain meds Urine studies Monitor renal parameters avoid nephrotoxics Per orders Subjective ROS Limited/Unobtainable: No Constitutional: Reports: malaise Objective Objective Last 24 Hour Vital Signs Date Time Temp Pulse Resp B/P (MAP) Pulse Ox O2 Delivery O2 Flow Rate FiO2 01/16/18 08:00 98.0 64 20 115/79 100 98.0 01/16/18 07:55 Venturi Mask 12.0 50 01/16/18 07:45 98 Venturi Mask 12.0 50 01/16/18 04:00 98.0 54 20 109/71 95 98.0 01/16/18 00:00 98.1 56 20 128/75 100 98.1 01/15/18 20:00 98.2 61 20 116/80 100 98.2 01/15/18 15:53 98.0 60 23 121/73 99 Nasal Cannula 5.0 98.0 Intake and Output 01/15/18 01/16/18 19:00 07:00 Intake Total 3620 ml Output Total 2800 ml 5100 ml Balance 820 ml -5100 ml Intake Oral 1680 ml IV Total 1940 ml Output Urine Total 800 ml 600 ml Gastric Drainage Total 2000 ml Other 4500 ml Height (Feet): 5 Height (Inches): 4.00 Weight (Pounds): 119 General Appearance: no apparent distress Objective no change LANDEN CEBALLOS Jan 16, 2018 12:35
[2018-01-16 13:12] LABS: AMYLASE 73 U/L (25-115)
[2018-01-16 13:20] LABS: BASOPHILS % (AUTO) 1.5 % (0.0-2.0); EOSINOPHILS % (AUTO) 7.4 % (0.0-3.0); HEMATOCRIT 26.9 % (42.0-52.0); HEMOGLOBIN 8.6 G/DL (14.2-18.0); LYMPHOCYTES % (AUTO) 23.1 % (20.0-45.0); MEAN CORPUSCULAR VOLUME 104 FL (80-99); MONOCYTES % (AUTO) 14.6 % (1.0-10.0); NEUTROPHILS % (AUTO) 53.4 % (45.0-75.0); PLATELET COUNT 226 K/UL (150-450); RED BLOOD COUNT 2.59 M/UL (4.70-6.10); RED CELL DISTRIBUTION WIDTH 13.4 % (11.6-14.8); WHITE BLOOD COUNT 5.2 K/UL (4.8-10.8)
[2018-01-16 13:45] LABS: ALANINE AMINOTRANSFERASE 21 U/L (12-78); ALBUMIN 2.6 G/DL (3.4-5.0); ALBUMIN/GLOBULIN RATIO 0.8 (1.0-2.7); ALKALINE PHOSPHATASE 123 U/L (46-116); ANION GAP 10 mmol/L (5-15); ASPARTATE AMINO TRANSFERASE 26 U/L (15-37); BILIRUBIN,TOTAL 0.4 MG/DL (0.2-1.0); BLOOD UREA NITROGEN 14 mg/dL (7-18); CALCIUM 6.7 MG/DL (8.5-10.1); CARBON DIOXIDE 18 MMOL/L (21-32); CHLORIDE 102 MMOL/L (98-107); CREATININE 1.5 MG/DL (0.55-1.30); PHOSPHORUS 2.4 MG/DL (2.5-4.9); SODIUM 131 MMOL/L (136-145)
[2018-01-16 13:49] LABS: POTASSIUM 2.7 MMOL/L (3.5-5.1)
[2018-01-16] MEDS ORDERED: NS 500ML ONE (14:09)
[2018-01-16] MEDS ORDERED: Sodium Chloride 500ML 550 ML IV SCH (14:15)
[2018-01-16] MEDS: Potassium Chloride 50 MEQ in Sodium Chloride 500ML 550 ML IVPB SCH ×2 (15:28→21:45)
[2018-01-16] MEDS: Micafungin 100 MG in NS 110 ML IVPB SCH (15:28)
[2018-01-16 16:00] VITALS: BP 126/80
--- NOTE | 2018-01-16 17:43 | Pulmonology Progress Note ---
Assessment/Plan Problems: (1) Dehydration (2) SVT (supraventricular tachycardia) (3) Hypoglycemia (4) Hypokalemia (5) Pain (6) H/O splenectomy (7) History of nephrectomy Assessment/Plan wbc lower all ntoed ID to see TPN pain management K supplement Subjective ROS Limited/Unobtainable: No Allergies: Coded Allergies: MEPERIDINE (Verified Allergy, Severe, 12/25/17) AMPHOTERICIN B (Verified Allergy, Intermediate, 12/25/17) VORICONAZOLE (Verified Allergy, Intermediate, 12/25/17) MORPHINE (Verified Allergy, Unknown, 12/25/17) Uncoded Allergies: CHAVA (Adverse Reaction, Unknown, 12/25/17) Objective Last 24 Hour Vital Signs Date Time Temp Pulse Resp B/P (MAP) Pulse Ox O2 Delivery O2 Flow Rate FiO2 01/16/18 12:00 97.7 55 20 124/88 100 97.7 01/16/18 08:00 98.0 64 20 115/79 100 98.0 01/16/18 07:55 Venturi Mask 12.0 50 01/16/18 07:45 98 Venturi Mask 12.0 50 01/16/18 04:00 98.0 54 20 109/71 95 98.0 01/16/18 00:00 98.1 56 20 128/75 100 98.1 01/15/18 20:00 98.2 61 20 116/80 100 98.2 Intake and Output 01/15/18 01/16/18 19:00 07:00 Intake Total 3620 ml Output Total 2800 ml 5100 ml Balance 820 ml -5100 ml Intake Oral 1680 ml IV Total 1940 ml Output Urine Total 800 ml 600 ml Gastric Drainage Total 2000 ml Other 4500 ml Objective HEENT: atraumatic Neck: full ROM Heart: HR/BP stable Abdomen: soft, active bowel sounds, feeding tube Extremities: no edema Microbiology Date/Time Source Procedure Growth Status 01/14/18 19:40 Blood Blood Culture - Preliminary NO GROWTH AFTER 24 HOURS Resulted 01/14/18 17:50 Blood Blood Culture - Preliminary NO GROWTH AFTER 24 HOURS Resulted Laboratory Tests 01/16/18 12:35: White Blood Count 5.2, Red Blood Count 2.59L, Hemoglobin 8.6L, Hematocrit 26.9L , Mean Corpuscular Volume 104H, Mean Corpuscular Hemoglobin 33.0H, Mean Corpuscular Hemoglobin Concent 31.8L, Red Cell Distribution Width 13.4, Platelet Count 226, Mean Platelet Volume 8.6, Neutrophils (%) (Auto) 53.4, Lymphocytes (%) (Auto) 23.1, Monocytes (%) (Auto) 14.6H, Eosinophils (%) (Auto) 7.4H, Basophils (%) (Auto) 1.5, Sodium Level 131L, Potassium Level 2.7*L, Chloride Level 102, Carbon Dioxide Level 18L, Anion Gap 10, Blood Urea Nitrogen 14, Creatinine 1.5H, Estimat Glomerular Filtration Rate 56.1, Glucose Level 131H , Calcium Level 6.7L, Phosphorus Level 2.4L, Magnesium Level 1.9, Total Bilirubin 0.4, Aspartate Amino Transf (AST/SGOT) 26, Alanine Aminotransferase ( ALT/SGPT) 21, Alkaline Phosphatase 123H, C-Reactive Protein, Quantitative 6.3H, Pro-B-Type Natriuretic Peptide 650H, Total Protein 5.7L, Albumin 2.6L, Globulin 3.1, Albumin/Globulin Ratio 0.8L, Amylase Level 73, Lipase 40L Current Medications Medications (Trade) Dose Ordered Sig/Serenity Route PRN Reason Start Time Stop Time Status Last Admin Dose Admin Acetaminophen (Tylenol) 650 mg Q4H PRN ORAL Mild Pain/Temp > 100.5 01/12/18 13:15 02/08/18 17:14 Ceftriaxone Sodium 1 gm/ Dextrose 55 ml @ 110 mls/hr Q24H IVPB 01/12/18 17:00 01/18/18 16:59 01/15/18 17:02 Chlorhexidine Gluconate (Ashlyn-Hex 2%) 1 applic DAILY@2000 TOPIC 01/12/18 20:00 02/08/18 19:59 01/15/18 20:06 Daptomycin 350 mg/ Sodium Chloride 55 ml @ 100 mls/hr Q24H IV 01/12/18 18:00 01/18/18 17:59 01/15/18 17:48 Dextrose (Dextrose 50%) STAT PRN IV Hypoglycemia 01/12/18 21:00 02/09/18 20:52 Dextrose/Sodium Chloride 1,000 ml @ 200 mls/hr Q5H IV 01/15/18 13:00 02/14/18 12:59 01/16/18 10:39 Diphenhydramine HCl (Benadryl) 25 mg Q6H PRN IVP Itching 01/12/18 16:30 02/10/18 10:29 01/16/18 16:05 Fat Emulsion Intravenous 144 ml/Amino Acids/ Electrolytes/ Dextrose 1,200 ml @ 0 mls/hr Q24H IV 01/16/18 20:00 02/15/18 19:59 Future hold Hydromorphone HCl (Dilaudid) 1 mg Q3H PRN IVP Severe Pain (Pain Scale 7-10) 01/14/18 17:30 01/21/18 17:29 01/16/18 16:05 Insulin Aspart (NovoLOG) Q6HR SUBQ 01/12/18 18:00 02/09/18 17:59 01/16/18 05:49 Lorazepam (Ativan 2mg/ml 1ml) 1 mg Q4H PRN IV For Anxiety 01/12/18 14:00 01/18/18 17:59 Micafungin Sodium 100 mg/Sodium Chloride 110 ml @ 110 mls/hr Q24H IVPB 01/13/18 15:00 01/20/18 14:59 01/16/18 15:28 Mirtazapine (Remeron) 15 mg BEDTIME ORAL 01/12/18 21:00 02/08/18 20:59 01/15/18 19:48 Ondansetron HCl (Zofran) 4 mg Q6H PRN IVP Nausea & Vomiting 01/12/18 15:00 02/08/18 20:55 01/13/18 22:14 Pantoprazole (Protonix) 40 mg Q12HR IVP 01/14/18 09:30 02/12/18 09:29 01/16/18 09:32 Potassium Chloride 50 meq/ Sodium Chloride 575 ml @ 115 mls/hr Q4H IVPB 01/16/18 16:00 01/16/18 23:59 01/16/18 15:28 Temazepam (Restoril) 15 mg HSPRN PRN ORAL Insomnia 01/12/18 21:00 01/17/18 20:55 Wendi Ahmadi MD Jan 16, 2018 17:43
[2018-01-16] MEDS: cefTRIAXone 1 GM in D5W 55 ML IVPB SCH (18:22)
[2018-01-16 20:00] VITALS: BP 131/82
[2018-01-16] MEDS ORDERED: PARENTERAL NUTRITION IV SCH (20:00)
[2018-01-16] MEDS ORDERED: [UNRECOGNIZED DRUG - OTHER] IV SCH (20:00)
[2018-01-16] MEDS: Dyna-Hex 2% Top Sol 2oz TOPIC SCH (20:00)
[2018-01-16] MEDS: DAPTOmycin 350 MG in NS 55 ML IV SCH (20:15)
[2018-01-17] MEDS: NovoLOG Insulin Flexpen SUBQ SCH ×5 (00:13→23:40)
[2018-01-17 00:36] VITALS: BP 137/77
[2018-01-17] MEDS: HYDROmorphone 1mg/ml Carpuject IVP PRN ×7 (01:17→22:01)
[2018-01-17] MEDS: D5NS 1,000 ML IV SCH ×5 (01:18→23:38)
[2018-01-17 04:00] VITALS: BP 116/72
[2018-01-17] MEDS: DiphenhydrAMINE 50mg/ml Inj IVP PRN ×3 (04:18→18:54)
[2018-01-17 08:00] VITALS: BP 109/74
[2018-01-17] MEDS: Pantoprazole Inj IVP SCH ×2 (09:25→21:19)
[2018-01-17 09:41] LABS: BASOPHILS % (AUTO) 1.2 % (0.0-2.0); EOSINOPHILS % (AUTO) 8.2 % (0.0-3.0); HEMOGLOBIN 8.6 G/DL (14.2-18.0); MEAN CORPUSCULAR VOLUME 104 FL (80-99); MONOCYTES % (AUTO) 15.5 % (1.0-10.0); NEUTROPHILS % (AUTO) 48.1 % (45.0-75.0); PLATELET COUNT 236 K/UL (150-450); RED BLOOD COUNT 2.59 M/UL (4.70-6.10); RED CELL DISTRIBUTION WIDTH 14.3 % (11.6-14.8); WHITE BLOOD COUNT 4.7 K/UL (4.8-10.8)
[2018-01-17 10:00] LABS: ANION GAP 5 mmol/L (5-15); BLOOD UREA NITROGEN 18 mg/dL (7-18); CARBON DIOXIDE 21 MMOL/L (21-32); CHLORIDE 115 MMOL/L (98-107); CREATININE 1.6 MG/DL (0.55-1.30); POTASSIUM 4.3 MMOL/L (3.5-5.1); SODIUM 141 MMOL/L (136-145)
[2018-01-17 10:01] LABS: CALCIUM 8.2 MG/DL (8.5-10.1)
[2018-01-17 10:05] LABS: ALANINE AMINOTRANSFERASE 19 U/L (12-78); ALBUMIN 2.5 G/DL (3.4-5.0); ALBUMIN/GLOBULIN RATIO 0.6 (1.0-2.7); ALKALINE PHOSPHATASE 151 U/L (46-116); ASPARTATE AMINO TRANSFERASE 20 U/L (15-37); BILIRUBIN,TOTAL 0.3 MG/DL (0.2-1.0); PHOSPHORUS 2.6 MG/DL (2.5-4.9)
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
[2018-01-17 11:58] VITALS: BP 113/67
--- NOTE | 2018-01-17 13:20 | Nephrology Progress Note ---
Assessment/Plan Problem List: (1) Acute renal failure (ARF) Assessment: cr lowering (2) Intractable vomiting (3) Dehydration (4) Hypokalemia Assessment (1) Acute renal failure cr lowering (2) Dehydration (3) Hypokalemia improving (4) h/o Abdominal pain (5) History of nephrectomy (6) H/O splenectomy Plan Plan: D5NS stop Marinol for vomiting TPN resume Frost down to pain meds Urine studies Monitor renal parameters avoid nephrotoxics Per orders Subjective ROS Limited/Unobtainable: No Constitutional: Reports: malaise Objective Objective Last 24 Hour Vital Signs Date Time Temp Pulse Resp B/P (MAP) Pulse Ox O2 Delivery O2 Flow Rate FiO2 01/17/18 12:57 98.0 01/17/18 12:27 98.0 01/17/18 11:58 98.0 58 18 113/67 98 Nasal Cannula 5.0 98.0 01/17/18 09:26 95.0 01/17/18 08:00 98.7 64 18 109/74 98 Nasal Cannula 5.0 98.7 01/17/18 04:00 95.0 62 20 116/72 99 Nasal Cannula 95.0 01/17/18 00:36 97.7 52 20 137/77 99 Room Air 97.7 01/16/18 20:00 97.4 50 20 131/82 99 Room Air 97.4 01/16/18 19:55 98 Nasal Cannula 3.0 32 01/16/18 19:55 Nasal Cannula 3.0 32 01/16/18 16:00 97.7 56 20 126/80 100 Nasal Cannula 3.0 97.7 Intake and Output 01/16/18 01/17/18 19:00 07:00 Intake Total 1850 ml 500 ml Output Total 9900 ml Balance 1850 ml -9400 ml Intake Oral 340 ml 500 ml IV Total 1510 ml Output Urine Total 400 ml Gastric Drainage Total 9500 ml Laboratory Tests 01/17/18 09:15: White Blood Count 4.7L, Red Blood Count 2.59L, Hemoglobin 8.6L, Hematocrit 27.0L , Mean Corpuscular Volume 104H, Mean Corpuscular Hemoglobin 33.1H, Mean Corpuscular Hemoglobin Concent 31.8L, Red Cell Distribution Width 14.3, Platelet Count 236, Mean Platelet Volume 7.9, Neutrophils (%) (Auto) 48.1, Lymphocytes (%) (Auto) 27.0, Monocytes (%) (Auto) 15.5H, Eosinophils (%) (Auto) 8.2H, Basophils (%) (Auto) 1.2, Sodium Level 141#, Potassium Level 4.3#, Chloride Level 115H, Carbon Dioxide Level 21, Anion Gap 5, Blood Urea Nitrogen 18, Creatinine 1.6H, Estimat Glomerular Filtration Rate 52.1, Glucose Level 62L , Calcium Level 8.2#L, Phosphorus Level 2.6, Magnesium Level 1.7L, Total Bilirubin 0.3, Aspartate Amino Transf (AST/SGOT) 20, Alanine Aminotransferase ( ALT/SGPT) 19, Alkaline Phosphatase 151H, Total Protein 6.4, Albumin 2.5L, Globulin 3.9, Albumin/Globulin Ratio 0.6L Height (Feet): 5 Height (Inches): 4.00 Weight (Pounds): 119 General Appearance: no apparent distress Objective no change LANDEN CEBALLOS Jan 17, 2018 13:19
[2018-01-17] MEDS: Micafungin 100 MG in NS 110 ML IVPB SCH (14:46)
--- NOTE | 2018-01-17 14:59 | Pulmonology Progress Note ---
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 Subjective ROS Limited/Unobtainable: No Allergies: Coded Allergies: MEPERIDINE (Verified Allergy, Severe, 12/25/17) AMPHOTERICIN B (Verified Allergy, Intermediate, 12/25/17) VORICONAZOLE (Verified Allergy, Intermediate, 12/25/17) MORPHINE (Verified Allergy, Unknown, 12/25/17) Uncoded Allergies: CHAVA (Adverse Reaction, Unknown, 12/25/17) Objective Last 24 Hour Vital Signs Date Time Temp Pulse Resp B/P (MAP) Pulse Ox O2 Delivery O2 Flow Rate FiO2 01/17/18 12:57 98.0 01/17/18 12:27 98.0 01/17/18 11:58 98.0 58 18 113/67 98 Nasal Cannula 5.0 98.0 01/17/18 09:26 95.0 01/17/18 08:00 98.7 64 18 109/74 98 Nasal Cannula 5.0 98.7 01/17/18 04:00 95.0 62 20 116/72 99 Nasal Cannula 95.0 01/17/18 00:36 97.7 52 20 137/77 99 Room Air 97.7 01/16/18 20:00 97.4 50 20 131/82 99 Room Air 97.4 01/16/18 19:55 98 Nasal Cannula 3.0 32 01/16/18 19:55 Nasal Cannula 3.0 32 01/16/18 16:00 97.7 56 20 126/80 100 Nasal Cannula 3.0 97.7 Intake and Output 01/16/18 01/17/18 19:00 07:00 Intake Total 1850 ml 500 ml Output Total 9900 ml Balance 1850 ml -9400 ml Intake Oral 340 ml 500 ml IV Total 1510 ml Output Urine Total 400 ml Gastric Drainage Total 9500 ml Objective HEENT: atraumatic Neck: full ROM Heart: HR/BP stable Abdomen: soft, active bowel sounds, feeding tube Extremities: no edema Microbiology Date/Time Source Procedure Growth Status 01/14/18 19:40 Blood Blood Culture - Preliminary NO GROWTH AFTER 48 HOURS Resulted 01/14/18 17:50 Blood Blood Culture - Preliminary NO GROWTH AFTER 48 HOURS Resulted Laboratory Tests 01/17/18 09:15: White Blood Count 4.7L, Red Blood Count 2.59L, Hemoglobin 8.6L, Hematocrit 27.0L , Mean Corpuscular Volume 104H, Mean Corpuscular Hemoglobin 33.1H, Mean Corpuscular Hemoglobin Concent 31.8L, Red Cell Distribution Width 14.3, Platelet Count 236, Mean Platelet Volume 7.9, Neutrophils (%) (Auto) 48.1, Lymphocytes (%) (Auto) 27.0, Monocytes (%) (Auto) 15.5H, Eosinophils (%) (Auto) 8.2H, Basophils (%) (Auto) 1.2, Sodium Level 141#, Potassium Level 4.3#, Chloride Level 115H, Carbon Dioxide Level 21, Anion Gap 5, Blood Urea Nitrogen 18, Creatinine 1.6H, Estimat Glomerular Filtration Rate 52.1, Glucose Level 62L , Calcium Level 8.2#L, Phosphorus Level 2.6, Magnesium Level 1.7L, Total Bilirubin 0.3, Aspartate Amino Transf (AST/SGOT) 20, Alanine Aminotransferase ( ALT/SGPT) 19, Alkaline Phosphatase 151H, Total Protein 6.4, Albumin 2.5L, Globulin 3.9, Albumin/Globulin Ratio 0.6L Current Medications Medications (Trade) Dose Ordered Sig/Serenity Route PRN Reason Start Time Stop Time Status Last Admin Dose Admin Acetaminophen (Tylenol) 650 mg Q4H PRN ORAL Mild Pain/Temp > 100.5 01/12/18 13:15 02/08/18 17:14 Ceftriaxone Sodium 1 gm/ Dextrose 55 ml @ 110 mls/hr Q24H IVPB 01/12/18 17:00 01/18/18 16:59 01/16/18 18:22 Chlorhexidine Gluconate (Ashlyn-Hex 2%) 1 applic DAILY@2000 TOPIC 01/12/18 20:00 02/08/18 19:59 01/15/18 20:06 Daptomycin 350 mg/ Sodium Chloride 55 ml @ 100 mls/hr Q24H IV 01/12/18 18:00 01/18/18 17:59 01/16/18 20:15 Dextrose (Dextrose 50%) STAT PRN IV Hypoglycemia 01/12/18 21:00 02/09/18 20:52 Dextrose/Sodium Chloride 1,000 ml @ 100 mls/hr Q10H IV 01/17/18 13:30 02/16/18 13:29 Diphenhydramine HCl (Benadryl) 50 mg Q6H PRN IVP Itching 01/17/18 14:45 02/16/18 14:44 Fat Emulsion Intravenous 144 ml/Amino Acids/ Electrolytes/ Dextrose 1,200 ml @ 0 mls/hr Q24H IV 01/16/18 20:00 01/17/18 19:59 Future hold 01/16/18 22:02 Fat Emulsion Intravenous 144 ml/Amino Acids/ Electrolytes/ Dextrose 1,200 ml @ 0 mls/hr Q24H IV 01/17/18 20:00 02/16/18 19:59 Hydromorphone HCl (Dilaudid) 1 mg Q3H PRN IVP Severe Pain (Pain Scale 7-10) 01/14/18 17:30 01/21/18 17:29 01/17/18 12:27 Insulin Aspart (NovoLOG) Q6HR SUBQ 01/12/18 18:00 02/09/18 17:59 01/17/18 00:13 Lorazepam (Ativan 2mg/ml 1ml) 1 mg Q4H PRN IV For Anxiety 01/12/18 14:00 01/18/18 17:59 Micafungin Sodium 100 mg/Sodium Chloride 110 ml @ 110 mls/hr Q24H IVPB 01/13/18 15:00 01/20/18 14:59 01/17/18 14:46 Mirtazapine (Remeron) 15 mg BEDTIME ORAL 01/12/18 21:00 02/08/18 20:59 01/16/18 21:44 Ondansetron HCl (Zofran) 4 mg Q6H PRN IVP Nausea & Vomiting 01/12/18 15:00 02/08/18 20:55 01/13/18 22:14 Pantoprazole (Protonix) 40 mg Q12HR IVP 01/14/18 09:30 02/12/18 09:29 01/17/18 09:25 Temazepam (Restoril) 15 mg HSPRN PRN ORAL Insomnia 01/12/18 21:00 01/17/18 20:55 Wendi Ahmadi MD Jan 17, 2018 14:59
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
[2018-01-17 16:00] VITALS: BP 131/84
[2018-01-17] MEDS: cefTRIAXone 1 GM in D5W 55 ML IVPB SCH (17:34)
[2018-01-17] MEDS: DAPTOmycin 350 MG in NS 55 ML IV SCH (18:57)
[2018-01-17 20:00] VITALS: BP 121/79
[2018-01-17] MEDS ORDERED: PARENTERAL NUTRITION IV SCH (20:00)
[2018-01-17] MEDS: Dyna-Hex 2% Top Sol 2oz TOPIC SCH (20:00)
[2018-01-17] MEDS ORDERED: [UNRECOGNIZED DRUG - OTHER] IV SCH (20:00)
[2018-01-18] VITALS: BP 113/73
[2018-01-18] MEDS: DiphenhydrAMINE 50mg/ml Inj IVP PRN ×4 (01:27→20:29)
[2018-01-18] MEDS: HYDROmorphone 1mg/ml Carpuject IVP PRN ×8 (01:27→23:35)
[2018-01-18 04:00] VITALS: BP 113/72
[2018-01-18] MEDS: NovoLOG Insulin Flexpen SUBQ SCH ×3 (06:00→17:42)
[2018-01-18 08:00] VITALS: BP 122/80
[2018-01-18] MEDS: D5NS 1,000 ML IV SCH ×3 (08:17→19:30)
[2018-01-18] MEDS: Pantoprazole Inj IVP SCH ×2 (09:16→20:42)
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
[2018-01-18 10:46] LABS: BASOPHILS % (AUTO) 1.3 % (0.0-2.0); EOSINOPHILS % (AUTO) 6.4 % (0.0-3.0); HEMATOCRIT 26.1 % (42.0-52.0); HEMOGLOBIN 8.4 G/DL (14.2-18.0); MEAN CORPUSCULAR VOLUME 105 FL (80-99); MONOCYTES % (AUTO) 15.3 % (1.0-10.0); PLATELET COUNT 242 K/UL (150-450); RED BLOOD COUNT 2.49 M/UL (4.70-6.10); RED CELL DISTRIBUTION WIDTH 13.7 % (11.6-14.8)
[2018-01-18 11:03] LABS: ANION GAP 13 mmol/L (5-15); BLOOD UREA NITROGEN 19 mg/dL (7-18); CALCIUM 8.1 MG/DL (8.5-10.1); CARBON DIOXIDE 16 MMOL/L (21-32); CHLORIDE 112 MMOL/L (98-107); CREATININE 1.3 MG/DL (0.55-1.30); PHOSPHORUS 3.5 MG/DL (2.5-4.9); POTASSIUM 3.8 MMOL/L (3.5-5.1); SODIUM 141 MMOL/L (136-145)
[2018-01-18] MEDS ORDERED: Cathflo Alteplase 2mg Inj INJ ONE (11:30)
--- NOTE | 2018-01-18 12:49 | Nephrology Progress Note ---
Assessment/Plan Problem List: (1) Acute renal failure (ARF) Assessment: cr lowering (2) Intractable vomiting (3) Dehydration (4) Hypokalemia Assessment Mag low (1) Acute renal failure cr lowering (2) Dehydration (3) Hypokalemia improving (4) h/o Abdominal pain (5) History of nephrectomy (6) H/O splenectomy Plan Plan: Mag IV 6 grams D5NS stop Marinol for vomiting TPN resume Frost down to pain meds Urine studies Monitor renal parameters avoid nephrotoxics Per orders Subjective ROS Limited/Unobtainable: No Constitutional: Reports: malaise Objective Objective Last 24 Hour Vital Signs Date Time Temp Pulse Resp B/P (MAP) Pulse Ox O2 Delivery O2 Flow Rate FiO2 01/18/18 09:47 Nasal Cannula 2.0 28 01/18/18 09:47 99 Nasal Cannula 2.0 28 01/18/18 08:00 98.6 57 20 122/80 98 98.6 01/18/18 04:00 98.3 61 20 113/72 100 98.3 01/18/18 00:00 98.4 59 20 113/73 100 98.4 01/17/18 20:00 98.8 58 20 121/79 100 98.8 01/17/18 19:30 Nasal Cannula 2.0 28 01/17/18 19:30 98 Nasal Cannula 2.0 28 01/17/18 19:24 97.6 01/17/18 18:54 97.6 01/17/18 16:00 97.6 53 20 131/84 100 Nasal Cannula 5.0 97.6 01/17/18 15:26 98.0 Intake and Output 01/17/18 01/18/18 19:00 07:00 Intake Total 1470.0 ml Output Total 3800 ml Balance 1470.0 ml -3800 ml IV Total 1470.0 ml Output Urine Total 800 ml Other 3000 ml # Voids 3 Laboratory Tests 01/18/18 10:10: White Blood Count 5.0, Red Blood Count 2.49L, Hemoglobin 8.4L, Hematocrit 26.1L , Mean Corpuscular Volume 105H, Mean Corpuscular Hemoglobin 33.7H, Mean Corpuscular Hemoglobin Concent 32.2, Red Cell Distribution Width 13.7, Platelet Count 242, Mean Platelet Volume 7.9, Neutrophils (%) (Auto) 46.0, Lymphocytes (% ) (Auto) 31.0, Monocytes (%) (Auto) 15.3H, Eosinophils (%) (Auto) 6.4H, Basophils (%) (Auto) 1.3, Sodium Level 141, Potassium Level 3.8, Chloride Level 112H, Carbon Dioxide Level 16L, Anion Gap 13, Blood Urea Nitrogen 19H, Creatinine 1.3, Estimat Glomerular Filtration Rate > 60, Glucose Level 109H, Calcium Level 8.1L, Phosphorus Level 3.5, Magnesium Level 1.1L Height (Feet): 5 Height (Inches): 4.00 Weight (Pounds): 119 General Appearance: no apparent distress Objective no change LANDEN CEBALLOS 16, 2018 12:49
--- NOTE | 2018-01-18 14:49 | Pulmonology Progress Note ---
Assessment/Plan Problems: (1) Dehydration (2) SVT (supraventricular tachycardia) (3) Hypoglycemia (4) Hypokalemia (5) Pain (6) H/O splenectomy (7) History of nephrectomy Assessment/Plan no new complains all ntoed ID to see TPN pain management symptomatic treatment. dc planning to snif or alf facility Subjective ROS Limited/Unobtainable: No Constitutional: Reports: no symptoms HEENT: Repors: no symptoms Respiratory: Reports: no symptoms Allergies: Coded Allergies: MEPERIDINE (Verified Allergy, Severe, 12/25/17) AMPHOTERICIN B (Verified Allergy, Intermediate, 12/25/17) VORICONAZOLE (Verified Allergy, Intermediate, 12/25/17) MORPHINE (Verified Allergy, Unknown, 12/25/17) Uncoded Allergies: CHAVA (Adverse Reaction, Unknown, 12/25/17) Objective Last 24 Hour Vital Signs Date Time Temp Pulse Resp B/P (MAP) Pulse Ox O2 Delivery O2 Flow Rate FiO2 01/18/18 09:47 Nasal Cannula 2.0 28 01/18/18 09:47 99 Nasal Cannula 2.0 28 01/18/18 08:00 98.6 57 20 122/80 98 98.6 01/18/18 04:00 98.3 61 20 113/72 100 98.3 01/18/18 00:00 98.4 59 20 113/73 100 98.4 01/17/18 20:00 98.8 58 20 121/79 100 98.8 01/17/18 19:30 Nasal Cannula 2.0 28 01/17/18 19:30 98 Nasal Cannula 2.0 28 01/17/18 19:24 97.6 01/17/18 18:54 97.6 01/17/18 16:00 97.6 53 20 131/84 100 Nasal Cannula 5.0 97.6 01/17/18 15:26 98.0 Intake and Output 01/17/18 01/18/18 19:00 07:00 Intake Total 1470.0 ml Output Total 3800 ml Balance 1470.0 ml -3800 ml IV Total 1470.0 ml Output Urine Total 800 ml Other 3000 ml # Voids 3 Objective HEENT: atraumatic Neck: full ROM Heart: HR/BP stable Abdomen: soft, active bowel sounds, feeding tube Extremities: no edema Laboratory Tests 01/18/18 10:10: White Blood Count 5.0, Red Blood Count 2.49L, Hemoglobin 8.4L, Hematocrit 26.1L , Mean Corpuscular Volume 105H, Mean Corpuscular Hemoglobin 33.7H, Mean Corpuscular Hemoglobin Concent 32.2, Red Cell Distribution Width 13.7, Platelet Count 242, Mean Platelet Volume 7.9, Neutrophils (%) (Auto) 46.0, Lymphocytes (% ) (Auto) 31.0, Monocytes (%) (Auto) 15.3H, Eosinophils (%) (Auto) 6.4H, Basophils (%) (Auto) 1.3, Sodium Level 141, Potassium Level 3.8, Chloride Level 112H, Carbon Dioxide Level 16L, Anion Gap 13, Blood Urea Nitrogen 19H, Creatinine 1.3, Estimat Glomerular Filtration Rate > 60, Glucose Level 109H, Calcium Level 8.1L, Phosphorus Level 3.5, Magnesium Level 1.1L Current Medications Medications (Trade) Dose Ordered Sig/Serenity Route PRN Reason Start Time Stop Time Status Last Admin Dose Admin Acetaminophen (Tylenol) 650 mg Q4H PRN ORAL Mild Pain/Temp > 100.5 01/12/18 13:15 02/08/18 17:14 Chlorhexidine Gluconate (Ashlyn-Hex 2%) 1 applic DAILY@2000 TOPIC 01/12/18 20:00 02/08/18 19:59 01/15/18 20:06 Daptomycin 350 mg/ Sodium Chloride 55 ml @ 100 mls/hr Q24H IV 01/12/18 18:00 01/18/18 17:59 01/17/18 18:57 Dextrose (Dextrose 50%) STAT PRN IV Hypoglycemia 01/12/18 21:00 02/09/18 20:52 Dextrose/Sodium Chloride 1,000 ml @ 100 mls/hr Q10H IV 01/17/18 13:30 02/16/18 13:29 01/17/18 23:38 Diphenhydramine HCl (Benadryl) 50 mg Q6H PRN IVP Itching 01/17/18 14:45 02/16/18 14:44 01/18/18 13:59 Fat Emulsion Intravenous 144 ml/Amino Acids/ Electrolytes/ Dextrose 1,200 ml @ 0 mls/hr Q24H IV 01/17/18 20:00 01/18/18 19:59 01/17/18 20:00 Fat Emulsion Intravenous 144 ml/Amino Acids/ Electrolytes/ Dextrose 1,200 ml @ 0 mls/hr Q24H IV 01/18/18 20:00 02/17/18 19:59 Hydromorphone HCl (Dilaudid) 1 mg Q3H PRN IVP Severe Pain (Pain Scale 7-10) 01/14/18 17:30 01/21/18 17:29 01/18/18 13:58 Insulin Aspart (NovoLOG) Q6HR SUBQ 01/12/18 18:00 02/09/18 17:59 01/17/18 00:13 Lorazepam (Ativan 2mg/ml 1ml) 1 mg Q4H PRN IV For Anxiety 01/12/18 14:00 01/18/18 17:59 Magnesium Sulfate 100 ml @ 100 mls/hr Q1H IVPB 01/18/18 12:45 01/18/18 18:44 01/18/18 13:47 Mirtazapine (Remeron) 15 mg BEDTIME ORAL 01/12/18 21:00 02/08/18 20:59 01/17/18 21:19 Ondansetron HCl (Zofran) 4 mg Q6H PRN IVP Nausea & Vomiting 01/12/18 15:00 02/08/18 20:55 01/13/18 22:14 Pantoprazole (Protonix) 40 mg Q12HR IVP 01/14/18 09:30 02/12/18 09:29 01/18/18 09:16 Wendi Ahmadi MD Jan 18, 2018 14:49
[2018-01-18 16:00] VITALS: BP 117/78
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
[2018-01-18 20:00] VITALS: BP 116/71
[2018-01-18] MEDS: Dyna-Hex 2% Top Sol 2oz TOPIC SCH (20:43)
[2018-01-18] MEDS: PARENTERAL NUTRITION IV SCH (20:51)
[2018-01-18] MEDS: [UNRECOGNIZED DRUG - OTHER] IV SCH (20:51)
[2018-01-19] VITALS: BP 116/67
[2018-01-19] MEDS: DiphenhydrAMINE 50mg/ml Inj IVP PRN ×4 (02:40→21:21)
[2018-01-19] MEDS: HYDROmorphone 1mg/ml Carpuject IVP PRN ×7 (02:41→21:22)
[2018-01-19 04:50] VITALS: BP 141/73
[2018-01-19] MEDS: D5NS 1,000 ML IV SCH ×2 (05:08→15:30)
[2018-01-19] MEDS: NovoLOG Insulin Flexpen SUBQ SCH ×4 (06:00→18:00)
[2018-01-19 08:00] VITALS: BP 109/70
[2018-01-19 09:16] LABS: BASOPHILS % (AUTO) 1.4 % (0.0-2.0); EOSINOPHILS % (AUTO) 2.2 % (0.0-3.0); HEMATOCRIT 26.7 % (42.0-52.0); HEMOGLOBIN 8.6 G/DL (14.2-18.0); LYMPHOCYTES % (AUTO) 13.2 % (20.0-45.0); MEAN CORPUSCULAR VOLUME 103 FL (80-99); MONOCYTES % (AUTO) 12.3 % (1.0-10.0); NEUTROPHILS % (AUTO) 70.9 % (45.0-75.0); PLATELET COUNT 267 K/UL (150-450); RED BLOOD COUNT 2.59 M/UL (4.70-6.10); RED CELL DISTRIBUTION WIDTH 13.2 % (11.6-14.8); WHITE BLOOD COUNT 10.1 K/UL (4.8-10.8)
[2018-01-19] MEDS: Pantoprazole Inj IVP SCH ×2 (09:17→20:19)
[2018-01-19 09:42] LABS: ANION GAP 10 mmol/L (5-15); BLOOD UREA NITROGEN 18 mg/dL (7-18); CALCIUM 8.1 MG/DL (8.5-10.1); CARBON DIOXIDE 22 MMOL/L (21-32); CHLORIDE 107 MMOL/L (98-107); CREATININE 1.2 MG/DL (0.55-1.30); PHOSPHORUS 3.5 MG/DL (2.5-4.9); POTASSIUM 3.4 MMOL/L (3.5-5.1); SODIUM 139 MMOL/L (136-145)
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
[2018-01-19 12:00] VITALS: BP 128/63
--- NOTE | 2018-01-19 12:01 | Nephrology Progress Note ---
Assessment/Plan Problem List: (1) Acute renal failure (ARF) Assessment: cr lowering (2) Intractable vomiting (3) Dehydration (4) Hypokalemia Assessment Mag low corrected (1) Acute renal failure cr lowering (2) Dehydration (3) Hypokalemia improving (4) h/o Abdominal pain (5) History of nephrectomy (6) H/O splenectomy Plan Plan: K supp today D5NS stop Marinol for vomiting TPN resume Frost down to pain meds Urine studies Monitor renal parameters avoid nephrotoxics Per orders Subjective ROS Limited/Unobtainable: No Objective Objective Last 24 Hour Vital Signs Date Time Temp Pulse Resp B/P (MAP) Pulse Ox O2 Delivery O2 Flow Rate FiO2 01/19/18 09:47 98.6 01/19/18 09:17 98.6 01/19/18 08:00 98.6 63 22 109/70 97 Nasal Cannula 2.0 98.6 01/19/18 04:50 97.9 59 18 141/73 99 Nasal Cannula 2.0 97.9 01/19/18 00:00 98.7 54 20 116/67 98 Nasal Cannula 2.0 98.7 01/18/18 20:00 98.1 60 18 116/71 98 Nasal Cannula 2.0 98.1 01/18/18 19:00 Nasal Cannula 2.0 28 01/18/18 19:00 98 Nasal Cannula 2.0 28 01/18/18 16:00 98.7 85 20 117/78 98 98.7 Intake and Output 01/18/18 01/19/18 19:00 07:00 Intake Total 2320 ml 1847.5 ml Output Total 2200 ml 1700 ml Balance 120 ml 147.5 ml Intake Oral 2320 ml IV Total 1847.5 ml Output Urine Total 1000 ml 400 ml Stool Total 1200 ml Other 1300 ml Laboratory Tests 01/19/18 08:47: White Blood Count 10.1#, Red Blood Count 2.59L, Hemoglobin 8.6L, Hematocrit 26.7L, Mean Corpuscular Volume 103H, Mean Corpuscular Hemoglobin 33.1H, Mean Corpuscular Hemoglobin Concent 32.1, Red Cell Distribution Width 13.2, Platelet Count 267, Mean Platelet Volume 8.2, Neutrophils (%) (Auto) 70.9, Lymphocytes (% ) (Auto) 13.2L, Monocytes (%) (Auto) 12.3H, Eosinophils (%) (Auto) 2.2, Basophils (%) (Auto) 1.4, Sodium Level 139, Potassium Level 3.4L, Chloride Level 107, Carbon Dioxide Level 22, Anion Gap 10, Blood Urea Nitrogen 18, Creatinine 1.2, Estimat Glomerular Filtration Rate > 60, Glucose Level 88, Calcium Level 8.1L, Phosphorus Level 3.5, Magnesium Level 2.0 Height (Feet): 5 Height (Inches): 4.00 Weight (Pounds): 119 General Appearance: no apparent distress Objective no change LANDEN CEBALLOS 17, 2018 12:01
[2018-01-19] MEDS ORDERED: Potassium Chloride 40 MEQ in Sodium Chloride 500ML 550 ML IVPB ONE (13:30)
--- NOTE | 2018-01-19 14:12 | Pulmonology Progress Note ---
Assessment/Plan Problems: (1) Dehydration (2) SVT (supraventricular tachycardia) (3) Hypoglycemia (4) Hypokalemia (5) Pain (6) H/O splenectomy (7) History of nephrectomy Assessment/Plan no new complains all ntoed ID to see TPN pain management symptomatic treatment. dc planning to snif or halfway facility Subjective ROS Limited/Unobtainable: No Constitutional: Reports: no symptoms HEENT: Repors: no symptoms Allergies: Coded Allergies: MEPERIDINE (Verified Allergy, Severe, 12/25/17) AMPHOTERICIN B (Verified Allergy, Intermediate, 12/25/17) VORICONAZOLE (Verified Allergy, Intermediate, 12/25/17) MORPHINE (Verified Allergy, Unknown, 12/25/17) Uncoded Allergies: CHAVA (Adverse Reaction, Unknown, 12/25/17) Objective Last 24 Hour Vital Signs Date Time Temp Pulse Resp B/P (MAP) Pulse Ox O2 Delivery O2 Flow Rate FiO2 01/19/18 12:41 98.6 01/19/18 12:11 98.6 01/19/18 12:00 99.0 72 23 128/63 96 Nasal Cannula 2.0 99.0 01/19/18 09:17 98.6 01/19/18 08:00 98.6 63 22 109/70 97 Nasal Cannula 2.0 98.6 01/19/18 04:50 97.9 59 18 141/73 99 Nasal Cannula 2.0 97.9 01/19/18 00:00 98.7 54 20 116/67 98 Nasal Cannula 2.0 98.7 01/18/18 20:00 98.1 60 18 116/71 98 Nasal Cannula 2.0 98.1 01/18/18 19:00 Nasal Cannula 2.0 28 01/18/18 19:00 98 Nasal Cannula 2.0 28 01/18/18 16:00 98.7 85 20 117/78 98 98.7 Intake and Output 01/18/18 01/19/18 19:00 07:00 Intake Total 2320 ml 1847.5 ml Output Total 2200 ml 1700 ml Balance 120 ml 147.5 ml Intake Oral 2320 ml IV Total 1847.5 ml Output Urine Total 1000 ml 400 ml Stool Total 1200 ml Other 1300 ml Objective HEENT: atraumatic Neck: full ROM Heart: HR/BP stable Abdomen: soft, active bowel sounds, feeding tube Extremities: no edema Laboratory Tests 01/19/18 08:47: White Blood Count 10.1#, Red Blood Count 2.59L, Hemoglobin 8.6L, Hematocrit 26.7L, Mean Corpuscular Volume 103H, Mean Corpuscular Hemoglobin 33.1H, Mean Corpuscular Hemoglobin Concent 32.1, Red Cell Distribution Width 13.2, Platelet Count 267, Mean Platelet Volume 8.2, Neutrophils (%) (Auto) 70.9, Lymphocytes (% ) (Auto) 13.2L, Monocytes (%) (Auto) 12.3H, Eosinophils (%) (Auto) 2.2, Basophils (%) (Auto) 1.4, Sodium Level 139, Potassium Level 3.4L, Chloride Level 107, Carbon Dioxide Level 22, Anion Gap 10, Blood Urea Nitrogen 18, Creatinine 1.2, Estimat Glomerular Filtration Rate > 60, Glucose Level 88, Calcium Level 8.1L, Phosphorus Level 3.5, Magnesium Level 2.0 Current Medications Medications (Trade) Dose Ordered Sig/Serenity Route PRN Reason Start Time Stop Time Status Last Admin Dose Admin Acetaminophen (Tylenol) 650 mg Q4H PRN ORAL Mild Pain/Temp > 100.5 01/12/18 13:15 02/08/18 17:14 Chlorhexidine Gluconate (Ashlyn-Hex 2%) 1 applic DAILY@2000 TOPIC 01/12/18 20:00 02/08/18 19:59 01/18/18 20:43 Dextrose (Dextrose 50%) STAT PRN IV Hypoglycemia 01/12/18 21:00 02/09/18 20:52 Dextrose/Sodium Chloride 1,000 ml @ 100 mls/hr Q10H IV 01/17/18 13:30 02/16/18 13:29 01/19/18 05:08 Diphenhydramine HCl (Benadryl) 50 mg Q6H PRN IVP Itching 01/17/18 14:45 02/16/18 14:44 01/19/18 09:17 Fat Emulsion Intravenous 144 ml/Amino Acids/ Electrolytes/ Dextrose 1,200 ml @ 0 mls/hr Q24H IV 01/18/18 20:00 02/17/18 19:59 01/18/18 20:51 Hydromorphone HCl (Dilaudid) 1 mg Q3H PRN IVP Severe Pain (Pain Scale 7-10) 01/14/18 17:30 01/21/18 17:29 01/19/18 12:11 Insulin Aspart (NovoLOG) Q6HR SUBQ 01/12/18 18:00 02/09/18 17:59 01/17/18 00:13 Mirtazapine (Remeron) 15 mg BEDTIME ORAL 01/12/18 21:00 02/08/18 20:59 01/18/18 20:43 Ondansetron HCl (Zofran) 4 mg Q6H PRN IVP Nausea & Vomiting 01/12/18 15:00 02/08/18 20:55 01/13/18 22:14 Pantoprazole (Protonix) 40 mg Q12HR IVP 01/14/18 09:30 02/12/18 09:29 01/19/18 09:17 Potassium Chloride 40 meq/ Sodium Chloride 570 ml @ 142.5 mls/ hr ONCE ONCE IVPB 01/19/18 13:30 01/19/18 17:29 Wendi Ahmadi MD Jan 19, 2018 14:12
[2018-01-19] MEDS ORDERED: D5NS 1000ml IV ONE (15:15)
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
[2018-01-19 20:00] VITALS: BP 125/79
[2018-01-19] MEDS: [UNRECOGNIZED DRUG - OTHER] IV SCH (20:11)
[2018-01-19] MEDS: PARENTERAL NUTRITION IV SCH (20:11)
[2018-01-19] MEDS: Dyna-Hex 2% Top Sol 2oz TOPIC SCH (20:19)
[2018-01-20] VITALS: BP 126/78
[2018-01-20] MEDS: D5NS 1,000 ML IV SCH ×3 (00:14→18:30)
[2018-01-20] MEDS: HYDROmorphone 1mg/ml Carpuject IVP PRN ×8 (00:22→22:03)
[2018-01-20] MEDS: DiphenhydrAMINE 50mg/ml Inj IVP PRN ×4 (03:28→22:03)
[2018-01-20 04:00] VITALS: BP 106/65
[2018-01-20] MEDS: NovoLOG Insulin Flexpen SUBQ SCH ×4 (06:00→18:00)
[2018-01-20 08:00] VITALS: BP 117/75
[2018-01-20 09:16] LABS: ANION GAP 4 mmol/L (5-15); BLOOD UREA NITROGEN 19 mg/dL (7-18); CALCIUM 7.2 MG/DL (8.5-10.1); CARBON DIOXIDE 22 MMOL/L (21-32); CHLORIDE 116 MMOL/L (98-107); CREATININE 1.1 MG/DL (0.55-1.30); POTASSIUM 3.4 MMOL/L (3.5-5.1); SODIUM 142 MMOL/L (136-145)
[2018-01-20] MEDS: Pantoprazole Inj IVP SCH ×2 (09:55→21:37)
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
[2018-01-20 12:00] VITALS: BP 144/87
[2018-01-20] MEDS: Magnesium Sulfate 1gm/100ml IVPB SCH ×3 (12:56→15:59)
[2018-01-20] MEDS ORDERED: Promethazine/Codeine 5ml UD ORAL PRN (13:30)
[2018-01-20] MEDS ORDERED: Potassium Chloride 20 MEQ/ NS 275 ML IVPB ONE ×2 (14:00)
[2018-01-20] MEDS ORDERED: Promethazine Plain 6.25mg/5ml ORAL PRN (14:30)
[2018-01-20] MEDS ORDERED: Potassium Chloride 50 MEQ in Sodium Chloride 500ML 550 ML IVPB ONE (14:30)
--- NOTE | 2018-01-20 17:35 | Nephrology Progress Note ---
Assessment/Plan Problem List: (1) Acute renal failure (ARF) Assessment: cr lowering (2) Intractable vomiting (3) Dehydration (4) Hypokalemia Assessment Mag low corrected (1) Acute renal failure cr lowering (2) Dehydration (3) Hypokalemia improving (4) h/o Abdominal pain (5) History of nephrectomy (6) H/O splenectomy Plan Plan: K & Mag supp today TPN down to pain meds Urine studies Monitor renal parameters avoid nephrotoxics Per orders Subjective ROS Limited/Unobtainable: No Objective Objective Last 24 Hour Vital Signs Date Time Temp Pulse Resp B/P (MAP) Pulse Ox O2 Delivery O2 Flow Rate FiO2 01/20/18 15:59 96.9 01/20/18 13:26 96.9 01/20/18 12:56 96.9 01/20/18 12:00 96.9 84 18 144/87 100 Room Air 96.9 01/20/18 09:55 97.9 01/20/18 08:00 97.9 53 20 117/75 98 Room Air 97.9 01/20/18 04:00 99 Room Air 01/20/18 04:00 98.5 60 21 106/65 99 98.5 01/20/18 00:00 95 Room Air 01/20/18 00:00 98.5 60 21 126/78 93 98.5 01/19/18 20:00 99 Room Air 01/19/18 20:00 98.2 51 21 125/79 99 98.2 01/19/18 18:11 98.6 Intake and Output 01/19/18 01/20/18 19:00 07:00 Intake Total 1659.0 ml 3247.5 ml Output Total 6305 ml Balance 1659.0 ml -3057.5 ml Intake Oral 1800 ml IV Total 1659.0 ml 1447.5 ml Other 6305 ml # Voids 2 # Bowel Movements 1 Laboratory Tests 01/20/18 05:15: Sodium Level 142, Potassium Level 3.4L, Chloride Level 116H, Carbon Dioxide Level 22, Anion Gap 4L, Blood Urea Nitrogen 19H, Creatinine 1.1, Estimat Glomerular Filtration Rate > 60, Glucose Level 371#H, Calcium Level 7.2L, Phosphorus Level 3.0, Magnesium Level 1.4L Height (Feet): 5 Height (Inches): 4.00 Weight (Pounds): 119 General Appearance: no apparent distress Objective no change LANDEN CEBALLOS Jan 20, 2018 17:35
[2018-01-20] MEDS ORDERED: POTASSIUM CHLORIDE IVPB ONE ×2 (18:00)
[2018-01-20] MEDS ORDERED: NS IVPB ONE ×2 (18:00)
[2018-01-20 20:00] VITALS: BP 123/73
--- NOTE | 2018-01-20 21:29 | Pulmonology Progress Note ---
Assessment/Plan Problems: (1) Dehydration (2) SVT (supraventricular tachycardia) (3) Hypoglycemia (4) Hypokalemia (5) Pain (6) H/O splenectomy (7) History of nephrectomy Assessment/Plan no new complains all ntoed ID to see TPN pain management symptomatic treatment. dc planning to [facility] or [facility] facility Subjective ROS Limited/Unobtainable: No Allergies: Coded Allergies: MEPERIDINE (Verified Allergy, Severe, 12/25/17) AMPHOTERICIN B (Verified Allergy, Intermediate, 12/25/17) VORICONAZOLE (Verified Allergy, Intermediate, 12/25/17) MORPHINE (Verified Allergy, Unknown, 12/25/17) Uncoded Allergies: CHAVA (Adverse Reaction, Unknown, 12/25/17) Objective Last 24 Hour Vital Signs Date Time Temp Pulse Resp B/P (MAP) Pulse Ox O2 Delivery O2 Flow Rate FiO2 01/20/18 20:00 97.9 60 20 123/73 100 97.9 01/20/18 19:31 96.9 01/20/18 19:01 96.9 01/20/18 15:59 96.9 01/20/18 12:56 96.9 01/20/18 12:00 96.9 84 18 144/87 100 Room Air 96.9 01/20/18 09:55 97.9 01/20/18 08:00 97.9 53 20 117/75 98 Room Air 97.9 01/20/18 04:00 99 Room Air 01/20/18 04:00 98.5 60 21 106/65 99 98.5 01/20/18 00:00 95 Room Air 01/20/18 00:00 98.5 60 21 126/78 93 98.5 Intake and Output 01/19/18 01/20/18 19:00 07:00 Intake Total 1659.0 ml 3247.5 ml Output Total 6305 ml Balance 1659.0 ml -3057.5 ml Intake Oral 1800 ml IV Total 1659.0 ml 1447.5 ml Other 6305 ml # Voids 2 # Bowel Movements 1 Objective HEENT: atraumatic Neck: full ROM Heart: HR/BP stable Abdomen: soft, active bowel sounds, feeding tube Extremities: no edema Laboratory Tests 01/20/18 05:15: Sodium Level 142, Potassium Level 3.4L, Chloride Level 116H, Carbon Dioxide Level 22, Anion Gap 4L, Blood Urea Nitrogen 19H, Creatinine 1.1, Estimat Glomerular Filtration Rate > 60, Glucose Level 371#H, Calcium Level 7.2L, Phosphorus Level 3.0, Magnesium Level 1.4L Current Medications Medications (Trade) Dose Ordered Sig/Serenity Route PRN Reason Start Time Stop Time Status Last Admin Dose Admin Acetaminophen (Tylenol) 650 mg Q4H PRN ORAL Mild Pain/Temp > 100.5 01/12/18 13:15 02/08/18 17:14 Chlorhexidine Gluconate (Ashlyn-Hex 2%) 1 applic DAILY@2000 TOPIC 01/12/18 20:00 02/08/18 19:59 01/19/18 20:19 Dextrose (Dextrose 50%) STAT PRN IV Hypoglycemia 01/12/18 21:00 02/09/18 20:52 Dextrose/Sodium Chloride 1,000 ml @ 75 mls/hr [id number] IV 01/20/18 18:30 02/19/18 18:29 Diphenhydramine HCl (Benadryl) 50 mg Q6H PRN IVP Itching 01/17/18 14:45 02/16/18 14:44 01/20/18 15:59 Fat Emulsion Intravenous 144 ml/Amino Acids/ Electrolytes/ Dextrose 1,200 ml @ 0 mls/hr Q24H IV 01/18/18 20:00 02/17/18 19:59 01/19/18 20:11 Hydromorphone HCl (Dilaudid) 1 mg Q3H PRN IVP Severe Pain (Pain Scale 7-10) 01/14/18 17:30 01/21/18 17:29 01/20/18 19:01 Insulin Aspart (NovoLOG) Q6HR SUBQ 01/12/18 18:00 02/09/18 17:59 01/17/18 00:13 Mirtazapine (Remeron) 15 mg BEDTIME ORAL 01/12/18 21:00 02/08/18 20:59 01/19/18 20:19 Ondansetron HCl (Zofran) 4 mg Q6H PRN IVP Nausea & Vomiting 01/12/18 15:00 02/08/18 20:55 01/13/18 22:14 Pantoprazole (Protonix) 40 mg Q12HR IVP 01/14/18 09:30 02/12/18 09:29 01/20/18 09:55 Promethazine HCl (Phenergan Plain) 6.25 mg Q6H PRN ORAL For Cough 01/20/18 14:30 02/19/18 14:29 01/20/18 15:58 Wendi Ahmadi MD Jan 20, 2018 21:29
[2018-01-20] MEDS: Dyna-Hex 2% Top Sol 2oz TOPIC SCH (21:37)
[2018-01-20] MEDS: PARENTERAL NUTRITION IV SCH (21:39)
[2018-01-20] MEDS: [UNRECOGNIZED DRUG - OTHER] IV SCH (21:39)
[2018-01-21] VITALS: BP 124/78
[2018-01-21] MEDS: HYDROmorphone 1mg/ml Carpuject IVP PRN ×8 (01:16→23:01)
[2018-01-21 04:00] VITALS: BP 120/73
[2018-01-21] MEDS: DiphenhydrAMINE 50mg/ml Inj IVP PRN ×4 (04:31→23:01)
[2018-01-21] MEDS: D5NS 1,000 ML IV SCH ×2 (04:37→21:55)
[2018-01-21] MEDS: NovoLOG Insulin Flexpen SUBQ SCH ×4 (06:00→18:00)
[2018-01-21] MEDS: Pantoprazole Inj IVP SCH ×2 (07:39→21:50)
[2018-01-21 08:00] VITALS: BP 109/70
[2018-01-21 08:38] LABS: ALANINE AMINOTRANSFERASE 16 U/L (12-78); ALBUMIN 2.5 G/DL (3.4-5.0); ALBUMIN/GLOBULIN RATIO 0.7 (1.0-2.7); ALKALINE PHOSPHATASE 174 U/L (46-116); ANION GAP 10 mmol/L (5-15); ASPARTATE AMINO TRANSFERASE 21 U/L (15-37); BILIRUBIN,TOTAL 0.3 MG/DL (0.2-1.0); BLOOD UREA NITROGEN 17 mg/dL (7-18); CALCIUM 7.5 MG/DL (8.5-10.1); CARBON DIOXIDE 21 MMOL/L (21-32); CHLORIDE 112 MMOL/L (98-107); POTASSIUM 3.6 MMOL/L (3.5-5.1); SODIUM 143 MMOL/L (136-145)
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
[2018-01-21 12:00] VITALS: BP 127/64
--- NOTE | 2018-01-21 15:30 | Nephrology Progress Note ---
Assessment/Plan Problem List: (1) Acute renal failure (ARF) Assessment: cr lowering (2) Intractable vomiting (3) Dehydration (4) Hypokalemia Assessment Mag low corrected (1) Acute renal failure cr lowering (2) Dehydration (3) Hypokalemia improving (4) h/o Abdominal pain (5) History of nephrectomy (6) H/O splenectomy Plan Plan: K & Mag supp today TPN down to pain meds Urine studies Monitor renal parameters avoid nephrotoxics Per orders Subjective ROS Limited/Unobtainable: No Objective Objective Last 24 Hour Vital Signs Date Time Temp Pulse Resp B/P (MAP) Pulse Ox O2 Delivery O2 Flow Rate FiO2 01/21/18 14:15 97.3 01/21/18 13:45 97.3 01/21/18 12:00 97.3 67 20 127/64 99 Room Air 97.3 01/21/18 10:42 98.2 01/21/18 08:00 97.7 64 20 109/70 99 Room Air 97.7 01/21/18 07:39 98.2 01/21/18 04:00 98.2 63 18 120/73 97 98.2 01/21/18 00:00 98.2 61 19 124/78 97 98.2 01/21/18 00:00 97 Room Air 01/20/18 20:00 100 Room Air 01/20/18 20:00 97.9 60 20 123/73 100 97.9 01/20/18 19:01 96.9 01/20/18 19:00 99 Nasal Cannula 2.0 28 01/20/18 19:00 Nasal Cannula 2.0 28 01/20/18 15:59 96.9 Intake and Output 01/20/18 01/21/18 19:00 07:00 Intake Total 2032.5 ml 765.0 ml Output Total 4150 ml Balance 2032.5 ml -3385.0 ml Intake Oral 1850 ml IV Total 182.5 ml 765.0 ml Output Urine Total 1050 ml Other 3100 ml # Voids 6 2 Laboratory Tests 01/21/18 04:45: Sodium Level 143, Potassium Level 3.6, Chloride Level 112H, Carbon Dioxide Level 21, Anion Gap 10, Blood Urea Nitrogen 17, Creatinine 1.0, Estimat Glomerular Filtration Rate > 60, Glucose Level 297H, Calcium Level 7.5L, Phosphorus Level 3.0, Magnesium Level 2.4, Total Bilirubin 0.3, Aspartate Amino Transf (AST/SGOT) 21, Alanine Aminotransferase (ALT/SGPT) 16, Alkaline Phosphatase 174H, Total Protein 6.3L, Albumin 2.5L, Globulin 3.8, Albumin/ Globulin Ratio 0.7L Height (Feet): 5 Height (Inches): 4.00 Weight (Pounds): 119 General Appearance: no apparent distress Objective no change LANDEN CEBALLOS Jan 21, 2018 15:30
[2018-01-21 15:48] LABS: BASOPHILS % (AUTO) 2.2 % (0.0-2.0); EOSINOPHILS % (AUTO) 4.1 % (0.0-3.0); HEMATOCRIT 26.8 % (42.0-52.0); HEMOGLOBIN 8.7 G/DL (14.2-18.0); LYMPHOCYTES % (AUTO) 32.2 % (20.0-45.0); MEAN CORPUSCULAR VOLUME 103 FL (80-99); MONOCYTES % (AUTO) 10.2 % (1.0-10.0); NEUTROPHILS % (AUTO) 51.2 % (45.0-75.0); PLATELET COUNT 376 K/UL (150-450); RED CELL DISTRIBUTION WIDTH 13.3 % (11.6-14.8); WHITE BLOOD COUNT 5.7 K/UL (4.8-10.8)
[2018-01-21 16:00] VITALS: BP 121/82
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
--- NOTE | 2018-01-21 19:52 | Pulmonology Progress Note ---
Assessment/Plan Problems: (1) Dehydration (2) SVT (supraventricular tachycardia) (3) Hypoglycemia (4) Hypokalemia (5) Pain (6) H/O splenectomy (7) History of nephrectomy Assessment/Plan no new complains all ntoed ID to see TPN pain management symptomatic treatment. dc planning to [facility] or group home facility Subjective ROS Limited/Unobtainable: No Allergies: Coded Allergies: MEPERIDINE (Verified Allergy, Severe, 12/25/17) AMPHOTERICIN B (Verified Allergy, Intermediate, 12/25/17) VORICONAZOLE (Verified Allergy, Intermediate, 12/25/17) MORPHINE (Verified Allergy, Unknown, 12/25/17) Uncoded Allergies: CHAVA (Adverse Reaction, Unknown, 12/25/17) Objective Last 24 Hour Vital Signs Date Time Temp Pulse Resp B/P (MAP) Pulse Ox O2 Delivery O2 Flow Rate FiO2 01/21/18 17:17 97.3 01/21/18 16:47 97.3 01/21/18 16:00 97.6 58 20 121/82 96 Room Air 97.6 01/21/18 13:45 97.3 01/21/18 12:00 97.3 67 20 127/64 99 Room Air 97.3 01/21/18 10:42 98.2 01/21/18 08:00 97.7 64 20 109/70 99 Room Air 97.7 01/21/18 07:39 98.2 01/21/18 04:00 98.2 63 18 120/73 97 98.2 01/21/18 00:00 98.2 61 19 124/78 97 98.2 01/21/18 00:00 97 Room Air 01/20/18 20:00 100 Room Air 01/20/18 20:00 97.9 60 20 123/73 100 97.9 Intake and Output 01/20/18 01/21/18 19:00 07:00 Intake Total 2032.5 ml 765.0 ml Output Total 4150 ml Balance 2032.5 ml -3385.0 ml Intake Oral 1850 ml IV Total 182.5 ml 765.0 ml Output Urine Total 1050 ml Other 3100 ml # Voids 6 2 Objective HEENT: atraumatic Neck: full ROM Heart: HR/BP stable Abdomen: soft, active bowel sounds, feeding tube Extremities: no edema Laboratory Tests 01/21/18 04:45: Sodium Level 143, Potassium Level 3.6, Chloride Level 112H, Carbon Dioxide Level 21, Anion Gap 10, Blood Urea Nitrogen 17, Creatinine 1.0, Estimat Glomerular Filtration Rate > 60, Glucose Level 297H, Calcium Level 7.5L, Phosphorus Level 3.0, Magnesium Level 2.4, Total Bilirubin 0.3, Aspartate Amino Transf (AST/SGOT) 21, Alanine Aminotransferase (ALT/SGPT) 16, Alkaline Phosphatase 174H, Total Protein 6.3L, Albumin 2.5L, Globulin 3.8, Albumin/ Globulin Ratio 0.7L 01/21/18 13:15: White Blood Count 5.7, Red Blood Count 2.60L, Hemoglobin 8.7L, Hematocrit 26.8L , Mean Corpuscular Volume 103H, Mean Corpuscular Hemoglobin 33.6H, Mean Corpuscular Hemoglobin Concent 32.5, Red Cell Distribution Width 13.3, Platelet Count 376, Mean Platelet Volume 7.7, Neutrophils (%) (Auto) 51.2, Lymphocytes (% ) (Auto) 32.2, Monocytes (%) (Auto) 10.2H, Eosinophils (%) (Auto) 4.1H, Basophils (%) (Auto) 2.2H Current Medications Medications (Trade) Dose Ordered Sig/Serenity Route PRN Reason Start Time Stop Time Status Last Admin Dose Admin Acetaminophen (Tylenol) 650 mg Q4H PRN ORAL Mild Pain/Temp > 100.5 01/12/18 13:15 02/08/18 17:14 Chlorhexidine Gluconate (Ashlyn-Hex 2%) 1 applic DAILY@2000 TOPIC 01/12/18 20:00 02/08/18 19:59 01/20/18 21:37 Dextrose (Dextrose 50%) STAT PRN IV Hypoglycemia 01/12/18 21:00 02/09/18 20:52 Dextrose/Sodium Chloride 1,000 ml @ 75 mls/hr [id number] IV 01/20/18 18:30 02/19/18 18:29 01/21/18 04:37 Diphenhydramine HCl (Benadryl) 50 mg Q6H PRN IVP Itching 01/17/18 14:45 02/16/18 14:44 01/21/18 16:47 Fat Emulsion Intravenous 144 ml/Amino Acids/ Electrolytes/ Dextrose 1,200 ml @ 0 mls/hr Q24H IV 01/18/18 20:00 01/21/18 19:59 01/20/18 21:39 Fat Emulsion Intravenous 144 ml/Amino Acids/ Electrolytes/ Dextrose 1,200 ml @ 0 mls/hr Q24H IV 01/21/18 20:00 02/20/18 19:59 Hydromorphone HCl (Dilaudid) 1 mg Q3H PRN IVP Severe Pain (Pain Scale 7-10) 01/21/18 19:15 01/28/18 19:14 Insulin Aspart (NovoLOG) Q6HR SUBQ 01/12/18 18:00 02/09/18 17:59 01/17/18 00:13 Mirtazapine (Remeron) 15 mg BEDTIME ORAL 01/12/18 21:00 02/08/18 20:59 01/20/18 21:37 Ondansetron HCl (Zofran) 4 mg Q6H PRN IVP Nausea & Vomiting 01/12/18 15:00 02/08/18 20:55 01/13/18 22:14 Pantoprazole (Protonix) 40 mg Q12HR IVP 01/14/18 09:30 02/12/18 09:29 01/21/18 07:39 Promethazine HCl (Phenergan Plain) 6.25 mg Q6H PRN ORAL For Cough 01/20/18 14:30 02/19/18 14:29 01/20/18 15:58 Wendi Ahmadi MD Jan 21, 2018 19:52
[2018-01-21 20:00] VITALS: BP 124/80
[2018-01-21] MEDS: PARENTERAL NUTRITION IV SCH (21:51)
[2018-01-21] MEDS: [UNRECOGNIZED DRUG - OTHER] IV SCH (21:51)
[2018-01-21] MEDS: Dyna-Hex 2% Top Sol 2oz TOPIC SCH (21:52)
[2018-01-22] VITALS: BP 119/80
[2018-01-22] MEDS: HYDROmorphone 1mg/ml Carpuject IVP PRN ×7 (02:24→21:06)
[2018-01-22 04:00] VITALS: BP 120/67
[2018-01-22] MEDS: DiphenhydrAMINE 50mg/ml Inj IVP PRN ×3 (05:41→18:03)
[2018-01-22] MEDS: NovoLOG Insulin Flexpen SUBQ SCH ×4 (05:51→18:00)
[2018-01-22 08:00] VITALS: BP 111/82
[2018-01-22 08:19] LABS: HEMOGLOBIN 7.8 G/DL (14.2-18.0); MEAN CORPUSCULAR VOLUME 105 FL (80-99); PLATELET COUNT 356 K/UL (150-450); RED BLOOD COUNT 2.29 M/UL (4.70-6.10); RED CELL DISTRIBUTION WIDTH 13.5 % (11.6-14.8); WHITE BLOOD COUNT 4.4 K/UL (4.8-10.8)
[2018-01-22] MEDS: D5NS 1,000 ML IV SCH (08:57)
[2018-01-22] MEDS: Pantoprazole Inj IVP SCH ×2 (08:57→21:06)
[2018-01-22 09:03] LABS: ALANINE AMINOTRANSFERASE 14 U/L (12-78); ALBUMIN 2.5 G/DL (3.4-5.0); ALBUMIN/GLOBULIN RATIO 0.7 (1.0-2.7); ALKALINE PHOSPHATASE 172 U/L (46-116); ANION GAP 8 mmol/L (5-15); ASPARTATE AMINO TRANSFERASE 18 U/L (15-37); BILIRUBIN,TOTAL 0.3 MG/DL (0.2-1.0); BLOOD UREA NITROGEN 18 mg/dL (7-18); CALCIUM 7.3 MG/DL (8.5-10.1); CARBON DIOXIDE 23 MMOL/L (21-32); CHLORIDE 115 MMOL/L (98-107); PHOSPHORUS 3.7 MG/DL (2.5-4.9); POTASSIUM 3.6 MMOL/L (3.5-5.1); SODIUM 146 MMOL/L (136-145)
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
[2018-01-22 12:00] VITALS: BP 130/85
--- NOTE | 2018-01-22 15:32 | Nephrology Progress Note ---
Assessment/Plan Problem List: (1) Acute renal failure (ARF) Assessment: cr lowering (2) Intractable vomiting (3) Dehydration (4) Hypokalemia Assessment Mag low corrected (1) Acute renal failure cr lowering (2) Dehydration (3) Hypokalemia improving (4) h/o Abdominal pain (5) History of nephrectomy (6) H/O splenectomy Plan Plan: K & Mag supp today TPN down to pain meds Urine studies Monitor renal parameters avoid nephrotoxics Per orders Subjective ROS Limited/Unobtainable: No Constitutional: Reports: malaise Objective Objective Last 24 Hour Vital Signs Date Time Temp Pulse Resp B/P (MAP) Pulse Ox O2 Delivery O2 Flow Rate FiO2 01/22/18 12:00 98.0 54 16 130/85 100 98.0 01/22/18 08:00 98.1 65 17 111/82 100 98.1 01/22/18 04:00 98.4 61 20 120/67 100 98.4 01/22/18 00:00 98.7 56 20 119/80 96 98.7 01/21/18 20:00 98.1 56 20 124/80 100 98.1 01/21/18 17:17 97.3 01/21/18 16:47 97.3 01/21/18 16:00 97.6 58 20 121/82 96 Room Air 97.6 Intake and Output 01/21/18 01/22/18 19:00 07:00 Intake Total 1925.0 ml 1365.0 ml Output Total 6200 ml 6100 ml Balance -4275.0 ml -4735.0 ml Intake Oral 590 ml IV Total 1335.0 ml 1365.0 ml Output Urine Total 2100 ml 800 ml Other 4100 ml 5300 ml # Voids 1 Laboratory Tests 01/22/18 06:58: White Blood Count 4.4L, Red Blood Count 2.29L, Hemoglobin 7.8L, Hematocrit 24.0L , Mean Corpuscular Volume 105H, Mean Corpuscular Hemoglobin 34.0H, Mean Corpuscular Hemoglobin Concent 32.4, Red Cell Distribution Width 13.5, Platelet Count 356, Mean Platelet Volume 8.2, Neutrophils (%) (Auto) , Lymphocytes (%) ( Auto) , Monocytes (%) (Auto) , Eosinophils (%) (Auto) , Basophils (%) (Auto) , Differential Total Cells Counted 100, Neutrophils % (Manual) 46, Lymphocytes % ( Manual) 36, Monocytes % (Manual) 12H, Eosinophils % (Manual) 4H, Basophils % ( Manual) 0, Band Neutrophils 2, Platelet Estimate Adequate, Platelet Morphology Normal, Hypochromasia 1+, Anisocytosis 1+, Macrocytosis 1+, Sodium Level 146H, Potassium Level 3.6, Chloride Level 115H, Carbon Dioxide Level 23, Anion Gap 8, Blood Urea Nitrogen 18, Creatinine 1.0, Estimat Glomerular Filtration Rate > 60 , Glucose Level 358H, Calcium Level 7.3L, Phosphorus Level 3.7, Magnesium Level 1.5L, Total Bilirubin 0.3, Aspartate Amino Transf (AST/SGOT) 18, Alanine Aminotransferase (ALT/SGPT) 14, Alkaline Phosphatase 172H, Total Protein 6.3L, Albumin 2.5L, Globulin 3.8, Albumin/Globulin Ratio 0.7L Height (Feet): 5 Height (Inches): 4.00 Weight (Pounds): 119 General Appearance: no apparent distress Objective no change LANDEN CEBALLOS Jan 22, 2018 15:31
[2018-01-22 16:00] VITALS: BP 124/81
--- NOTE | 2018-01-22 16:34 | Pulmonology Progress Note ---
Assessment/Plan Problems: (1) Dehydration (2) SVT (supraventricular tachycardia) (3) Hypoglycemia (4) Hypokalemia (5) Pain (6) H/O splenectomy (7) History of nephrectomy Assessment/Plan no new complains all ntoed ID to see TPN pain management symptomatic treatment. dc planning to LTAC Subjective ROS Limited/Unobtainable: No Allergies: Coded Allergies: MEPERIDINE (Verified Allergy, Severe, 12/25/17) AMPHOTERICIN B (Verified Allergy, Intermediate, 12/25/17) VORICONAZOLE (Verified Allergy, Intermediate, 12/25/17) MORPHINE (Verified Allergy, Unknown, 12/25/17) Uncoded Allergies: CHAVA (Adverse Reaction, Unknown, 12/25/17) Objective Last 24 Hour Vital Signs Date Time Temp Pulse Resp B/P (MAP) Pulse Ox O2 Delivery O2 Flow Rate FiO2 01/22/18 16:00 97.0 56 16 124/81 100 97.0 01/22/18 12:00 98.0 54 16 130/85 100 98.0 01/22/18 08:00 98.1 65 17 111/82 100 98.1 01/22/18 04:00 98.4 61 20 120/67 100 98.4 01/22/18 00:00 98.7 56 20 119/80 96 98.7 01/21/18 20:00 98.1 56 20 124/80 100 98.1 01/21/18 17:17 97.3 01/21/18 16:47 97.3 Intake and Output 01/21/18 01/22/18 19:00 07:00 Intake Total 1925.0 ml 1365.0 ml Output Total 6200 ml 6100 ml Balance -4275.0 ml -4735.0 ml Intake Oral 590 ml IV Total 1335.0 ml 1365.0 ml Output Urine Total 2100 ml 800 ml Other 4100 ml 5300 ml # Voids 1 Objective HEENT: atraumatic Neck: full ROM Heart: HR/BP stable Abdomen: soft, active bowel sounds, feeding tube Extremities: no edema Laboratory Tests 01/22/18 06:58: White Blood Count 4.4L, Red Blood Count 2.29L, Hemoglobin 7.8L, Hematocrit 24.0L , Mean Corpuscular Volume 105H, Mean Corpuscular Hemoglobin 34.0H, Mean Corpuscular Hemoglobin Concent 32.4, Red Cell Distribution Width 13.5, Platelet Count 356, Mean Platelet Volume 8.2, Neutrophils (%) (Auto) , Lymphocytes (%) ( Auto) , Monocytes (%) (Auto) , Eosinophils (%) (Auto) , Basophils (%) (Auto) , Differential Total Cells Counted 100, Neutrophils % (Manual) 46, Lymphocytes % ( Manual) 36, Monocytes % (Manual) 12H, Eosinophils % (Manual) 4H, Basophils % ( Manual) 0, Band Neutrophils 2, Platelet Estimate Adequate, Platelet Morphology Normal, Hypochromasia 1+, Anisocytosis 1+, Macrocytosis 1+, Sodium Level 146H, Potassium Level 3.6, Chloride Level 115H, Carbon Dioxide Level 23, Anion Gap 8, Blood Urea Nitrogen 18, Creatinine 1.0, Estimat Glomerular Filtration Rate > 60 , Glucose Level 358H, Calcium Level 7.3L, Phosphorus Level 3.7, Magnesium Level 1.5L, Total Bilirubin 0.3, Aspartate Amino Transf (AST/SGOT) 18, Alanine Aminotransferase (ALT/SGPT) 14, Alkaline Phosphatase 172H, Total Protein 6.3L, Albumin 2.5L, Globulin 3.8, Albumin/Globulin Ratio 0.7L Current Medications Medications (Trade) Dose Ordered Sig/Serenity Route PRN Reason Start Time Stop Time Status Last Admin Dose Admin Acetaminophen (Tylenol) 650 mg Q4H PRN ORAL Mild Pain/Temp > 100.5 01/12/18 13:15 02/08/18 17:14 Chlorhexidine Gluconate (Ashlyn-Hex 2%) 1 applic DAILY@1999 TOPIC 01/12/18 20:00 02/08/18 19:59 01/21/18 21:52 Dextrose (Dextrose 50%) STAT PRN IV Hypoglycemia 01/12/18 21:00 02/09/18 20:52 Dextrose/Sodium Chloride 1,000 ml @ 75 mls/hr [id number] IV 01/20/18 18:30 02/19/18 18:29 01/22/18 08:57 Diphenhydramine HCl (Benadryl) 50 mg Q6H PRN IVP Itching 01/17/18 14:45 02/16/18 14:44 01/22/18 11:57 Fat Emulsion Intravenous 144 ml/Amino Acids/ Electrolytes/ Dextrose 1,200 ml @ 0 mls/hr Q24H IV 01/21/18 20:00 01/22/18 20:59 01/21/18 21:51 Fat Emulsion Intravenous 144 ml/Amino Acids/ Electrolytes/ Dextrose 1,200 ml @ 0 mls/hr Q24H IV 01/22/18 21:00 02/21/18 20:59 Hydromorphone HCl (Dilaudid) 1 mg Q3H PRN IVP Severe Pain (Pain Scale 7-10) 01/21/18 19:15 01/28/18 19:14 01/22/18 14:58 Insulin Aspart (NovoLOG) Q6HR SUBQ 01/12/18 18:00 02/09/18 17:59 01/17/18 00:13 Mirtazapine (Remeron) 15 mg BEDTIME ORAL 01/12/18 21:00 02/08/18 20:59 01/21/18 21:50 Ondansetron HCl (Zofran) 4 mg Q6H PRN IVP Nausea & Vomiting 01/12/18 15:00 02/08/18 20:55 01/13/18 22:14 Pantoprazole (Protonix) 40 mg Q12HR IVP 01/14/18 09:30 02/12/18 09:29 01/22/18 08:57 Promethazine HCl (Phenergan Plain) 6.25 mg Q6H PRN ORAL For Cough 01/20/18 14:30 02/19/18 14:29 01/20/18 15:58 Wendi Ahmadi MD Jan 22, 2018 16:34
[2018-01-22 20:00] VITALS: BP 124/70
[2018-01-22] MEDS: [UNRECOGNIZED DRUG - OTHER] IV SCH ×2 (20:00→21:42)
[2018-01-22] MEDS: Dyna-Hex 2% Top Sol 2oz TOPIC SCH (20:00)
[2018-01-22] MEDS: PARENTERAL NUTRITION IV SCH ×2 (20:00→21:42)
[2018-01-23] VITALS (7 sets, daily range): BP systolic 112–144; BP diastolic 72–86
[2018-01-23] MEDS: HYDROmorphone 1mg/ml Carpuject IVP PRN ×8 (00:14→21:44)
[2018-01-23] MEDS: D5NS 1,000 ML IV SCH ×2 (00:14→12:54)
[2018-01-23] MEDS: DiphenhydrAMINE 50mg/ml Inj IVP PRN ×4 (00:15→18:42)
[2018-01-23] MEDS: NovoLOG Insulin Flexpen SUBQ SCH ×4 (05:53→17:57)
[2018-01-23 08:46] LABS: BASOPHILS % (AUTO) 1.4 % (0.0-2.0); EOSINOPHILS % (AUTO) 6.7 % (0.0-3.0); HEMATOCRIT 24.8 % (42.0-52.0); HEMOGLOBIN 8.1 G/DL (14.2-18.0); LYMPHOCYTES % (AUTO) 30.2 % (20.0-45.0); MEAN CORPUSCULAR VOLUME 104 FL (80-99); MONOCYTES % (AUTO) 12.6 % (1.0-10.0); NEUTROPHILS % (AUTO) 49.1 % (45.0-75.0); PLATELET COUNT 400 K/UL (150-450); RED BLOOD COUNT 2.39 M/UL (4.70-6.10); RED CELL DISTRIBUTION WIDTH 13.9 % (11.6-14.8)
[2018-01-23 09:15] LABS: ANION GAP 10 mmol/L (5-15); BLOOD UREA NITROGEN 21 mg/dL (7-18); CALCIUM 7.7 MG/DL (8.5-10.1); CARBON DIOXIDE 23 MMOL/L (21-32); CHLORIDE 110 MMOL/L (98-107); POTASSIUM 3.5 MMOL/L (3.5-5.1); SODIUM 143 MMOL/L (136-145)
[2018-01-23] MEDS: Pantoprazole Inj IVP SCH ×2 (09:44→21:21)
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
--- NOTE | 2018-01-23 11:00 | Nephrology Progress Note ---
Assessment/Plan Problem List: (1) Acute renal failure (ARF) Assessment: cr lowering (2) Intractable vomiting (3) Dehydration (4) Hypokalemia Assessment Mag low corrected (1) Acute renal failure cr lowering (2) Dehydration (3) Hypokalemia improving (4) h/o Abdominal pain (5) History of nephrectomy (6) H/O splenectomy Plan Plan: K & Mag supp today TPN down to pain meds Urine studies Monitor renal parameters avoid nephrotoxics Per orders Subjective ROS Limited/Unobtainable: No Constitutional: Reports: malaise Objective Objective Last 24 Hour Vital Signs Date Time Temp Pulse Resp B/P (MAP) Pulse Ox O2 Delivery O2 Flow Rate FiO2 01/23/18 04:26 98.0 89 18 131/77 99 98.0 01/23/18 00:00 98.0 64 20 127/85 100 98.0 01/23/18 00:00 100 Room Air 01/22/18 20:00 98.1 62 20 124/70 100 98.1 01/22/18 20:00 100 Room Air 01/22/18 19:05 98 Nasal Cannula 2.0 28 01/22/18 19:00 Nasal Cannula 2.0 28 01/22/18 16:00 97.0 56 16 124/81 100 97.0 01/22/18 12:00 98.0 54 16 130/85 100 98.0 Intake and Output 01/22/18 01/23/18 19:00 07:00 Intake Total 3385.0 ml 2235.0 ml Output Total 7000 ml Balance -3615.0 ml 2235.0 ml Intake Oral 2000 ml 720 ml IV Total 1385.0 ml 1515.0 ml Output Urine Total 2300 ml Other 4700 ml # Voids 2 Laboratory Tests 01/23/18 06:50: White Blood Count 6.0, Red Blood Count 2.39L, Hemoglobin 8.1L, Hematocrit 24.8L , Mean Corpuscular Volume 104H, Mean Corpuscular Hemoglobin 34.1H, Mean Corpuscular Hemoglobin Concent 32.9, Red Cell Distribution Width 13.9, Platelet Count 400, Mean Platelet Volume 8.3, Neutrophils (%) (Auto) 49.1, Lymphocytes (% ) (Auto) 30.2, Monocytes (%) (Auto) 12.6H, Eosinophils (%) (Auto) 6.7H, Basophils (%) (Auto) 1.4, Sodium Level 143, Potassium Level 3.5, Chloride Level 110H, Carbon Dioxide Level 23, Anion Gap 10, Blood Urea Nitrogen 21H, Creatinine 1.0, Estimat Glomerular Filtration Rate > 60, Glucose Level 335H, Calcium Level 7.7L, Phosphorus Level 4.0, Magnesium Level 1.9 Height (Feet): 5 Height (Inches): 4.00 Weight (Pounds): 119 General Appearance: no apparent distress Objective no change LANDEN CEBALLOS Jan 23, 2018 11:00
[2018-01-23] MEDS: Dyna-Hex 2% Top Sol 2oz TOPIC SCH (21:21)
[2018-01-23] MEDS: PARENTERAL NUTRITION IV SCH (21:22)
[2018-01-23] MEDS: [UNRECOGNIZED DRUG - OTHER] IV SCH (21:22)
--- NOTE | 2018-01-23 21:55 | Pulmonology Progress Note ---
Assessment/Plan Problems: (1) Dehydration (2) SVT (supraventricular tachycardia) (3) Hypoglycemia (4) Hypokalemia (5) Pain (6) H/O splenectomy (7) History of nephrectomy Assessment/Plan no new complains all ntoed ID to see TPN pain management symptomatic treatment. dc planning to LTAC Subjective ROS Limited/Unobtainable: No Allergies: Coded Allergies: MEPERIDINE (Verified Allergy, Severe, 12/25/17) AMPHOTERICIN B (Verified Allergy, Intermediate, 12/25/17) VORICONAZOLE (Verified Allergy, Intermediate, 12/25/17) MORPHINE (Verified Allergy, Unknown, 12/25/17) Uncoded Allergies: CHAVA (Adverse Reaction, Unknown, 12/25/17) Objective Last 24 Hour Vital Signs Date Time Temp Pulse Resp B/P (MAP) Pulse Ox O2 Delivery O2 Flow Rate FiO2 01/23/18 20:00 98.4 72 18 115/86 97 Room Air 98.4 01/23/18 16:10 98.6 51 19 112/77 97 Room Air 98.6 01/23/18 16:00 98.6 51 18 112/77 100 Room Air 98.6 01/23/18 12:00 98.3 64 18 144/74 100 Room Air 98.3 01/23/18 08:00 97.8 78 18 124/72 99 Room Air 97.8 01/23/18 04:26 98.0 89 18 131/77 99 98.0 01/23/18 00:00 98.0 64 20 127/85 100 98.0 01/23/18 00:00 100 Room Air Intake and Output 01/22/18 01/23/18 19:00 07:00 Intake Total 3385.0 ml 2235.0 ml Output Total 7000 ml Balance -3615.0 ml 2235.0 ml Intake Oral 2000 ml 720 ml IV Total 1385.0 ml 1515.0 ml Output Urine Total 2300 ml Other 4700 ml # Voids 2 Objective HEENT: atraumatic Neck: full ROM Heart: HR/BP stable Abdomen: soft, active bowel sounds, feeding tube Extremities: no edema Laboratory Tests 01/23/18 06:50: White Blood Count 6.0, Red Blood Count 2.39L, Hemoglobin 8.1L, Hematocrit 24.8L , Mean Corpuscular Volume 104H, Mean Corpuscular Hemoglobin 34.1H, Mean Corpuscular Hemoglobin Concent 32.9, Red Cell Distribution Width 13.9, Platelet Count 400, Mean Platelet Volume 8.3, Neutrophils (%) (Auto) 49.1, Lymphocytes (% ) (Auto) 30.2, Monocytes (%) (Auto) 12.6H, Eosinophils (%) (Auto) 6.7H, Basophils (%) (Auto) 1.4, Sodium Level 143, Potassium Level 3.5, Chloride Level 110H, Carbon Dioxide Level 23, Anion Gap 10, Blood Urea Nitrogen 21H, Creatinine 1.0, Estimat Glomerular Filtration Rate > 60, Glucose Level 335H, Calcium Level 7.7L, Phosphorus Level 4.0, Magnesium Level 1.9 Current Medications Medications (Trade) Dose Ordered Sig/Serenity Route PRN Reason Start Time Stop Time Status Last Admin Dose Admin Acetaminophen (Tylenol) 650 mg Q4H PRN ORAL Mild Pain/Temp > 100.5 01/12/18 13:15 02/08/18 17:14 Chlorhexidine Gluconate (Ashlyn-Hex 2%) 1 applic DAILY@2000 TOPIC 01/12/18 20:00 02/08/18 19:59 01/23/18 21:21 Dextrose (Dextrose 50%) STAT PRN IV Hypoglycemia 01/12/18 21:00 02/09/18 20:52 Dextrose/Sodium Chloride 1,000 ml @ 75 mls/hr [id number] IV 01/20/18 18:30 02/19/18 18:29 01/23/18 12:54 Diphenhydramine HCl (Benadryl) 50 mg Q6H PRN IVP Itching 01/17/18 14:45 02/16/18 14:44 01/23/18 18:42 Fat Emulsion Intravenous 144 ml/Amino Acids/ Electrolytes/ Dextrose 1,200 ml @ 0 mls/hr Q24H IV 01/22/18 21:00 02/21/18 20:59 01/23/18 21:22 Hydromorphone HCl (Dilaudid) 1 mg Q3H PRN IVP Severe Pain (Pain Scale 7-10) 01/21/18 19:15 01/28/18 19:14 01/23/18 21:44 Insulin Aspart (NovoLOG) Q6HR SUBQ 01/12/18 18:00 02/09/18 17:59 01/17/18 00:13 Mirtazapine (Remeron) 15 mg BEDTIME ORAL 01/12/18 21:00 02/08/18 20:59 01/23/18 21:21 Ondansetron HCl (Zofran) 4 mg Q6H PRN IVP Nausea & Vomiting 01/12/18 15:00 02/08/18 20:55 01/13/18 22:14 Pantoprazole (Protonix) 40 mg Q12HR IVP 01/14/18 09:30 02/12/18 09:29 01/23/18 21:21 Promethazine HCl (Phenergan Plain) 6.25 mg Q6H PRN ORAL For Cough 01/20/18 14:30 02/19/18 14:29 01/20/18 15:58 Wendi Ahmadi MD Jan 23, 2018 21:55
[2018-01-24] VITALS: BP 121/80
[2018-01-24] MEDS: DiphenhydrAMINE 50mg/ml Inj IVP PRN ×4 (00:48→19:17)
[2018-01-24] MEDS: HYDROmorphone 1mg/ml Carpuject IVP PRN ×4 (00:48→13:04)
[2018-01-24] MEDS: D5NS 1,000 ML IV SCH ×2 (01:54→15:30)
[2018-01-24 04:00] VITALS: BP 114/70
[2018-01-24] MEDS: NovoLOG Insulin Flexpen SUBQ SCH ×4 (06:00→18:00)
[2018-01-24 08:06] LABS: HEMATOCRIT 23.5 % (42.0-52.0); HEMOGLOBIN 7.7 G/DL (14.2-18.0); MEAN CORPUSCULAR VOLUME 105 FL (80-99); PLATELET COUNT 400 K/UL (150-450); RED BLOOD COUNT 2.24 M/UL (4.70-6.10); RED CELL DISTRIBUTION WIDTH 13.8 % (11.6-14.8); WHITE BLOOD COUNT 5.5 K/UL (4.8-10.8)
[2018-01-24 08:22] LABS: BASOPHILS % (AUTO) 1.3 % (0.0-2.0); EOSINOPHILS % (AUTO) 5.9 % (0.0-3.0); LYMPHOCYTES % (AUTO) 31.4 % (20.0-45.0); MONOCYTES % (AUTO) 11.1 % (1.0-10.0); NEUTROPHILS % (AUTO) 50.4 % (45.0-75.0)
[2018-01-24 08:31] LABS: ANION GAP 9 mmol/L (5-15); BLOOD UREA NITROGEN 22 mg/dL (7-18); CALCIUM 7.4 MG/DL (8.5-10.1); CARBON DIOXIDE 23 MMOL/L (21-32); CHLORIDE 112 MMOL/L (98-107); PHOSPHORUS 4.2 MG/DL (2.5-4.9); POTASSIUM 3.4 MMOL/L (3.5-5.1); SODIUM 144 MMOL/L (136-145)
[2018-01-24 09:00] VITALS: BP 118/61
[2018-01-24] MEDS: Pantoprazole Inj IVP SCH ×2 (09:20→22:10)
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
[2018-01-24 11:34] VITALS: BP 111/75
--- NOTE | 2018-01-24 15:20 | Nephrology Progress Note ---
Assessment/Plan Problem List: (1) Acute renal failure (ARF) Assessment: cr lowering (2) Intractable vomiting (3) Dehydration (4) Hypokalemia Assessment Mag low corrected (1) Acute renal failure cr lowering (2) Dehydration (3) Hypokalemia improving (4) h/o Abdominal pain (5) History of nephrectomy (6) H/O splenectomy Plan Plan: K & Mag supp today TPN down to pain meds Urine studies Monitor renal parameters avoid nephrotoxics Per orders Subjective ROS Limited/Unobtainable: No Constitutional: Reports: malaise Objective Objective Last 24 Hour Vital Signs Date Time Temp Pulse Resp B/P (MAP) Pulse Ox O2 Delivery O2 Flow Rate FiO2 01/24/18 11:34 98.1 70 18 111/75 95 Room Air 98.1 01/24/18 09:00 98.1 79 18 118/61 Room Air 98.1 01/24/18 04:00 98.2 62 18 114/70 100 Room Air 98.2 01/24/18 00:00 98.2 69 18 121/80 99 Room Air 98.2 01/23/18 20:00 97 Room Air 01/23/18 20:00 98.4 72 18 115/86 97 Room Air 98.4 01/23/18 16:10 98.6 51 19 112/77 97 Room Air 98.6 01/23/18 16:00 98.6 51 18 112/77 100 Room Air 98.6 Intake and Output 01/23/18 01/24/18 19:00 07:00 Intake Total 2860.0 ml 250 ml Output Total 300 ml Balance 2860.0 ml -50 ml Intake Oral 1600 ml IV Total 1260.0 ml Tube Feeding 250 ml Output Urine Total 300 ml # Voids 7 1 Laboratory Tests 01/24/18 06:25: White Blood Count 5.5, Red Blood Count 2.24L, Hemoglobin 7.7L, Hematocrit 23.5L , Mean Corpuscular Volume 105H, Mean Corpuscular Hemoglobin 34.3H, Mean Corpuscular Hemoglobin Concent 32.8, Red Cell Distribution Width 13.8, Platelet Count 400, Mean Platelet Volume 7.9, Neutrophils (%) (Auto) 50.4, Lymphocytes (% ) (Auto) 31.4, Monocytes (%) (Auto) 11.1H, Eosinophils (%) (Auto) 5.9H, Basophils (%) (Auto) 1.3, Sodium Level 144, Potassium Level 3.4L, Chloride Level 112H, Carbon Dioxide Level 23, Anion Gap 9, Blood Urea Nitrogen 22H, Creatinine 1.0, Estimat Glomerular Filtration Rate > 60, Glucose Level 380H, Calcium Level 7.4L, Phosphorus Level 4.2, Magnesium Level 1.5L Height (Feet): 5 Height (Inches): 4.00 Weight (Pounds): 119 General Appearance: no apparent distress Objective no change LANDEN CEBALLOS 22, 2018 15:20
--- NOTE | 2018-01-24 15:26 | Pulmonology Progress Note ---
Assessment/Plan Problems: (1) Dehydration (2) SVT (supraventricular tachycardia) (3) Hypoglycemia (4) Hypokalemia (5) Pain (6) H/O splenectomy (7) History of nephrectomy Assessment/Plan no new complains all ntoed ID to see TPN pain management symptomatic treatment. dc planning Subjective ROS Limited/Unobtainable: No Constitutional: Reports: no symptoms HEENT: Repors: no symptoms Allergies: Coded Allergies: MEPERIDINE (Verified Allergy, Severe, 12/25/17) AMPHOTERICIN B (Verified Allergy, Intermediate, 12/25/17) VORICONAZOLE (Verified Allergy, Intermediate, 12/25/17) MORPHINE (Verified Allergy, Unknown, 12/25/17) Uncoded Allergies: CHAVA (Adverse Reaction, Unknown, 12/25/17) Objective Last 24 Hour Vital Signs Date Time Temp Pulse Resp B/P (MAP) Pulse Ox O2 Delivery O2 Flow Rate FiO2 01/24/18 11:34 98.1 70 18 111/75 95 Room Air 98.1 01/24/18 09:00 98.1 79 18 118/61 Room Air 98.1 01/24/18 04:00 98.2 62 18 114/70 100 Room Air 98.2 01/24/18 00:00 98.2 69 18 121/80 99 Room Air 98.2 01/23/18 20:00 97 Room Air 01/23/18 20:00 98.4 72 18 115/86 97 Room Air 98.4 01/23/18 16:10 98.6 51 19 112/77 97 Room Air 98.6 01/23/18 16:00 98.6 51 18 112/77 100 Room Air 98.6 Intake and Output 01/23/18 01/24/18 19:00 07:00 Intake Total 2860.0 ml 250 ml Output Total 300 ml Balance 2860.0 ml -50 ml Intake Oral 1600 ml IV Total 1260.0 ml Tube Feeding 250 ml Output Urine Total 300 ml # Voids 7 1 Objective HEENT: atraumatic Neck: full ROM Heart: HR/BP stable Abdomen: soft, active bowel sounds, feeding tube Extremities: no edema Laboratory Tests 01/24/18 06:25: White Blood Count 5.5, Red Blood Count 2.24L, Hemoglobin 7.7L, Hematocrit 23.5L , Mean Corpuscular Volume 105H, Mean Corpuscular Hemoglobin 34.3H, Mean Corpuscular Hemoglobin Concent 32.8, Red Cell Distribution Width 13.8, Platelet Count 400, Mean Platelet Volume 7.9, Neutrophils (%) (Auto) 50.4, Lymphocytes (% ) (Auto) 31.4, Monocytes (%) (Auto) 11.1H, Eosinophils (%) (Auto) 5.9H, Basophils (%) (Auto) 1.3, Sodium Level 144, Potassium Level 3.4L, Chloride Level 112H, Carbon Dioxide Level 23, Anion Gap 9, Blood Urea Nitrogen 22H, Creatinine 1.0, Estimat Glomerular Filtration Rate > 60, Glucose Level 380H, Calcium Level 7.4L, Phosphorus Level 4.2, Magnesium Level 1.5L Current Medications Medications (Trade) Dose Ordered Sig/Serenity Route PRN Reason Start Time Stop Time Status Last Admin Dose Admin Acetaminophen (Tylenol) 650 mg Q4H PRN ORAL Mild Pain/Temp > 100.5 01/12/18 13:15 02/08/18 17:14 Chlorhexidine Gluconate (Ashlyn-Hex 2%) 1 applic DAILY@2000 TOPIC 01/12/18 20:00 02/08/18 19:59 01/23/18 21:21 Dextrose (Dextrose 50%) STAT PRN IV Hypoglycemia 01/12/18 21:00 02/09/18 20:52 Dextrose/Sodium Chloride 1,000 ml @ 75 mls/hr [id number] IV 01/20/18 18:30 02/19/18 18:29 01/24/18 01:54 Diphenhydramine HCl (Benadryl) 50 mg Q6H PRN IVP Itching 01/17/18 14:45 02/16/18 14:44 01/24/18 13:04 Fat Emulsion Intravenous 144 ml/Amino Acids/ Electrolytes/ Dextrose 1,200 ml @ 0 mls/hr Q24H IV 01/22/18 21:00 01/24/18 20:59 01/23/18 21:22 Fat Emulsion Intravenous 144 ml/Amino Acids/ Electrolytes/ Dextrose 1,200 ml @ 0 mls/hr Q24H IV 01/24/18 21:00 02/23/18 20:59 Hydromorphone HCl (Dilaudid) 1 mg Q3H PRN IVP Severe Pain (Pain Scale 7-10) 01/21/18 19:15 01/28/18 19:14 01/24/18 13:04 Insulin Aspart (NovoLOG) Q6HR SUBQ 01/12/18 18:00 02/09/18 17:59 01/17/18 00:13 Magnesium Sulfate 100 ml @ 100 mls/hr Q1H IVPB 01/24/18 16:00 01/24/18 19:59 Mirtazapine (Remeron) 15 mg BEDTIME ORAL 01/12/18 21:00 02/08/18 20:59 01/23/18 21:21 Ondansetron HCl (Zofran) 4 mg Q6H PRN IVP Nausea & Vomiting 01/12/18 15:00 02/08/18 20:55 01/13/18 22:14 Pantoprazole (Protonix) 40 mg Q12HR IVP 01/14/18 09:30 02/12/18 09:29 01/24/18 09:20 Promethazine HCl (Phenergan Plain) 6.25 mg Q6H PRN ORAL For Cough 01/20/18 14:30 02/19/18 14:29 01/20/18 15:58 Wendi Ahmadi MD Jan 24, 2018 15:26
[2018-01-24 16:08] VITALS: BP 108/75
[2018-01-24 20:30] VITALS: BP 139/81
[2018-01-24] MEDS: PARENTERAL NUTRITION IV SCH (22:10)
[2018-01-24] MEDS: [UNRECOGNIZED DRUG - OTHER] IV SCH (22:10)
[2018-01-24] MEDS: Dyna-Hex 2% Top Sol 2oz TOPIC SCH (22:37)
[2018-01-25] VITALS: BP 116/75
[2018-01-25] MEDS: DiphenhydrAMINE 50mg/ml Inj IVP PRN ×4 (01:35→19:45)
[2018-01-25 05:00] VITALS: BP 116/78
[2018-01-25] MEDS: D5NS 1,000 ML IV SCH ×3 (05:30→18:44)
[2018-01-25] MEDS: NovoLOG Insulin Flexpen SUBQ SCH ×4 (06:00→18:00)
[2018-01-25 07:51] LABS: BASOPHILS % (AUTO) 1.2 % (0.0-2.0); EOSINOPHILS % (AUTO) 6.7 % (0.0-3.0); HEMOGLOBIN 8.8 G/DL (14.2-18.0); LYMPHOCYTES % (AUTO) 26.9 % (20.0-45.0); MEAN CORPUSCULAR VOLUME 105 FL (80-99); MONOCYTES % (AUTO) 10.7 % (1.0-10.0); NEUTROPHILS % (AUTO) 54.4 % (45.0-75.0); PLATELET COUNT 433 K/UL (150-450); RED BLOOD COUNT 2.58 M/UL (4.70-6.10); WHITE BLOOD COUNT 6.8 K/UL (4.8-10.8)
[2018-01-25 08:00] VITALS: BP 123/84
[2018-01-25 08:10] LABS: ANION GAP 11 mmol/L (5-15); BLOOD UREA NITROGEN 27 mg/dL (7-18); CALCIUM 8.6 MG/DL (8.5-10.1); CARBON DIOXIDE 23 MMOL/L (21-32); CHLORIDE 105 MMOL/L (98-107); CREATININE 1.2 MG/DL (0.55-1.30); PHOSPHORUS 4.6 MG/DL (2.5-4.9); POTASSIUM 3.9 MMOL/L (3.5-5.1); SODIUM 139 MMOL/L (136-145)
[2018-01-25] MEDS: Pantoprazole Inj IVP SCH ×2 (08:10→21:02)
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
[2018-01-25 11:58] VITALS: BP 117/83
--- NOTE | 2018-01-25 14:52 | Nephrology Progress Note ---
Assessment/Plan Problem List: (1) Acute renal failure (ARF) Assessment: cr lowering (2) Intractable vomiting (3) Dehydration (4) Hypokalemia Assessment Mag low corrected stable on TPN (1) Acute renal failure cr lowering (2) Dehydration (3) Hypokalemia improving (4) h/o Abdominal pain (5) History of nephrectomy (6) H/O splenectomy Plan Plan: K & Mag supp as needed TPN down to pain meds Urine studies Monitor renal parameters avoid nephrotoxics Per orders Subjective ROS Limited/Unobtainable: No Constitutional: Reports: malaise Objective Objective Last 24 Hour Vital Signs Date Time Temp Pulse Resp B/P (MAP) Pulse Ox O2 Delivery O2 Flow Rate FiO2 01/25/18 13:39 98.1 01/25/18 11:58 98.1 74 18 117/83 98 Room Air 98.1 01/25/18 08:00 98.6 84 20 123/84 97 Room Air 98.6 01/25/18 05:00 98.0 74 18 116/78 100 Room Air 98.0 01/25/18 00:00 98.3 81 18 116/75 100 Room Air 98.3 01/24/18 20:30 98.2 77 17 139/81 100 Room Air 98.2 01/24/18 16:08 98.2 63 18 108/75 100 Room Air 98.2 Intake and Output 01/24/18 01/25/18 19:00 07:00 Intake Total 2522.5 ml Output Total 4000 ml 2500 ml Balance -4000 ml 22.5 ml Intake Oral 2000 ml IV Total 522.5 ml Output Urine Total 400 ml Other 4000 ml 2100 ml Laboratory Tests 01/25/18 06:10: White Blood Count 6.8, Red Blood Count 2.58L, Hemoglobin 8.8L, Hematocrit 27.0L , Mean Corpuscular Volume 105H, Mean Corpuscular Hemoglobin 34.1H, Mean Corpuscular Hemoglobin Concent 32.6, Red Cell Distribution Width 14.0, Platelet Count 433, Mean Platelet Volume 7.4, Neutrophils (%) (Auto) 54.4, Lymphocytes (% ) (Auto) 26.9, Monocytes (%) (Auto) 10.7H, Eosinophils (%) (Auto) 6.7H, Basophils (%) (Auto) 1.2, Sodium Level 139, Potassium Level 3.9, Chloride Level 105, Carbon Dioxide Level 23, Anion Gap 11, Blood Urea Nitrogen 27H, Creatinine 1.2, Estimat Glomerular Filtration Rate > 60, Glucose Level 90#, Calcium Level 8.6, Phosphorus Level 4.6, Magnesium Level 2.3 Height (Feet): 5 Height (Inches): 4.00 Weight (Pounds): 119 General Appearance: no apparent distress Objective no change LANDEN CEBALLOS Jan 25, 2018 14:52
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
[2018-01-25] MEDS ORDERED: ZyPREXA Zydis 10mg tab ORAL PRN (15:45)
[2018-01-25 16:00] VITALS: BP 115/87
[2018-01-25] MEDS ORDERED: ZyPREXA Zydis 10mg tab SL PRN ×2 (16:00→16:15)
[2018-01-25] MEDS: Dyna-Hex 2% Top Sol 2oz TOPIC SCH (19:46)
[2018-01-25 20:00] VITALS: BP 108/73
[2018-01-25] MEDS: PARENTERAL NUTRITION IV SCH (21:08)
[2018-01-25] MEDS: [UNRECOGNIZED DRUG - OTHER] IV SCH (21:08)
[2018-01-26] VITALS: BP 125/77
[2018-01-26] MEDS: DiphenhydrAMINE 50mg/ml Inj IVP PRN ×4 (01:46→20:17)
[2018-01-26 04:00] VITALS: BP 118/75
[2018-01-26] MEDS: NovoLOG Insulin Flexpen SUBQ SCH ×5 (06:00→23:47)
[2018-01-26 07:00] LABS: BASOPHILS % (AUTO) 1.2 % (0.0-2.0); EOSINOPHILS % (AUTO) 5.2 % (0.0-3.0); HEMATOCRIT 27.4 % (42.0-52.0); LYMPHOCYTES % (AUTO) 20.5 % (20.0-45.0); MEAN CORPUSCULAR VOLUME 103 FL (80-99); NEUTROPHILS % (AUTO) 62.2 % (45.0-75.0); PLATELET COUNT 431 K/UL (150-450); RED BLOOD COUNT 2.66 M/UL (4.70-6.10); RED CELL DISTRIBUTION WIDTH 14.2 % (11.6-14.8); WHITE BLOOD COUNT 8.2 K/UL (4.8-10.8)
[2018-01-26 07:16] LABS: ANION GAP 7 mmol/L (5-15); BLOOD UREA NITROGEN 35 mg/dL (7-18); CALCIUM 8.7 MG/DL (8.5-10.1); CARBON DIOXIDE 25 MMOL/L (21-32); CHLORIDE 108 MMOL/L (98-107); CREATININE 1.3 MG/DL (0.55-1.30); PHOSPHORUS 5.5 MG/DL (2.5-4.9); POTASSIUM 4.5 MMOL/L (3.5-5.1); SODIUM 140 MMOL/L (136-145)
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
[2018-01-26 08:00] VITALS: BP 105/73
[2018-01-26] MEDS: D5NS 1,000 ML IV SCH ×2 (08:04→21:01)
[2018-01-26] MEDS: Pantoprazole Inj IVP SCH ×2 (08:55→21:01)
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
[2018-01-26 12:00] VITALS: BP 114/76
--- NOTE | 2018-01-26 14:04 | Nephrology Progress Note ---
Assessment/Plan Problem List: (1) Acute renal failure (ARF) Assessment: cr lowering (2) Intractable vomiting (3) Dehydration (4) Hypokalemia Assessment Mag low corrected stable on TPN (1) Acute renal failure cr lowering (2) Dehydration (3) Hypokalemia improving (4) h/o Abdominal pain (5) History of nephrectomy (6) H/O splenectomy Plan Plan: K & Mag supp as needed TPN down to pain meds Urine studies Monitor renal parameters avoid nephrotoxics Per orders Subjective ROS Limited/Unobtainable: No Constitutional: Reports: malaise Objective Objective Last 24 Hour Vital Signs Date Time Temp Pulse Resp B/P (MAP) Pulse Ox O2 Delivery O2 Flow Rate FiO2 01/26/18 12:00 98.8 70 19 114/76 96 Room Air 98.8 01/26/18 08:33 98.2 01/26/18 08:03 98.2 01/26/18 08:00 98.1 68 19 105/73 100 Room Air 98.1 01/26/18 04:00 98.2 77 18 118/75 99 Room Air 98.2 01/26/18 00:00 97.1 75 18 125/77 95 Room Air 97.1 01/25/18 20:00 98.4 63 18 108/73 97 Room Air 98.4 01/25/18 16:00 98.7 73 17 115/87 100 Room Air 98.7 Intake and Output 01/25/18 01/26/18 19:00 07:00 Intake Total 2200 ml 3665.0 ml Output Total 1800 ml 2650 ml Balance 400 ml 1015.0 ml Intake Oral 2200 ml 2000 ml IV Total 1665.0 ml Output Urine Total 1800 ml Other 2650 ml # Voids 2 Laboratory Tests 01/26/18 06:45: White Blood Count 8.2, Red Blood Count 2.66L, Hemoglobin 9.0L, Hematocrit 27.4L , Mean Corpuscular Volume 103H, Mean Corpuscular Hemoglobin 33.9H, Mean Corpuscular Hemoglobin Concent 32.9, Red Cell Distribution Width 14.2, Platelet Count 431, Mean Platelet Volume 7.6, Neutrophils (%) (Auto) 62.2, Lymphocytes (% ) (Auto) 20.5, Monocytes (%) (Auto) 11.0H, Eosinophils (%) (Auto) 5.2H, Basophils (%) (Auto) 1.2, Sodium Level 140, Potassium Level 4.5, Chloride Level 108H, Carbon Dioxide Level 25, Anion Gap 7, Blood Urea Nitrogen 35H, Creatinine 1.3, Estimat Glomerular Filtration Rate > 60, Glucose Level 84, Calcium Level 8.7, Phosphorus Level 5.5H, Magnesium Level 2.2 Height (Feet): 5 Height (Inches): 4.00 Weight (Pounds): 119 General Appearance: no apparent distress Objective no change LANDEN CEBALLOS 24, 2018 14:04
[2018-01-26 16:55] VITALS: BP 121/84
[2018-01-26] MEDS ORDERED: D5NS 1000ml IV ONE (17:26)
[2018-01-26 20:00] VITALS: BP 109/82
[2018-01-26] MEDS: Dyna-Hex 2% Top Sol 2oz TOPIC SCH (20:17)
[2018-01-26] MEDS: PARENTERAL NUTRITION IV SCH (21:02)
[2018-01-26] MEDS: [UNRECOGNIZED DRUG - OTHER] IV SCH (21:02)
[2018-01-26] MEDS: ZyPREXA Zydis 10mg tab SL PRN (23:40)
[2018-01-27] VITALS: BP 129/88
[2018-01-27] MEDS: DiphenhydrAMINE 50mg/ml Inj IVP PRN ×3 (02:32→20:58)
[2018-01-27 04:00] VITALS: BP 127/85
[2018-01-27] MEDS: NovoLOG Insulin Flexpen SUBQ SCH ×3 (05:49→17:26)
[2018-01-27 08:00] VITALS: BP 109/77
--- NOTE | 2018-01-27 09:09 | Nephrology Progress Note ---
Assessment/Plan Problem List: (1) Acute renal failure (ARF) Assessment: cr lowering (2) Intractable vomiting (3) Dehydration (4) Hypokalemia Assessment Mag low corrected stable on TPN (1) Acute renal failure cr lowering (2) Dehydration (3) Hypokalemia improving (4) h/o Abdominal pain (5) History of nephrectomy (6) H/O splenectomy Plan Plan: K & Mag supp as needed TPN down to pain meds Urine studies Monitor renal parameters avoid nephrotoxics Per orders Subjective ROS Limited/Unobtainable: No Objective Objective Last 24 Hour Vital Signs Date Time Temp Pulse Resp B/P (MAP) Pulse Ox O2 Delivery O2 Flow Rate FiO2 01/27/18 08:00 97.4 72 19 109/77 96 97.4 01/27/18 04:00 98.6 92 18 127/85 96 98.6 01/27/18 00:00 98.9 86 20 129/88 95 98.9 01/26/18 20:00 98.5 84 22 109/82 97 98.5 01/26/18 17:43 97.3 01/26/18 17:13 97.3 01/26/18 16:55 97.3 62 18 121/84 100 Room Air 97.3 01/26/18 14:05 98.8 01/26/18 12:00 98.8 70 19 114/76 96 Room Air 98.8 Intake and Output 01/26/18 01/27/18 19:00 07:00 Intake Total 3107.5 ml 1990.0 ml Output Total 7900 ml Balance -4792.5 ml 1990.0 ml Intake Oral 1750 ml 400 ml IV Total 1357.5 ml 1590.0 ml Output Urine Total 300 ml Other 7600 ml Height (Feet): 5 Height (Inches): 4.00 Weight (Pounds): 119 General Appearance: no apparent distress Objective no change LANDEN CEBALLOS Jan 27, 2018 09:09
[2018-01-27] MEDS: Pantoprazole Inj IVP SCH ×2 (09:34→20:58)
[2018-01-27] MEDS ORDERED: D5NS 1000ml IV ONE ×2 (10:55→18:43)
[2018-01-27] MEDS: D5NS 1,000 ML IV SCH (10:59)
[2018-01-27 12:00] VITALS: BP 113/82
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
[2018-01-27 16:00] VITALS: BP 129/99
[2018-01-27] MEDS ORDERED: Tubing IV Secondary IV ONE (18:43)
[2018-01-27] MEDS ORDERED: NS 275ml ONE (18:43)
[2018-01-27 20:00] VITALS: BP 120/81
[2018-01-27] MEDS: Dyna-Hex 2% Top Sol 2oz TOPIC SCH (20:58)
[2018-01-27] MEDS: [UNRECOGNIZED DRUG - OTHER] IV SCH (21:03)
[2018-01-27] MEDS: PARENTERAL NUTRITION IV SCH (21:03)
[2018-01-28] VITALS: BP 120/83
[2018-01-28] MEDS: DiphenhydrAMINE 50mg/ml Inj IVP PRN ×3 (03:02→18:26)
[2018-01-28] MEDS: ZyPREXA Zydis 10mg tab SL PRN (03:17)
[2018-01-28 04:00] VITALS: BP 124/89
[2018-01-28] MEDS: NovoLOG Insulin Flexpen SUBQ SCH ×4 (06:52→18:00)
[2018-01-28 08:00] VITALS: BP 104/89
[2018-01-28 08:17] LABS: ANION GAP 13 mmol/L (5-15); BLOOD UREA NITROGEN 35 mg/dL (7-18); CALCIUM 9.1 MG/DL (8.5-10.1); CARBON DIOXIDE 19 MMOL/L (21-32); CHLORIDE 111 MMOL/L (98-107); CREATININE 1.2 MG/DL (0.55-1.30); PHOSPHORUS 4.4 MG/DL (2.5-4.9); POTASSIUM 4.2 MMOL/L (3.5-5.1); SODIUM 143 MMOL/L (136-145)
[2018-01-28] MEDS: Pantoprazole Inj IVP SCH (09:17)
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
[2018-01-28 12:00] VITALS: BP 123/77
[2018-01-28] MEDS ORDERED: PROTONIX40 MG ORAL (12:14)
[2018-01-28] MEDS ORDERED: ZYPREXA ZYDIS10 MG SL (12:14)
[2018-01-28] MEDS ORDERED: NOVOLOG100 UNITS1 SUBQ (12:14)
[2018-01-28] MEDS ORDERED: NORCO 10-325 T1 EACH ORAL (12:16)
[2018-01-28] MEDS: D5NS 1,000 ML IV SCH ×2 (13:41)
--- NOTE | 2018-01-28 15:22 | Nephrology Progress Note ---
Assessment/Plan Problem List: (1) Acute renal failure (ARF) Assessment: cr lowering (2) Intractable vomiting (3) Dehydration (4) Hypokalemia Assessment Mag low corrected stable on TPN (1) Acute renal failure cr lowering (2) Dehydration (3) Hypokalemia improving (4) h/o Abdominal pain (5) History of nephrectomy (6) H/O splenectomy Plan Plan: K & Mag supp as needed TPN down to pain meds Urine studies Monitor renal parameters avoid nephrotoxics Per orders Subjective ROS Limited/Unobtainable: No Constitutional: Reports: malaise Objective Objective Last 24 Hour Vital Signs Date Time Temp Pulse Resp B/P (MAP) Pulse Ox O2 Delivery O2 Flow Rate FiO2 01/28/18 12:00 98.2 80 19 123/77 96 98.2 01/28/18 08:00 98.0 77 19 104/89 96 98.0 01/28/18 04:00 97.7 65 19 124/89 96 97.7 01/28/18 00:00 97.8 69 21 120/83 100 97.8 01/27/18 20:00 98.8 77 21 120/81 97 98.8 01/27/18 16:00 97.7 56 19 129/99 96 97.7 Intake and Output 01/27/18 01/28/18 19:00 07:00 Intake Total 1072.5 ml 1590.0 ml Output Total 400 ml 7050 ml Balance 672.5 ml -5460.0 ml Intake Oral 710 ml IV Total 362.5 ml 1590.0 ml Output Urine Total 400 ml 800 ml Other 6250 ml Laboratory Tests 01/28/18 06:20: Sodium Level 143, Potassium Level 4.2, Chloride Level 111H, Carbon Dioxide Level 19L, Anion Gap 13, Blood Urea Nitrogen 35H, Creatinine 1.2, Estimat Glomerular Filtration Rate > 60, Glucose Level 61L, Calcium Level 9.1, Phosphorus Level 4.4, Magnesium Level 1.8 Height (Feet): 5 Height (Inches): 4.00 Weight (Pounds): 119 General Appearance: no apparent distress Objective no change LANDEN CEBALLOS Jan 28, 2018 15:22
[2018-01-28 16:00] VITALS: BP 118/86
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
[2018-01-28 20:00] VITALS: BP 125/74
[2018-01-28] MEDS ORDERED: D5NS 1000ml IV ONE (20:29)
--- NOTE | 2018-01-31 07:38 | Discharge Summary ---
Discharge Summary Hospital Course Date of Admission Jan 09, 2018 at 13:43 Date of Discharge Jan 28, 2018 at 20:30 Admitting Diagnosis malnutrion,weakness,dehydration HPI Severiano Bell is a 28 year old male who was admitted on Jan 09, 2018 at 13:43 for Malnutricion,Weakness, Dehydration Hospital Course dc summary #[id number] Discharge Discharge Disposition Patient was discharged to [facility] (01) Ruben RichardSelina hess NP Jan 31, 2018 07:38
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
== END 2018-01-28 20:30 | disposition home health service (06) | DRG 469 ==
LOC: EDBD 10:17 → EDBEDREQ 10:59 → EMR 11:38 → EDBEDREQSVC 12:44 → 2E 13:43 → EDBEDREQ 14:04 → 2E 14:47 → 4W 01-10 20:13 → ICU 01-11 18:51 → 4E 01-12 13:09
DX: N17.9 Acute kidney failure, unspecified (principal); E43 Unspecified severe protein-calorie malnutrition; E87.2 Acidosis; E10.649 Type 1 diabetes mellitus with hypoglycemia without coma; K91.2 Postsurgical malabsorption, not elsewhere classified; I47.1 Supraventricular tachycardia; E86.0 Dehydration; E16.2 Hypoglycemia, unspecified; Z90.5 Acquired absence of kidney; Z90.81 Acquired absence of spleen; Z90.49 Acquired absence of other specified parts of digestive tract; X93.XXXS Assault by handgun discharge, sequela; E87.6 Hypokalemia; E83.42 Hypomagnesemia; R11.2 Nausea with vomiting, unspecified; Z79.4 Long term (current) use of insulin
CPT/HCPCS: 36415; 70450; 71045; 80048; 80053; 82150; 82533; 82607; 82728; 82746; 82962; 82977; 83540; 83550; 83605; 83690; 83735; 83880; 84100; 84478; 84484; 84550; 85007; 85025; 86140; 86705; 86709; 86710; 86803; 87040; 87081; 87340; 93005; 93306; 93970; 94760; 99291; J1815; J2405

== ENCOUNTER 2018-02-04 14:15 | Emergency (ER) | payer MEDICAID ==
[~2018-02-04] VITALS: Ht 165.1 cm; Wt 56.7 kg
[~2018-02-04 14:15] MED LIST changes: +NORCO 10-325 T1 EACH ORAL; +NOVOLOG100 UNITS1 SUBQ; +PROTONIX40 MG ORAL; +ZYPREXA ZYDIS10 MG SL
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
[2018-02-04 14:51] VITALS: BP 105/67
[2018-02-04 15:00] VITALS: BP 103/77
[2018-02-04 15:41] LABS: HEMATOCRIT 37.3 % (42.0-52.0); MEAN CORPUSCULAR VOLUME 103 FL (80-99); PLATELET COUNT 332 K/UL (150-450); RED BLOOD COUNT 3.63 M/UL (4.70-6.10); RED CELL DISTRIBUTION WIDTH 13.9 % (11.6-14.8); WHITE BLOOD COUNT 7.8 K/UL (4.8-10.8)
[2018-02-04 16:29] LABS: ALANINE AMINOTRANSFERASE 18 U/L (12-78); ALBUMIN 4.1 G/DL (3.4-5.0); ALBUMIN/GLOBULIN RATIO 0.8 (1.0-2.7); ALKALINE PHOSPHATASE 284 U/L (46-116); ASPARTATE AMINO TRANSFERASE 40 U/L (15-37); BILIRUBIN,TOTAL 0.8 MG/DL (0.2-1.0); BLOOD UREA NITROGEN 82 mg/dL (7-18); CALCIUM 9.5 MG/DL (8.5-10.1); CHLORIDE 72 MMOL/L (98-107); CKMB < 0.5 NG/ML (0.0-3.6); CREATINE KINASE 33 U/L (26-308); CREATININE 2.3 MG/DL (0.55-1.30); PHOSPHORUS 6.6 MG/DL (2.5-4.9); SODIUM 145 MMOL/L (136-145)
[2018-02-04] MEDS ORDERED: HYDROmorphone 1mg/ml Carpuject IVP ONE (16:30)
[2018-02-04 16:31] LABS: CARBON DIOXIDE > 45 MMOL/L (21-32)
--- NOTE | 2018-02-04 16:58 | Diagnostic Imaging Report ---
Indication: Shortness of breath Technique: One view of the chest Comparison: 01/11/2018 Findings: Lungs and pleural spaces are clear. Heart size is normal. There is a right arm PICC. There is evidence of prior abdominal surgery. No significant change Impression: No acute process
[2018-02-04 17:00] VITALS: BP 98/74
[2018-02-04] MEDS: Potassium Chloride 40 MEQ in Sodium Chloride 500ML 550 ML IVPB ONE (17:35)
[2018-02-04 19:00] VITALS: BP 103/75
[2018-02-04] MEDS ORDERED: Mylanta II UD 30ml ORAL PRN (19:45)
[2018-02-04] MEDS ORDERED: Metoclopramide 10mg/2ml Inj IVP PRN (19:45)
[2018-02-04] MEDS ORDERED: Morphine Sulfate 2mg/ml Inj IVP PRN (19:45)
[2018-02-04] MEDS ORDERED: Miralax 17gm pkt ORAL PRN (19:45)
[2018-02-04] MEDS ORDERED: Nitroglycerin Subl 0.4mg tab SL PRN (19:45)
[2018-02-04] MEDS ORDERED: LORazepam Inj 2mg/ml 1ml IV PRN (19:45)
[2018-02-04] MEDS ORDERED: HYDROcodone/Acetamin 10/325 tab ORAL PRN (19:45)
[2018-02-04] MEDS ORDERED: D5 1/2NS 1,000 ML IV SCH (20:00)
[2018-02-04 20:16] LABS: APPEARANCE,URINE CLEAR; BILIRUBIN, URINE NEGATIVE (NEGATIVE); COLOR,URINE PALE YELLOW; GLUCOSE, URINE (UA) NEGATIVE (NEGATIVE); KETONES,URINE NEGATIVE (NEGATIVE); LEUKOCYTE ESTERASE ,URINE NEGATIVE (NEGATIVE); NITRITE,URINE NEGATIVE (NEGATIVE); PH,URINE 8 (4.5-8.0); PROTEIN,URINE 3+ (NEGATIVE); UROBILINOGEN,URINE NORMAL MG/DL (0.0-1.0)
[2018-02-04 21:00] VITALS: BP 99/79
[2018-02-04] MEDS ORDERED: ZyPREXA Zydis 10mg tab SL SCH (21:00)
[2018-02-04] MEDS ORDERED: Heparin 5000 units/ml inj SUBQ SCH (21:00)
[2018-02-04 23:00] VITALS: BP 113/82
[2018-02-05 01:00] VITALS: BP 104/78
[2018-02-05] MEDS ORDERED: DiphenhydrAMINE 50mg/ml Inj ONE (01:36)
[2018-02-05] MEDS: HYDROmorphone 1 MG, DiphenhydrAMINE 25 MG in NS 55 ML IV ONE (01:56)
[2018-02-05 03:30] VITALS: BP 102/75
[2018-02-05 03:57] VITALS: BP 102/75
[2018-02-05] MEDS ORDERED: Pantoprazole Inj IV SCH (09:00)
--- NOTE | 2018-02-05 17:43 | Cardiology Report ---
APPROVED REPORT EKG Measurement Heart [id number] Normal sinus rhythm Right atrial enlargement Nonspecific ST and T wave abnormality Prolonged QT Abnormal ECG
== END 2018-02-05 03:57 | disposition short-term general hospital (02) ==
LOC: EDBD 14:15 → EMR 15:55 → EDBEDREQ 16:54 → UNDOADMIN 17:55 → 2E 17:55 → EDBEDREQ 19:08 → EMR 02-05 03:57
DX: K91.2 Postsurgical malabsorption, not elsewhere classified (principal); E87.6 Hypokalemia; R53.1 Weakness; Z93.3 Colostomy status; Z88.5 Allergy status to narcotic agent; Z88.8 Allergy status to other drugs, medicaments and biological substances
CPT/HCPCS: 36415; 71045; 80053; 81003; 82550; 82553; 83605; 83735; 83880; 84100; 84132; 84484; 85007; 85025; 86710; 87040; 93005; 96374; 96375; 99285; J1170; J1200; J3480; J7040